=== PATIENT | female | born 1955 | race Caucasian/White ===

== ENCOUNTER 2016-05-27 15:15 | Outpatient (CLI) | payer MEDICARE, OTHER | END 2016-05-27 15:16 | disposition home or self-care (01) | DX: J47.9 Bronchiectasis, uncomplicated (principal); B44.81 Allergic bronchopulmonary aspergillosis; J45.909 Unspecified asthma, uncomplicated ==

== ENCOUNTER 2016-07-22 12:02 | Emergency (ER) | payer MEDICARE, OTHER ==
[2016-07-22] MEDS ORDERED: SODIUM CHLORIDE 0.9% 1,000 ML IV ONE ×2 (13:35→14:20)
[2016-07-22] MEDS ORDERED: ONDANSETRON 4 MG/2 ML VIAL IVP STA (13:36)
[2016-07-22] MEDS ORDERED: FAMOTIDINE 20 MG/50 ML 50 ML IV ONE ×2 (13:36→14:20)
[2016-07-22] MEDS ORDERED: HYDROmorphone 1 MG/ML SYRINGE IVP STA (13:36)
[2016-07-22] MEDS ORDERED: MAG HYDROX/AL HYDROX/SIMETH 30 ML UDC PO STA (13:36)
[2016-07-22] MEDS ORDERED: MAG HYDROX/AL HYDROX/SIMETH 30 ML UDC ONE (14:20)
[2016-07-22] MEDS ORDERED: ONDANSETRON 4 MG/2 ML VIAL ONE (14:20)
[2016-07-22] MEDS ORDERED: HYDROmorphone 1 MG/ML SYRINGE ONE ×2 (14:20→18:12)
[2016-07-22] MEDS ORDERED: ONDANSETRON 4 MG/2 ML VIAL IM STA (14:43)
[2016-07-22] MEDS ORDERED: HYDROmorphone 1 MG/ML SYRINGE IM STA ×2 (14:43→18:01)
[2016-07-22] MEDS ORDERED: FAMOTIDINE 20 MG TABLET PO STA (18:01)
[2016-07-22] MEDS ORDERED: FAMOTIDINE 20 MG TABLET ONE (18:12)
== END 2016-07-22 18:45 | disposition home or self-care (01) ==
DX: K80.20 Calculus of gallbladder without cholecystitis without obstruction (principal); K21.9 Gastro-esophageal reflux disease without esophagitis; E03.9 Hypothyroidism, unspecified
CPT/HCPCS: 36415; 76700; 80053; 81001; 83690; 85025; 87339; 96372; 99283; 99284; A9270; J1170

== ENCOUNTER 2016-09-22 11:47 | Outpatient (CLI) | payer MEDICARE, OTHER | END 2016-09-22 11:48 | disposition home or self-care (01) | DX: R19.02 Left upper quadrant abdominal swelling, mass and lump (principal) ==

== ENCOUNTER 2016-09-23 07:16 | Outpatient (CLI) | payer MEDICARE, OTHER ==
[2016-09-23] MEDS ORDERED: IOPAMIDOL-300 50 ML VIAL PO ONE (10:20)
[2016-09-23] MEDS ORDERED: IOPAMIDOL-300 100 ML VIAL IVP ONE (10:20)
== END 2016-09-23 07:17 | disposition home or self-care (01) ==
DX: K45.8 Other specified abdominal hernia without obstruction or gangrene (principal); K43.9 Ventral hernia without obstruction or gangrene
CPT/HCPCS: 74177; Q9967

== ENCOUNTER 2016-11-10 08:21 | Outpatient (CLI) | payer MEDICARE, OTHER ==
[2016-11-10] MEDS ORDERED: BARIUM SULFATE 135 ML BOTTLE PO ONE (21:58)
[2016-11-10] MEDS ORDERED: BARIUM SULFATE 176 GM BOTTLE PO ONE (21:58)
[2016-11-10] MEDS ORDERED: SIMETHICONE/SOD BICARB/CIT AC 1 EACH PACKET PO ONE (21:58)
--- NOTE | 2016-11-11 10:30 | XRAY Report ---
AIR CONTRAST UPPER GI SERIES AND SMALL BOWEL FOLLOW THROUGH: 11/11/2016 CLINICAL HISTORY: History of abdominal hernia plus lumbar hernia. The patient also has had a Micah procedure. FINDINGS: Preliminary KUB demonstrates extensive spinal surgery. Disla rods and pedicle screws are noted in place throughout the lumbar spine and extending into the lower thoracic spine. There is also evidence of disk prostheses at multiple levels including T11-T12, T12-L1, L1-L2, L2-L3, L3-L4, L4 -L5 and L5-S1. The bowel gas pattern demonstrates significant constipation. This constipation most likely is related to patient's pain medication including MS-Contin and OxyContin. There is interstitial parenchymal disease suggested in the right lower lobe. This raises concern in regard to chronic aspiration. Recommend a chest PA and lateral for further evaluation. Because of the severe constipation noted, Dr. Galan had an extensive conversation with the patient regarding either taking laxatives and coming back the following day or proceeding with the exam and then taking laxatives following the procedure. The patient chose to proceed with the examination today and indicated that she will take laxatives and enemas following the procedure to help eliminate the barium. Because of the significant constipation noted, it was decided only to give the patient two bottles of barium rather than the usual three for the small bowel follow through portion of the exam. The esophagus demonstrates evidence of a Micah procedure with narrowing and mild deformity of the gastric cardia due to the Micah procedure. Despite the Micah procedure, a moderate degree of gastroesophageal reflux is noted during the course of the examination. No hiatal hernia was seen. Esophageal motility was normal. As indicated above, deformity of the gastric cardia and small section of the upper body of the stomach is noted related to the Micah procedure. This deformity includes some narrowing in these areas. The rest of the stomach showed no obvious abnormality. There was some retained particulate matter noted. This most likely is related to decrease in patient's gastric motility due to her pain medication. Interestingly, there was peristalsis noted on present exam in both the stomach and duodenal bulb and therefore no gastroparesis was seen. The duodenal bulb shows no deformity. The duodenal sweep is normal. Small bowel follow through was done. Movement of barium through the small bowel was extremely slow especially through the ileum. The barium column did not reach the colon even at nearly eight hours following the start of the examination. The patient did return after twenty-four hours following the start of the examination and the barium column had reached the colon filling the cecum , ascending colon and transverse colon. The small bowel shows no significant dilatation. This slow movement of barium through the small bowel was not related to obstruction but rather to most likely decreased motility due to patient's pain medication regimen. Bowel was not seen in any ventral or spigelian hernia. IMPRESSION: 1. THE PATIENT HAD SIGNIFICANT EVIDENCE OF CONSTIPATION ON PRELIMINARY KUB. THIS MOST LIKELY IS THE RESULT OF HER PAIN MEDICATION REGIMEN OF MS-CONTIN AND OXYCODONE. 2. DEFORMITY OF THE GASTRIC CARDIA AND UPPER BODY OF THE STOMACH IS NOTED RELATED TO A PRIOR MICAH PROCEDURE. DESPITE THE MICAH PROCEDURE, A MODERATE DEGREE OF GASTROESOPHAGEAL REFLUX WAS NOTED. 3. SOME RETAINED FOOD PARTICLES ARE NOTED IN PATIENT'S STOMACH AND DUODENAL BULB. THIS IS A RESULT OF DECREASED GASTRIC MOTILITY DUE TO PATIENT'S PAIN REGIMEN. THE PATIENT DOES, HOWEVER, STILL SHOW SOME GASTRIC MOTILITY AND MOTILITY IN HER DUODENAL BULB AND, THEREFORE, SIGNIFICANT GASTROPARESIS IS NOT SEEN. 4. SMALL BOWEL SHOWS NO EVIDENCE OF OBSTRUCTION. THERE IS SIGNIFICANT DELAY IN SMALL BOWEL TRANSIT TIME MOST LIKELY A RESULT OF PATIENT'S PAIN MEDICATION REGIMENS DISCUSSED ABOVE. 5. MODERATE DEGREE OF INTERSTITIAL PARENCHYMAL DISEASE IS NOTED IN THE LOWER LUNG MOSQUEDA. THIS SUGGESTS CHRONIC ASPIRATION. SUGGEST PA AND LATERAL CHEST FOR FURTHER EVALUATION. ALSO MAY WANT TO DO A MODIFIED BARIUM SWALLOW TO CHECK FOR ASPIRATION. 6. EXTENSIVE SPINAL SURGERY IS SEEN WITH DISLA RODS AND PEDICLE SCREWS IN PLACE. THESE EXTEND FROM T10 DOWN THROUGH S1. DISK PROSTHESES ARE ALSO NOTED AT T11-T12, T12-L1, L1-L2, L2-L3, L3-L4, L4-L5 AND L5-S1. ADDENDUM: Fluoro time was 8 minutes and 41 seconds. This includes the fluoro time for both the upper GI series and small bowel follow through, 34 fluoroscopic images were obtained. END OF ADDENDUM MTDD
== END 2016-11-10 08:22 | disposition home or self-care (01) ==
LOC: DI 08:21
PROVIDERS: ATTEND Family Medicine
DX: K30 Functional dyspepsia (principal); K59.00 Constipation, unspecified; K21.9 Gastro-esophageal reflux disease without esophagitis; R91.8 Other nonspecific abnormal finding of lung field
CPT/HCPCS: 74249

== ENCOUNTER 2016-11-17 10:44 | Outpatient (CLI) | payer MEDICARE, OTHER | END 2016-11-17 10:45 | disposition critical access hospital (66) | LOC: EMS 10:44 | PROVIDERS: ATTEND Surgery | DX: M25.552 Pain in left hip (principal); M54.5 Low back pain; W01.0XXA Fall on same level from slipping, tripping and stumbling without subsequent striking against object, initial encounter; Y92.009 Unspecified place in unspecified non-institutional (private) residence as the place of occurrence of the external cause | CPT/HCPCS: A0425; A0427 ==

== ENCOUNTER 2016-11-17 11:06 | Inpatient (IN) | payer MEDICARE, OTHER ==
[2016-11-17] MEDS ORDERED: HYDROmorphone 1 MG/ML SYRINGE ONE ×3 (11:33→12:15)
--- NOTE | 2016-11-17 11:39 | ED Physician Documentation ---
PD HPI LOWER EXT INJURY - Stated complaint Stated Complaint: L HIP PX - Chief complaint Chief Complaint: Ext Problem - History obtained from History obtained from: Patient, EMS - History of Present Illness PD HPI LOW EXT INJURY LOCATION: Left, Hip Type of injury: Fall Where injury occurred: Home Timing - onset: Today Timing - duration: Hours Timing - details: Abrupt onset, Still present Improved by: Rest, Immobilization Worsened by: Moving, Palpating Associated symptoms: No: Weakness, Numbness, Tingling Contributing factors: No: Anticoagulated Similar symptoms before: Has not had sx before Recently seen: Clinic (Seen in the clinic with bronchiectasis and was on doxy and has finished this.) - Additional information Additional information: 61-year-old female with a history of osteopenia and bronchiectasis has fallen and broken her left hip. She was in her yard today getting ready to talk to her when she tripped over her broom. She landed on the left side has obvious deformity of the left hip and pain. She does have a history of abdominal and lumbar hernias these are unchanged from her usual. She does have some bronchiectasis and has recently taken a course of doxycycline she does not feel that she is completely recovered from that prior episode. She is on chronic pain management. Review of Systems Constitutional: denies: Fever Eyes: denies: Decreased vision Ears: denies: Ear pain Nose: denies: Congestion Throat: denies: Sore throat Cardiac: denies: Chest pain / pressure, Palpitations Respiratory: reports: Dyspnea, Cough GI: denies: Abdominal Pain, Nausea, Vomiting : denies: Dysuria, Frequency Skin: denies: Rash Musculoskeletal: reports: Back pain, Extremity pain, Joint pain. denies: Neck pain Neurologic: denies: Generalized weakness, Focal weakness, Numbness PD PAST MEDICAL HISTORY - Past Medical History Past Medical History: Yes Cardiovascular: None Respiratory: Asthma, Pneumonia, Shortness of breath Neuro: None Endocrine/Autoimmune: HyPOthyroidism GI: GERD, Other : Frequency HEENT: None Psych: Depression Musculoskeletal: Osteoarthritis, Osteopenia, Scoliosis, Chronic back pain Derm: None Other Past Medical History: oxygen at noc and prn. bronchiectasis. lumbar hernia, hiatal hernia? tarsal tunnel left ankle. "bad gallbladder" - Past Surgical History Past Surgical History: Yes General: Colonoscopy Ortho: Spine surgery - Present Medications Home Medications: Ambulatory Orders Medication Instructions Recorded Confirmed Ciclesonide [Omnaris] 1 sprays HENRY BID 12/12/12 11/17/16 Meloxicam [Mobic] 15 mg PO DAILY 12/12/12 11/17/16 Montelukast Sodium [Singulair] 10 mg PO DAILY 12/12/12 11/17/16 Ipratropium/Albuterol [Duoneb] 1 amp INH QID PRN 10/27/13 11/17/16 Albuterol Sulf [Ventolin Hfa 2 puffs INH Q4H PRN 11/17/16 11/17/16 Inhaler] Alendronate [Fosamax] 70 mg PO Q7D 11/17/16 11/17/16 Dicyclomine [Bentyl] 10 mg PO BID PRN 11/17/16 11/17/16 Esomeprazole Magnesium [Nexium] 40 mg PO QDAC 11/17/16 11/17/16 Fluticasone 220 Mcg [Flovent] 2 puffs INH BID 11/17/16 11/17/16 Levocetirizine Dihydrochloride 5 mg DAILY 11/17/16 11/17/16 [Xyzal] Levothyroxine Sodium [Synthroid] 50 mcg PO QDAC 11/17/16 11/17/16 Loratadine [Claritin] 10 mg PO DAILY 11/17/16 11/17/16 Morphine Sulfate [Ms Contin] 15 mg PO BID 11/17/16 11/17/16 Voriconazole [Vfend] 200 mg BID 11/17/16 11/17/16 oxyCODONE [Roxicodone] 5 mg PO BID PRN 11/17/16 11/17/16 - Allergies Allergies/Adverse Reactions: Allergies Allergy/AdvReac Type Severity Reaction Status Date / Time peanut Allergy Severe anaphylaxis Verified 11/17/16 11:10 Penicillins Allergy Intermediate unknown Verified 11/17/16 11:10 hydroxyzine HCl * Allergy Anxiety Verified 11/17/16 11:10 [From Vistaril] hydroxyzine pamoate * Allergy Anxiety Verified 11/17/16 11:10 [From Vistaril] tetanus toxoid, adsorbed Allergy Respiratory Verified 11/17/16 11:10 peas Allergy Intermediate unknown Uncoded 11/17/16 11:10 - Social History Does the pt smoke?: No Smoking Status: Never smoker Does the pt drink ETOH?: Yes Does the pt have substance abuse?: No - Immunizations Immunizations are current?: Yes - POLST Patient has POLST: No PD ED PE NORMAL - Vitals Vital signs reviewed: Yes (hypertension ) - General General: Well developed/nourished, Other (The patient appears to be in pain ) - HEENT HEENT: PERRL - Neck Neck: Supple, no meningeal sign, No bony TTP - Cardiac Cardiac: RRR, No murmur - Respiratory Respiratory: No respiratory distress, Other (bibasilar rhonchi worse on the left. ) - Abdomen Abdomen: Soft, Other (There is a central ventral hernia and the hernia is non- tender and without mass palpable. There are well healed surgical scars. ) - Back Back: No CVA TTP, No spinal TTP - Derm Derm: Normal color, No rash - Extremities Extremities: Other (There is shortening and external rotation on the left. There is pain to palpation over the trohcanter and with any movement of the left leg. ) Results - Vitals Vitals: Vital Signs - 24 hr 11/17/16 11/17/16 11/17/16 11:08 11:31 12:13 Temperature 36.9 C Heart Rate 73 80 77 Respiratory 17 16 Rate Blood Pressure 137/73 H 142/69 H O2 Saturation 93 93 92 11/17/16 11/17/16 11/17/16 12:20 12:35 13:27 Temperature Heart Rate 78 77 83 Respiratory 18 18 18 Rate Blood Pressure 130/70 130/70 127/73 O2 Saturation 90 L 93 96 Oxygen O2 Source Nasal cannula Oxygen Flow Rate 2 - EKG (time done) 1146 Rate: Rate (enter#) (75) Rhythm: NSR QRS: Low voltage Compare to prior EKG: Unchanged from prior EKG (10-27-14) Computer interpretation: Agree with computer - Labs Labs: Laboratory Tests 11/17/16 11/17/16 11/17/16 11:40 11:40 11:40 WBC 11.8 H RBC 4.18 L Hgb 11.4 L Hct 34.9 L MCV 83.4 MCH 27.3 MCHC 32.7 RDW 15.6 H Plt Count 359 MPV 7.4 L Neut # 9.6 H Lymph # 1.2 L Crowley # 0.8 Eos # 0.1 Baso # 0.0 Absolute Nucleated RBC 0.00 Nucleated RBCs 0.0 Sodium 138 Potassium 4.4 Chloride 105 Carbon Dioxide 26 Anion Gap 7.0 BUN 16 Creatinine 0.7 Estimated GFR (MDRD) 85 L Glucose 126 H Calcium 8.1 L Total Bilirubin 0.7 AST 38 ALT 33 Alkaline Phosphatase 200 H Troponin I < 0.04 Total Protein 6.4 L Albumin 3.2 Globulin 3.2 Albumin/Globulin Ratio 1.0 Lipase 14 L - Rads (name of study) 1 view chest Radiology: Prelim report reviewed (Impression: 1. Chronic interstitial infiltrates appear stable.2. Right midlung nodular density similar to slightly increased. Apparent new left-sided nodular density could represent a healed or healing rib fracture but a pulmonary nodule is not excluded. CT imaging could be considered for further evaluation.), EMP read indepedently, See rad report Left hip with pelvis Radiology: Prelim report reviewed (Impression: 1. Comminuted, displaced left intertrochanteric hip fracture.2 status post lumbar surgical fusion.), EMP read indepedently, See rad report Femur 2 view left Radiology: Prelim report reviewed (Impression: 1. Images of the distal femur demonstrate no acute abnormality. Refer to the recent left hip exam regarding proximal femur fracture. 2. Knee degenerative disease, substantially progressed compared to 2008.3. Very small knee joint effusion.), EMP read indepedently, See rad report PD MEDICAL DECISION MAKING - ED course Complexity details: reviewed old records, reviewed results, re-evaluated patient , considered differential, d/w patient, d/w family ED course: 61-year-old female with a history of bronchiectasis and osteopenia has fallen and broken her hip. Dr. Sanchez is consulted in the case and has asked for medicines help in managing the patient. Departure - Departure Disposition: [facility] DC/Xfer Clinical Impression: Intertrochanteric fracture of left femur Qualifiers: Encounter type: initial encounter Fracture type: closed Qualified Code(s): S72.142A - Displaced intertrochanteric fracture of left femur, initial encounter for closed fracture Condition: Stable Discharge Date/Time: 11/17/16 14:46
[2016-11-17] MEDS ORDERED: HYDROmorphone 1 MG/ML SYRINGE IVP STA ×2 (11:43→12:12)
[2016-11-17 12:03] LABS: BASOPHILS % (AUTO) 0.4 %; EOSINOPHILS # (AUTO) 0.1 10^3/uL (0.0-0.7); EOSINOPHILS % (AUTO) 1.3 %; HCT - HEMATOCRIT 34.9 % (37.0-47.0); HGB - HEMOGLOBIN 11.4 g/dL (12.0-16.0); LYMPHOCYTES # (AUTO) 1.2 10^3/uL (1.5-3.5); LYMPHOCYTES % (AUTO) 10.2 %; MEAN CORPUSCULAR HEMOGLOBIN 27.3 pg (27.0-31.0); MEAN CORPUSCULAR HGB CONC 32.7 g/dL (32.0-36.0); MEAN CORPUSCULAR VOLUME 83.4 fL (81.0-99.0); MEAN PLATELET VOLUME 7.4 fL (7.9-10.8); MONOCYTES # (AUTO) 0.8 10^3/uL (0.0-1.0); NEUTROPHILS # (AUTO) 9.6 10^3/uL (1.5-6.6); NEUTROPHILS % (AUTO) 81.1 %; RED BLOOD COUNT 4.18 10^6/uL (4.20-5.40); RED CELL DISTRIBUTION WIDTH 15.6 % (12.0-15.0); UNCORRECTED WHITE BLOOD COUNT 11.8 x10^3/uL; WHITE BLOOD COUNT 11.8 x10^3/uL (4.8-10.8)
[2016-11-17 12:16] LABS: BILIRUBIN,TOTAL 0.7 mg/dL (0.2-1.0); CALCIUM 8.1 mg/dL (8.5-10.3); CREATININE 0.7 mg/dL (0.4-1.0); POTASSIUM 4.4 mmol/L (3.5-5.0); TOTAL PROTEIN 6.4 g/dL (6.7-8.2)
--- NOTE | 2016-11-17 12:34 | XRAY Preliminary Report ---
Exam: XR Hip w/Pelvis 2-3V LT IMPRESSION: 1. Comminuted, displaced left intertrochanteric hip fracture. 2. Status post lumbar surgical fusion. [facility] SITE ID: [id number]
--- NOTE | 2016-11-17 12:37 | XRAY Report ---
EXAM: RIGHT/LEFT HIP AND PELVIS RADIOGRAPHY EXAM DATE: 11/17/2016 12:12 PM. HISTORY: Left hip fracture. COMPARISONS: None. TECHNIQUE: 1 view of the pelvis and 1 view of the hip. FINDINGS: Bones: Comminuted, displaced and angulated left intertrochanteric hip fracture. No other definite fra cture or bone lesions. Partial demonstration of changes of surgical fusion extending from S1 to at le ast L3. Joints: No dislocation. Soft Tissues: Residual enteric contrast within the colon, presumably from the upper GI/small bowel fo llow-through 11/10/2016. IMPRESSION: 1. Comminuted, displaced left intertrochanteric hip fracture. 2. Status post lumbar surgical fusion. [facility] Referring Provider Line: [phone] SITE ID: [id number]
--- NOTE | 2016-11-17 12:41 | XRAY Preliminary Report ---
Exam: XR Chest 1 View IMPRESSION: 1. Chronic interstitial infiltrates appear stable. 2. Right midlung nodular density is similar to slightly increased. Apparent new left-sided nodular de nsity could represent a healed or healing rib fracture but a pulmonary nodule is not excluded. CT juana ging could be considered for further evaluation. 3. Postoperative changes of the spine. [facility] SITE ID: [id number]
--- NOTE | 2016-11-17 12:44 | XRAY Report ---
EXAM: CHEST RADIOGRAPHY EXAM DATE: 11/17/2016 12:12 PM. CLINICAL HISTORY: Cough hip fracture. COMPARISON: 2 views 05/27/2016. TECHNIQUE: 1 view. FINDINGS: Lungs/Pleura: Mild bibasilar testis show infiltrates and mild diffuse increase interstitial markings appear similar. Subtle nodule within the right lung near the anterior end of the third rib is similar to slightly increased. Nodular density projecting over the left upper lung is relatively dense and s uperimposed over the posterior sixth rib and could represent a healed or healing fracture although it is not confirmed previously. Underlying pulmonary nodule is a consideration. No gross pleural effusi on. No pneumothorax. Mediastinum: Within exam limitations, cardiomediastinal contour is normal. Other: No definite acute osseous abnormality. Partial demonstration of lower thoracic and upper lumba r posterior surgical fusion and lower thoracic vertebroplasties. Partial demonstration of anterior hair rgical fusion of lower cervical spine. IMPRESSION: 1. Chronic interstitial infiltrates appear stable. 2. Right midlung nodular density is similar to slightly increased. Apparent new left-sided nodular de nsity could represent a healed or healing rib fracture but a pulmonary nodule is not excluded. CT juana ging could be considered for further evaluation. 3. Postoperative changes of the spine. [facility] Referring Provider Line: [phone] SITE ID: [id number]
--- NOTE | 2016-11-17 12:56 | XRAY Preliminary Report ---
Exam: XR Femur 2V LT IMPRESSION: 1. Images of the distal femur demonstrate no acute abnormality. Refer to the recent left hip exam reg arding a proximal femoral fracture. 2. Knee degenerative disease, substantially progressed compared to 2008. 3. Very small knee joint effusion. [facility] SITE ID: [id number]
--- NOTE | 2016-11-17 12:59 | XRAY Report ---
EXAM: LEFT FEMUR RADIOGRAPHY EXAM DATE: 11/17/2016 12:45 PM. CLINICAL HISTORY: Hip fx. COMPARISON: Left hip earlier on same day. Left knee 10/06/2007. TECHNIQUE: 2 views. FINDINGS: Bones: The proximal femur is not included but was included on the preceding hip exam which demonstrat ed a comminuted proximal femoral fracture. No fracture or acute bone lesion of the distal femur. Joints: Moderate 3 compartment knee osteoarthritis, substantially progressed from 2007. Very small apryl int effusion. No knee joint space malalignment. Soft Tissues: Normal. No soft tissue swelling. IMPRESSION: 1. Images of the distal femur demonstrate no acute abnormality. Refer to the recent left hip exam reg arding a proximal femoral fracture. 2. Knee degenerative disease, substantially progressed compared to 2007. 3. Very small knee joint effusion. [facility] Referring Provider Line: [phone] SITE ID: [id number]
[2016-11-17] MEDS ORDERED: fentaNYL 100 MCG/2 ML VIAL IVP STA (13:16)
[2016-11-17] MEDS ORDERED: fentaNYL 100 MCG/2 ML VIAL ONE (13:20)
[2016-11-17] MEDS ORDERED: HYDROmorphone 1 MG/ML SYRINGE IVP PRN ×4 (15:06→15:38)
--- NOTE | 2016-11-17 15:27 | CONSULTATION NOTE ---
Surgery Consult - Admit Date Hospital Admission Date: 11/17/16 - Consult Date Consult Date: 11/17/16 Requesting Provider: Sam Berry - Home Meds/Allergies Home Medications: Patient History Medication Instructions Recorded Confirmed Albuterol [Ventolin Hfa] 2 puffs INH Q4H PRN 12/12/12 11/17/16 Ciclesonide [Omnaris] 12.5 gm NS BID 12/12/12 11/17/16 Levothyroxine [Synthroid] 50 mcg PO QDAC 12/12/12 11/17/16 Meloxicam [Mobic] 15 mg PO DAILY 12/12/12 11/17/16 Montelukast Sodium [Singulair] 10 mg PO DAILY 12/12/12 11/17/16 Ipratropium/Albuterol [Duoneb] 1 amp INH QID PRN 10/27/13 11/17/16 Levocetirizine Dihydrochloride 5 mg DAILY 11/17/16 11/17/16 [Xyzal] Loratadine [Claritin] 1 tab DAILY 11/17/16 11/17/16 Morphine Sulfate [Ms Contin] 15 mg BID 11/17/16 11/17/16 Voriconazole [Vfend] 200 mg BID 11/17/16 11/17/16 Allergies/Adverse Reactions: Allergies Allergy/AdvReac Type Severity Reaction Status Date / Time peanut Allergy Severe anaphylaxis Verified 11/17/16 11:10 Penicillins Allergy Intermediate unknown Verified 11/17/16 11:10 hydroxyzine HCl * Allergy Anxiety Verified 11/17/16 11:10 [From Vistaril] hydroxyzine pamoate * Allergy Anxiety Verified 11/17/16 11:10 [From Vistaril] tetanus toxoid, adsorbed Allergy Respiratory Verified 11/17/16 11:10 peas Allergy Intermediate unknown Uncoded 11/17/16 11:10 - Consultation Note Consultation Note: Chief Complaint: Left Hip fracture HPI: 61 yo F with history of bronchiectasis on chronic intermittent antibiotics and prednisone fell at her home over a rake while in her yard. She had immediate pain in her hip and was unable to weight bear. She denies head injury or LOC. She had no hip pain prior to the fall. Her was immediately available and she was transported to [facility] for further evaluation. She was evaluated by Dr. Berry in the ER and imaging demonstrated a displaced unstable left intertrochanteric hip fracture and Ortho was consulted for the fracture, Hospitalist contacted for primary medical management. On initial evaluation patient has isolated pain to the left hip. A calero has been placed. Of note the patient is on chronic narcotics for chronic pain including morphine and oxycodone. She has home O2 available, but notes she checks her O2 levels with a home pulse ox before sleeping with this in place. She was last on Abx for her bronchiactasis 4 days ago. 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 Moderate to severe knee OA present no other fracture noted. Please see Radiology read for further details. Physical Exam: Gen: Alert and oriented, NAD Head: normocephallic atraumatic Card: RRR, no murmur Lung: severe expiratory crackles in bases, in inspiratory wheezes noted BUE: pain-free normal motion, 5/5 strength all groups, sensation and radial pulse intact RLE: pain-free hip/knee/ankle/foot motion, normal motor and sensory function, palpable DP pulse LLE: held in hip flexion/abduction/external rotation limited by pain, non- tender in distal femur/knee/ankle. normal ankle motion present, sensation intact to LT dorsum and plantar foot. palpable DP pulse A/P: 61 yo F with severe chronic respiratory disease, intermittent lung infections on Abx and pred intermittently, on chronic narcotic pain medication, history of significant spinal fusion with an acute unstable closed left intertrochanteric hip fracture of the femur (ICD 10- S72.142A). We discussed at length the diagnosis, risks and benefits of treatment options including surgery vs non-operative management. She has elected to undergo surgical fixation in the form of left femoral intramedullary nail (CPT 81693) - Consent for surgery attained - Appreciate Hospitalist team medical perioperative comanagment - needs preop EKG/Chest XR - needs CBC/CMP/Coags/type and screen - NPO at midnight - discussed with Hospitalist plan to optimize respiratory status preop - bedrest, calero in place (plan for immediate removal POD#1) - DVT proph: SCDs while in bed. Plan 6 weeks lovenox postop starting POD#1 - Will need PT for mobilization postop, OT for home safety need eval - Dispo: likely to home if can pass PT, may require SNIF if having difficulty mobilizing postop, WB status pending surgical findings. Will need follow-up in Ortho clinic 2 weeks postop for wound check then at 6 weeks w/ AP pelvis 2 views left femur to evaluate for healing and to advance WB - Pain management: Appreciate Hospitalist team periop management. Recommend increased narcotic needs as necessary and wean to baseline within 2 weeks postop.
[2016-11-17] MEDS: IPRATROPIUM/ALBUTEROL 3 ML NEB INH SCH ×2 (15:30→20:20)
[2016-11-17] MEDS: SODIUM CHLORIDE FLUSH 0.9% 10 ML SYRINGE IVP SCH ×2 (15:45→21:03)
[2016-11-17] MEDS: SODIUM CHLORIDE 0.9% 1,000 ML IV SCH (15:45)
[2016-11-17 16:37] LABS: INR 1.1 (0.8-1.2); PT - PROTHROMBIN TIME 12.5 secs (9.9-12.6)
[2016-11-17] MEDS ORDERED: HYDROmorphone 1 MG/ML SYRINGE IVP ONE (17:10)
[2016-11-17] MEDS ORDERED: DICYCLOMINE 10 MG CAPSULE PO PRN (18:14)
[2016-11-17] MEDS: HYDROmorphone 1 MG/ML SYRINGE IVP PRN (19:47)
[2016-11-17] MEDS ORDERED: CALCIUM CARBONATE CHEW 500 MG TABLET PO PRN (19:50)
[2016-11-17] MEDS: BUDESONIDE 0.5 MG/2 ML NEB INH SCH (20:20)
--- NOTE | 2016-11-17 20:25 | PROVIDER PROGRESS NOTE ---
Hospitalist Cross-cover Note - Cross-Cover Note Cross-Cover Note: Brief addendum to H/P Progress since admission After a nebulizer treatment , her coarse breath sounds which were scattered are (for the moment) nearly resolved. She reports chest "never clear to auscultation", but perhaps she is not using the nebs freqently enough at home. Will impress upon her before d/c.
--- NOTE | 2016-11-17 20:47 | HISTORY & PHYSICAL EXAMINATION ---
DATE OF ADMISSION: 11/17/2016 PRIMARY CARE PROVIDER: Dr. Krysten Sellers. PRIMARY MANAGER OF PURCHASING: Dr. Bang Quintanilla. CHIEF COMPLAINT: She tripped on a broom on the deck, then fell off the 1 ft high deck and in the process of trying to avoid a "faceplant" landed hard on her left hip with immediate pain. HISTORY OF PRESENT ILLNESS: The patient is a 61-year-old female who was out on her deck today and tripped over a broom, sounds like she tripped off the deck and had immediate left thigh pain She has known osteopenia and takes weekly fosamax. . She was found in the emergency room to have an unstable intratrochanteric femur fracture with lateral cortex extension and lessor trochanter involvement which has already been evaluated by Dr. Rob Sanchez , orthopaedic surgery, who has planned to take her for what sounds like cephalomedullary nailing tomorrow, November 18, after her respiratory status is optimized for surgery given her underlying bronchiectasis. The patient has had longstanding asthma and a diagnosis of bronchiectasis in the last several years with history including an empyema. She is followed by Dr. Bang Quintanilla and reports that she currently is actually "in between infections" and finished a course of doxycycline which was 14 days long, 4 days ago." Her normal sputum at best is light tinged color. She reports it is never clear and she can always tell when she gets chills and night sweats, no fevers, that she is probably developing an infection and she has not felt that way currently. She does not normally have an oxygen requirement. She uses Duoneb's for bronchiectasis, approximately 1 to 4 times a day, "it all depends on how she is doing". Most recently she is only needing it about twice a day and does not generally use a flutter valve, finds that when she is up and around and able to cough that she is able to mobilize her secretions. She has not had an asthma exacerbation since May of this year when she was last on corticosteroid taper which sounds that it started at 60 mg and she was on it for approximately 3 weeks. PAST MEDICAL HISTORY 1. Reactive airway disease as above since childhood. 2. Bronchiectasis. 3. Osteopenia. 4. Abdominal hernia. 5. Hypothyroidism. 6. History of a lumbar hernia 7. Chronic pain from prior spine surgery. SURGICAL HISTORY: 1. Left ankle surgery approximately 11 years ago. 2. 2015 T11 to S1 fusion for scoliosis. 3. Paraesophageal hernia repair in December of 2012. She denies having history with extubations for those surgeries. HOME MEDICATIONS 1. MS Contin 15 mg twice daily. 2. Oxycodone 5 mg tablets for breakthrough pain, she uses anywhere from 2 to 4 during the day and "depends on how much she is up and around and driving." 3. Duoneb's. She uses 1 to 4 per day and "her use of it depends on what her respiratory status is and that varies daily." 4. Fosamax 70 mg once weekly. 5. Nexium 20 mg twice daily. 6. Course of doxycycline of 14 days which was just finished 4 days ago. 7. 500/50 Advair twice daily. 8. Ventolin rescue inhaler every 2 hours if needed for wheezing and she reports not having used that for at least 3 days and has not needed it 9. levothyroxine 50 mcg po daily 10. Voriconazole dose to be verified for bronchiectasis 11. Flexeril prn 12 Bentyl 5 mg prn abdominal pain 13 meloxicam ; dose reconciliation jpending 14 singulair 10 mg po daily. ALLERGIES: 1. PENICILLIN TO WHICH SHE DEVELOPS A RASH AND HIVES. 2. PEANUTS CAUSE REPORTED ANAPHYLAXIS. 3. VISTARIL PER HER MAKES HER "CRAZY." 4. OTHER FOOD ALLERGY INCLUDES TEAS. 5. TETANUS ALLERGY. SOCIAL HISTORY: She is . She has 2 adopted children, 1 aged 10 and 1 aged 13. She reports being very active "taking them around for their daily needs." She did work for [employer] and is currently on disability. The disability started primarily around the time when she was diagnosed with the bronchiectasis. FAMILY HISTORY: Includes non-Hodgkin's lymphoma in her father which was his cause of , mother is still living. According to the she was just diagnosed with a melanoma. Sister has allergies. HABITS: Never smoker as she has had asthma all her life. She has occasional alcohol, which she reports drinking wine when she is at her book club. REVIEW OF SYSTEMS: HEENT: No current night sweats, fever, or intentional weight loss or weight gain. As above, she reports that having some night sweats suggests an incipient pulmonary infection. She does wear glasses. Denies vision changes. CARDIOVASCULAR: She denies chest pain, palpitations, near syncope, or change in activity tolerance. RESPIRATORY: As per the HPI. GI: Denies any nausea or vomiting. She does have chronic constipation on her pain medicines. She reports recently having had a gastric emptying test which she reports was negative. However, she reportedly still has barium in her colon. She does take Senna 3 tablets twice daily with relative success. : She denies any frequency, dysuria, or hesitancy, and does not routinely get urinary tract infection. MUSCULOSKELETAL: She has had lower back surgery as above with some chronic left lower extremity paresthesias, but no prior falls. She is normally up and about without an assistive device. PSYCH: She reports that she tries to be very judicious in her use of pain medicine and she does not want to develop tolerance and indicates that she very infrequently uses more than 4 of her oxycodone daily. ENDOCRINE: She denies any polyuria or polyphagia. HEMATOLOGIC: She denies any easy bruising or bleeding. PHYSICAL EXAMINATION: VITAL SIGNS: VITAL SIGNS in the emergency room on presentation: Afebrile 36.9, heart rate 73, blood pressure 137/73, respiratory rate 17, oxygenation 93% on room air. After several doses of IV opiate in the form of both Fentanyl and IV Dilaudid for pain her respiratory rate remains 18. She is on 2 liters nasal cannula at 96%, that was per her request to be on oxygen. Blood pressure continues 127/73 and heart rate 83. GENERAL: The patient is a very pleasant female lying on the stretcher with her and son at the bedside. She is alert, oriented, and appropriate, not necessarily tangential but extremely garrulous and provides almost excessive information regarding her medical history although she is a good and accurate historian. HEENT: She has ample red hair. She is wearing glasses. Her sclerae are anicteric. Extraocular movements are intact. Oral mucosa is somewhat dry. She has both her own upper and lower teeth, adequate dentition. Her neck is supple. scar on the left neck following a Cspine surgery. Carotids are +2 and with no appreciable bruits. HEART: Regular S1, S2, with no appreciable sounds with a rate of approximately 75. CHEST: She has unlabored respirations at rest. She has an occasional loose cough , but infrequent. There is no audible wheezing without auscultation. On auscultation she has scattered rhonchorous sounds which if she is asked to cough will then clear and reappear elsewhere. There are occasional low pitched sonorous sounds and again these are transient and mobile as far as where these sounds were appearing. ABDOMEN: Notable for a wide midline scar which is well-healed. She has a reducible abdominal hernia that is approximately mandarin orange sized in her right upper abdomen. Her bowel sounds are positive in all quadrants. Her abdomen is soft, nondistended, nontender. There is no suprapubic tenderness. She has a Schwartz intact draining clear yellow urine. MUSCULOSKELETAL: On her left lower extremity hip has some modest tissue swelling with no evident hematoma or bruising. At this time there is no external rotation of her foot. There were efforts made not to move her. She has +2 peripheral pulses, both dorsalis pedis and posterior tibial on the affected side. She has no edema on either lower extremity. SKIN: Warm and dry and notable for extensive freckling, as well as what appear to be chronic skin changes and possibly even sunburn on her left upper arm. DIAGNOSTIC STUDIES Plain film of the hip and pelvic 11/17/2016: 1. Comminuted displaced left intratrochanteric hip fracture. 2. Status post lumbar surgical fusion. Chest x-ray 11/17/2016: 1. Chronic interstitial infiltrates which appear stable. Specifically these were mild, diffuse, increased interstitial markings. 2. A right mid lung nodular density similar to a prior study and perhaps slightly increased, the dimensions are not noted. 3. An evidently new left sided nodular density could either be a healed or healing rib fracture which she does report having, pulmonary nodule not excluded. A 12-lead EKG normal sinus rhythm with a normal axis, with a rate of approximately 75 with no acute ischemic changes. LABORATORY STUDIES: 1. White count at 11.8, hemoglobin 11.4, hematocrit 34.9, platelets 359,000, sodium 138, potassium 4.4, chloride 105, bicarb 26, BUN 16, creatinine 0.7 and glucose 126. PROBLEMS 1. Femur fracture status post mechanical fall. She has already been seen by Dr. Rob Sanchez and conceivably he would have taken her to surgery today, however, given her bronchiectasis, we will optimize her pulmonary status overnight and he plans to take her to surgery for repair tomorrow morning. She is n.p.o. after midnight. She already has a Schwartz in place. For DVT prophylaxis he has only ordered SCDs while in bed with Lovenox to start postop. 2. Bronchiectasis. The patient is currently "in between" acute infections and is probably as close to her best baseline as is possible. To optimize her respiratory status prior to surgery tomorrow: a. We will have Duoneb scheduled every 4 hours. b. She will start use of flutter valve every 2 hours while awake. c. We will consider whether postural percussion is of any actual utility postop , however, the flutter valve evaluation should be adequate, plus she will be able to be ambulatory. d. A chest x-ray did not suggest current acute infiltrate so there is no need for additional antibiotics at this time. she will continue her voriconizole. I will contact her business office representative if he recommends any other specific intervention perioperatively to reduce complications. 3. Asthma. At home she is managed on high dose Advair. We do not have Advair here, she will be on pulmicort nebs. She does not have any acute wheezing at this time, and as above she is already going to be getting Duoneb's scheduled for her bronchiectasis. There is no indication for corticosteroids for her asthma at this time. She does not have an actual oxygen requirement at this time , but oxygen was placed in the emergency room due to at her request and due to opiate analgesics. Singulair will be continued post op. I need to get the dose on that and pharmacy still needs to do a medication reconciliation. 4. Chronic pain. At home she is on a relatively low daily dose of MS Contin at 15 mg twice daily which is a total of 30 mg daily. This equates to only approximately 10 of IV morphine equal analgesic equivalent in 24 hrs. At this time she has received several doses of Fentanyl in the emergency room, as well as IV Dilaudid. She appears comfortable and given the relatively infrequent use of breakthrough oxycodone at home she should not have an excessive opiate need. 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 5. Hypothyroidism. She will continue on her home dose of levothyroxine, that can resume tomorrow at postop. 6. CODE STATUS: SHE IS A FULL CODE. 7. Osteopenia. Postop she can resume her Fosamax or as otherwise advised by the orthopaedic surgeon. JOB #: [id number] [facility] JOB #:[id number] MTDD
[2016-11-17] MEDS: VORICONAZOLE 200 MG PO SCH (21:02)
[2016-11-18] MEDS: SODIUM CHLORIDE 0.9% 1,000 ML IV SCH ×3 (00:03→16:57)
[2016-11-18] MEDS: HYDROmorphone 1 MG/ML SYRINGE IVP PRN ×6 (00:03→20:25)
[2016-11-18] MEDS: IPRATROPIUM/ALBUTEROL 3 ML NEB INH SCH ×6 (00:10→20:45)
[2016-11-18] MEDS: SODIUM CHLORIDE FLUSH 0.9% 10 ML SYRINGE IVP SCH ×3 (06:01→20:26)
[2016-11-18] MEDS ORDERED: HYDROmorphone 1 MG/ML SYRINGE IVP PRN (06:29)
[2016-11-18 06:45] LABS: HCT - HEMATOCRIT 33.9 % (37.0-47.0); HGB - HEMOGLOBIN 11.3 g/dL (12.0-16.0); MEAN CORPUSCULAR HEMOGLOBIN 28.2 pg (27.0-31.0); MEAN CORPUSCULAR HGB CONC 33.3 g/dL (32.0-36.0); MEAN CORPUSCULAR VOLUME 84.6 fL (81.0-99.0); MEAN PLATELET VOLUME 7.4 fL (7.9-10.8); RED BLOOD COUNT 4.01 10^6/uL (4.20-5.40); RED CELL DISTRIBUTION WIDTH 15.6 % (12.0-15.0); WHITE BLOOD COUNT 5.9 x10^3/uL (4.8-10.8)
[2016-11-18] MEDS ORDERED: NON FORMULARY MED (Levothyroxine Sodium [Synthroid] 50 MCG) PO SCH (07:00)
[2016-11-18] MEDS ORDERED: ACETAMINOPHEN 1,000 MG/100 ML VIAL IV ONE (07:30)
[2016-11-18] MEDS ORDERED: KETOROLAC 30 MG/ML VIAL IVP ONE (07:30)
[2016-11-18] MEDS ORDERED: fentaNYL 100 MCG/2 ML VIAL IVP ONE (07:30)
[2016-11-18] MEDS ORDERED: LIDOCAINE-MPF 2% 5 ML VIAL IM ONE (07:30)
[2016-11-18] MEDS ORDERED: TRANEXAMIC ACID 1,000 MG/10 ML VIAL IV ONE (07:30)
[2016-11-18] MEDS ORDERED: PHENYLEPHRINE 50 MG/5 ML VIAL IV ONE (07:30)
[2016-11-18] MEDS ORDERED: PROPOFOL 200 MG/20 ML VIAL IVP ONE (07:30)
[2016-11-18] MEDS ORDERED: ceFAZolin 1 GM VIAL IV ONE (07:30)
[2016-11-18] MEDS ORDERED: DEXAMETHASONE 4 MG/ML VIAL IVP ONE (07:30)
[2016-11-18] MEDS ORDERED: MIDAZOLAM 2 MG/2 ML VIAL IVP ONE (07:30)
[2016-11-18] MEDS ORDERED: ONDANSETRON 4 MG/2 ML VIAL IVP ONE (07:30)
[2016-11-18] MEDS ORDERED: LACTATED RINGERS 1,000 ML IV ONE ×3 (07:53→10:47)
[2016-11-18] MEDS ORDERED: POLYETHYLENE GLYCOL 3350 17 GM PACKET PO SCH (09:00)
[2016-11-18] MEDS ORDERED: LIDOCAINE 1%-EPI 1:100000 20 ML MDV SUBQ ONE ×2 (09:01→09:32)
[2016-11-18] MEDS ORDERED: SODIUM CHLORIDE 0.9% 1,000 ML IV ONE (09:31)
[2016-11-18] MEDS ORDERED: ONDANSETRON 4 MG/2 ML VIAL IVP PRN (09:54)
[2016-11-18] MEDS ORDERED: SODIUM CHLORIDE FLUSH 0.9% 10 ML SYRINGE IVP PRN (09:54)
[2016-11-18] MEDS ORDERED: PROCHLORPERAZINE 10 MG/2 ML VIAL IVP PRN (09:54)
[2016-11-18] MEDS ORDERED: ceFAZolin 2 GM/50 ML 50 ML IV SCH ×2 (10:00→14:00)
[2016-11-18] MEDS: fentaNYL 100 MCG/2 ML VIAL ONE ×3 (10:00→10:15)
--- NOTE | 2016-11-18 10:08 | PROVIDER PROGRESS NOTE ---
Subjective - General Admit Date: 11/17/16 Procedure Date: 11/18/16 Post Op Days: 0 Procedure Performed: Patient doing well overnight, respiratory status improved with treatment Objective - Patient Data Vital Signs: Vital Signs x48h Temp Pulse Pulse Resp BP Pulse Ox 11/18/16 09:50 96 11/18/16 09:45 96 11/18/16 09:40 98 11/18/16 09:35 97 11/18/16 09:29 97 11/18/16 05:00 36.7 C 65 16 94/62 96 11/18/16 04:30 77 16 Weight: Weight 11/16/16 11/17/16 11/18/16 23:59 23:59 23:59 Weight (kg) 144 kg Intake & Output: Intake and Output Totals x24h 11/16/16 11/17/16 11/18/16 23:59 23:59 23:59 Intake Total 2354 798 Output Total 1350 2200 Balance 1004 -1402 - Lab Results Lab Results: 11/18/16 06:39 11/17/16 11:40 Other Lab Results: Lab Results x24hrs 11/18/16 11/18/16 11/17/16 Range/Units 06:39 06:39 16:14 WBC 5.9 (4.8-10.8) x10^3/uL RBC 4.01 L (4.20-5.40) 10^6/uL Hgb 11.3 L (12.0-16.0) g/dL Hct 33.9 L (37.0-47.0) % MCV 84.6 (81.0-99.0) fL MCH 28.2 (27.0-31.0) pg MCHC 33.3 (32.0-36.0) g/dL RDW 15.6 H (12.0-15.0) % Plt Count 299 (130-450) 10^3/uL MPV 7.4 L (7.9-10.8) fL PT 12.5 (9.9-12.6) secs INR 1.1 (0.8-1.2) Blood Type O POSITIVE Antibody Screen NEGATIVE - Current Medications Current Medications: Current Medications Generic Name Dose Route Start Last Admin Trade Name Freq PRN Reason Stop Dose Admin Albuterol/Ipratropium 3 ml 11/17/16 15:30 11/18/16 04:30 Duoneb INH 3 ml RTQ4H ANIRUDH Administration Budesonide 0.5 mg 11/17/16 19:00 11/17/16 20:20 Pulmicort INH 0.5 mg RTBID ANIRUDH Administration Calcium Carbonate/Glycine 500 mg 11/17/16 19:50 11/17/16 21:32 Tums PO 500 mg Q6H PRN Administration Heartburn Sodium Chloride 1,000 mls @ 100 mls/hr 11/17/16 14:00 11/18/16 00:03 Normal Saline 0.9% IV 100 mls/hr .Q10H ANIRUDH Administration Non-Formulary Medication 200 mg 11/17/16 21:00 11/17/16 21:02 Voriconazole [Vfend] PO Not Given BID ANIRUDH Sodium Chloride 10 ml 11/17/16 14:00 11/18/16 06:01 Normal Saline Flush 0.9% IVP Not Given Q8HR ANIRUDH - Physical Exam General Appearance: positive: No acute distress, Alert Eyes Bilateral: positive: Normal inspection Respiratory: positive: No respiratory distress Extremities: positive: Nml appearance (LEft LE: held in gentle hip flexion/ abduction/external rotation, sensation remains intact to dorsum/plantar foot, Palpable DP pulse, 5/5 EHL/FHL/TA/GSC) Impression/Plan - Problem List Problem List: 61 yo F with left hip unstable intertrochanteric fracture, 1 day from injury doing well after neb treatments, hx brochiectasis. - NPO - to surgery today
[2016-11-18] MEDS: HYDROmorphone 1 MG/ML SYRINGE ONE ×3 (10:09→10:40)
--- NOTE | 2016-11-18 10:15 | POST OP PROGRESS NOTE ---
Subjective - General Admit Date: 11/17/16 Procedure Date: 11/18/16 Post Op Days: 0 Procedure Performed: Left hip intramedullary nail (CPT 37007) - Review of Systems Drain Type: none Surgery Impression Plan - FEN FEN: Operative Report Preop Diagnosis: Left displaced intertrochanteric hip fracture Postop Diagnosis: Same Procedure: Left hip intramedullary nail Anesthesia: General EBL: 20cc Complications: none Operative indication: Ms Hayden is a 61 yo F with chronic lung disease and intermittent lung infections who fell at home onto her left hip and sustained a displaced left IT fracture with lesser trochanteric extension. She was admitted to the Hospitalist service from the ER yesterday and has undergone respiratory optimization. She is doing well this AM and would like to go forward with surgery Implants: Leo Natural Nail 130 deg angle, 13mm diameter with single distal locking screw, short nail Operative Procedure: Patient was identified on the floor and her operative site was marked with her agreement. She was transported to the OR in stable condition. Once in the OR a time out was performed where the patients identity, surgical site and procedure were verified and all were in agreement. She recieved 1 gm of tranexamic acid to decrease perioperative bleeding risk. She underwent IV antibiotics to decrease perioperative infection risk and general anesthesia and intubation without difficulty. She was placed on the fracture table and the left hip fracture was reduced and verified on fluoroscopy to be in good position. She was then prepped and drapped in normal sterile fashion for approach to the hip. An incision was made proximal to the greater trochanter and a guide wire was placed. This was verified to be in good position on both AP and lateral images. The wire was advanced and the entry reamer was advanced. A ball tip guide olivares was placed and the canal was sequentially reamed to 14.5 to accommodate a 13 mm diameter nail. The short nail was chosen at 130 deg neck angle. This was inpacted in place. The cephalomedullary drill guide was placed and the screw was drilled into the head. The position was verified on AP, lateral and multiple rotational lateral views and was confirmed to outside the joint. The screw was measured and a 110mm screw was placed. The distal guide arm was used to drill and place the distal interlocking screw. The targeting jig was removed after locking the nail proximally. Final images demonstrated good reduction and hardware position. The wounds were copiously irrigated with normal saline and closed in layers with #0 vicryl, 2-0 vicryl and fransico. Dressings were applied and the patient was awoken from anesthesia in stable condition. Postop Plan: - AP pelvis 2 views left hip in PACU - returning to Hospitalist service for perioperative management - Dressing change POD#3 - DVT proph: start lovenox POD#1 and continue for 4 weeks, then transition to ASA 325 mg EC PO daily for 6 weeks, SCDs while inpatient - encourage incentive spirometry at bedside - 24 hrs IV abx - PWB LLE, 75% body weight x 6 weeks then ok to advance to full - up with PT POD#1, gait training and assistive device eval - appreciate OT eval for home safety needs - ADAT - Dispo: currently planning to dc to home when pass PT and cleared by Hospitalist, may require SNIF if difficulty with PT Will need F/U 2 weeks postop in Ortho Clinic for wound check and stables out, then at 6 weeks with AP pelvis, 2 views left hip to advance activity - Problem List (1) Intertrochanteric fracture of left femur Qualifiers: Encounter type: initial encounter Fracture type: closed Qualified Code(s) : S72.142A - Displaced intertrochanteric fracture of left femur, initial encounter for closed fracture
[2016-11-18] MEDS ORDERED: IPRATROPIUM/ALBUTEROL 3 ML NEB INH ONE (10:38)
--- NOTE | 2016-11-18 11:06 | XRAY Report ---
TWO-VIEW LEFT HIP: 11/18/2016 CLINICAL INDICATION: Post-op. FINDINGS: Frontal view of the hips and pelvis and cross table lateral view of the left hip demonstra te short IM swati and dynamic compression screw fixation of the intertrochanteric fracture. Alignment appears near anatomic. IMPRESSION: EXPECTED POSTOPERATIVE APPEARANCE OF LEFT HIP FRACTURE FIXATION. JOB #: [id number] EXT JOB #:[id number]
--- NOTE | 2016-11-18 11:18 | PROVIDER PROGRESS NOTE ---
Subjective - Prog Note Date Prog Note Date: 11/18/16 Prog Note Time: 11:13 - Subjective Subjective: it hurts (falling asleep during my exam) just returned from surgery Current Medications - Current Medications Current Medications: Active Medications Generic Name Dose Route Start Last Admin Trade Name Freq PRN Reason Stop Dose Admin Albuterol/Ipratropium 3 ml 11/17/16 15:30 11/18/16 04:30 Duoneb INH 3 ml RTQ4H ANIRUDH Administration Budesonide 0.5 mg 11/17/16 19:00 11/17/16 20:20 Pulmicort INH 0.5 mg RTBID ANIRUDH Administration Calcium Carbonate/Glycine 500 mg 11/17/16 19:50 11/17/16 21:32 Tums PO 500 mg Q6H PRN Administration Heartburn Dicyclomine HCl 10 mg 11/17/16 18:14 Bentyl PO BID PRN Abdominal Pain Enoxaparin Sodium 40 mg 11/19/16 09:00 Lovenox SUBQ DAILY ANIRUDH Hydromorphone HCl 1 mg 11/18/16 06:29 Dilaudid Inj IVP Q2HR PRN PAIN Sodium Chloride 1,000 mls @ 100 mls/hr 11/17/16 14:00 11/18/16 00:03 Normal Saline 0.9% IV 100 mls/hr .Q10H ANIRUDH Administration Cefazolin Sodium/Dextrose 50 mls @ 100 mls/hr 11/18/16 10:00 Ancef 2 Gm/50 Ml IV 11/18/16 18:29 Q8H ANIRUDH Levothyroxine Sodium 50 mcg 11/18/16 15:00 Synthroid PO QDAC ANIRUDH Montelukast Sodium 10 mg 11/18/16 12:00 Singulair PO DAILY ANIRUDH Non-Formulary Medication 200 mg 11/17/16 21:00 11/17/16 21:02 Voriconazole [Vfend] PO Not Given BID ANIRUDH Ondansetron HCl 4 mg 11/18/16 09:54 Zofran Inj IVP Q6HR PRN Nausea / Vomiting Polyethylene Glycol 17 gm 11/19/16 09:00 Miralax PO DAILY ANIRUDH Prochlorperazine Edisylate 10 mg 11/18/16 09:54 Compazine Inj IVP Q6HR PRN Nausea / Vomiting Sodium Chloride 10 ml 11/17/16 13:47 Normal Saline Flush 0.9% IVP PRN PRN NEEDED PER PROVIDER ORDERS Sodium Chloride 10 ml 11/17/16 14:00 11/18/16 06:01 Normal Saline Flush 0.9% IVP Not Given Q8HR ANIRUDH Sodium Chloride 10 ml 11/18/16 14:00 Normal Saline Flush 0.9% IVP Q8HR ANIRUDH Sodium Chloride 10 ml 11/18/16 09:54 Normal Saline Flush 0.9% IVP PRN PRN NEEDED PER PROVIDER ORDERS Ciclesonide [Omnaris] 1 sprays HENRY BID 12/12/12 Meloxicam [Mobic] 15 mg PO DAILY 12/12/12 Montelukast Sodium [Singulair] 10 mg PO DAILY 12/12/12 Ipratropium/Albuterol [Duoneb] 1 amp INH QID PRN 10/27/13 Albuterol Sulf [Ventolin Hfa Inhaler] 2 puffs INH Q4H PRN 11/17/16 Alendronate [Fosamax] 70 mg PO Q7D 11/17/16 Dicyclomine [Bentyl] 10 mg PO BID PRN 11/17/16 Esomeprazole Magnesium [Nexium] 40 mg PO QDAC 11/17/16 Fluticasone 220 Mcg [Flovent] 2 puffs INH BID 11/17/16 Levocetirizine Dihydrochloride [Xyzal] 5 mg DAILY 11/17/16 Levothyroxine Sodium [Synthroid] 50 mcg PO QDAC 11/17/16 Loratadine [Claritin] 10 mg PO DAILY 11/17/16 Morphine Sulfate [Ms Contin] 15 mg PO BID 11/17/16 Voriconazole [Vfend] 200 mg BID 11/17/16 oxyCODONE [Roxicodone] 5 mg PO BID PRN 11/17/16 Objective - Vital Signs/Intake & Output Reviewed Vital Signs: Yes Vital Signs: Vital Signs x48h Temp Pulse Pulse Resp BP Pulse Ox 11/18/16 10:55 97 11/18/16 10:45 97 11/18/16 10:35 94 11/18/16 10:20 94 11/18/16 10:05 94 11/18/16 09:50 96 11/18/16 09:45 96 11/18/16 09:40 98 11/18/16 09:35 97 11/18/16 09:29 97 11/18/16 05:00 36.7 C 65 16 94/62 96 11/18/16 04:30 77 16 Intake & Output: Intake & Output 11/15/16 11/16/16 11/17/16 11/18/16 23:59 23:59 23:59 23:59 Intake Total 2354 798 Output Total 1350 2200 Balance 1004 -1402 - Objective General Appearance: positive: No acute distress, Other (laying in bed using her iphone drifts off to sleep while I was ausculatating her chest spoke with her and on return from femur Fx repair) Eyes Bilateral: positive: EOMI, No scleral icterus Respiratory: positive: No respiratory distress. negative: Breath sounds nml ( unlabored resps, no cough, breath sounds currently diffusely rhonchoros (got a neb already in the pacu per RT)) Cardiovascular: positive: Regular rate & rhythm, No murmur Abdomen: positive: Nml bowel sounds, No distention, Other (old midline scar ( vertical)) Skin: positive: Warm, Dry Extremities: positive: Other (dressing over L hip clean , dry) Neurologic/Psychiatric: positive: Oriented x3, Mood/affect nml (very talkative, any time she drifts off to sleep, when aroused she immediatly requests analgesic ( also saw her drift off during convrsation) - Lab Results Fish Bones: 11/18/16 06:39 11/17/16 11:40 Other Labs: Lab Results x24hrs 11/18/16 11/18/16 11/17/16 Range/Units 06:39 06:39 16:14 WBC 5.9 (4.8-10.8) x10^3/uL RBC 4.01 L (4.20-5.40) 10^6/uL Hgb 11.3 L (12.0-16.0) g/dL Hct 33.9 L (37.0-47.0) % MCV 84.6 (81.0-99.0) fL MCH 28.2 (27.0-31.0) pg MCHC 33.3 (32.0-36.0) g/dL RDW 15.6 H (12.0-15.0) % Plt Count 299 (130-450) 10^3/uL MPV 7.4 L (7.9-10.8) fL PT 12.5 (9.9-12.6) secs INR 1.1 (0.8-1.2) Blood Type O POSITIVE Antibody Screen NEGATIVE Assessment/Plan - Problem List (1) Intertrochanteric fracture of left femur Impression: status post mechanical fall (tripped over a broom and fell from a 1 foot deck) / rotated to try to break fall from 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 Sanchez 20 cc EBL POSt op ortho recs per surgeon: 75 % Weight bear x 6 wks then full PT Postop eval day 1 11/19 lovenox (start Postop day 1 71x 4 wks then ASA 325EC x 6 wks PLUS SCDs inhouse IS, 24 hrs ABx (ancef) ortho clinic f/u 2 wks for wound check/ fransico out; 6 wks for films Qualifiers: Encounter type: initial encounter Fracture type: closed Qualified Code(s) : S72.142A - Displaced intertrochanteric fracture of left femur, initial encounter for closed fracture (2) Bronchiectasis Impression: much better overnight with RTC nebs continue q4h duoneb continuing overnight continue flutter valve continue home voriconazole (Rx'd by her 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 man) once she is mobilized with physical therapy tomorrow and upright can change duonebs to q 6 hrs, and q 2 h prn congestion/wheeze (3) Asthma Impression: continue inhaled steroid (on high dose advair at home; can resume on d/c) continue singulair no indication for systemic steroid at this time (and prefer not to use after ortho surgery) (4) Chronic pain Impression: as noted on admission, althought on bid MS contin, relatively low dose (only 30 mg po in 24 hrs, and infrequently takes prn 5 mg oxycodone) d/w patient will resume her PO MS contin post op today (first dose ~ 12pm can gradually adjust dose timing to be back on her home ~ 9a, 9p dosing today getting 1 mg dilaudid for post op pain q 2 hr prn, as pain improves transition to prn oxycodone (is already on her med list) resume home 3 senna bid (5) Hypothyroidism Impression: stable, continue home LT4
--- NOTE | 2016-11-18 11:45 | XRAY Report ---
INTRAOPERATIVE LEFT HIP: 11/18/2016 CLINICAL INDICATION: Fracture fixation. FINDINGS: Intraoperative matrix images demonstrate dynamic compression screw and short intramedullar y swati fixation of the intertrochanteric fracture. One minute 20 seconds of fluoroscopy time was provided to Dr. Sanchez; eight spot images obtained. IMPRESSION: DOCUMENTATION OF FLUOROSCOPY AND INTRAOPERATIVE IMAGING. JOB #: [id number] EXT JOB #:
[2016-11-18] MEDS: BUDESONIDE 0.5 MG/2 ML NEB INH SCH ×2 (11:57→16:20)
[2016-11-18] MEDS: VORICONAZOLE 200 MG PO SCH ×2 (11:58→21:27)
[2016-11-18] MEDS: MONTELUKAST 10 MG TABLET PO SCH (12:02)
[2016-11-18] MEDS: MORPHINE ER 15 MG TABLET PO SCH ×2 (12:02→21:26)
[2016-11-18] MEDS: ceFAZolin 2 GM/50 ML 50 ML IV SCH ×2 (13:53→21:26)
[2016-11-18] MEDS ORDERED: SODIUM CHLORIDE FLUSH 0.9% 10 ML SYRINGE IVP SCH (14:00)
[2016-11-18] MEDS: LEVOTHYROXINE 25 MCG TABLET PO SCH (14:17)
[2016-11-18] MEDS: SODIUM CHLORIDE FLUSH 0.9% 10 ML SYRINGE IVP PRN ×2 (16:06→18:07)
[2016-11-18] MEDS ORDERED: SENNA 8.6 MG TABLET PO PRN (18:58)
[2016-11-18] MEDS ORDERED: POLYETHYLENE GLYCOL 3350 17 GM PACKET PO PRN (19:00)
[2016-11-19] MEDS: HYDROmorphone 1 MG/ML SYRINGE IVP PRN ×2 (01:33→03:32)
[2016-11-19] MEDS: SODIUM CHLORIDE 0.9% 1,000 ML IV SCH ×3 (01:33→21:06)
[2016-11-19] MEDS ORDERED: HYDROmorphone 1 MG/ML SYRINGE IVP PRN (04:57)
[2016-11-19] MEDS: LEVOTHYROXINE 25 MCG TABLET PO SCH (06:27)
[2016-11-19] MEDS: oxyCODONE 5 MG TABLET PO PRN ×3 (06:27→15:44)
[2016-11-19] MEDS: SODIUM CHLORIDE FLUSH 0.9% 10 ML SYRINGE IVP SCH ×3 (06:28→22:47)
[2016-11-19 06:40] LABS: HCT - HEMATOCRIT 30.9 % (37.0-47.0); MEAN CORPUSCULAR HEMOGLOBIN 27.3 pg (27.0-31.0); MEAN CORPUSCULAR HGB CONC 32.5 g/dL (32.0-36.0); MEAN CORPUSCULAR VOLUME 83.8 fL (81.0-99.0); MEAN PLATELET VOLUME 7.7 fL (7.9-10.8); RED BLOOD COUNT 3.68 10^6/uL (4.20-5.40); RED CELL DISTRIBUTION WIDTH 15.4 % (12.0-15.0); WHITE BLOOD COUNT 10.2 x10^3/uL (4.8-10.8)
[2016-11-19 06:45] LABS: CALCIUM 8.1 mg/dL (8.5-10.3); CREATININE 0.6 mg/dL (0.4-1.0); POTASSIUM 4.2 mmol/L (3.5-5.0)
[2016-11-19] MEDS: PANTOPRAZOLE 40 MG TABLET PO SCH (07:00)
[2016-11-19] MEDS: MONTELUKAST 10 MG TABLET PO SCH (08:34)
[2016-11-19] MEDS: MORPHINE ER 15 MG TABLET PO SCH ×2 (08:35→21:04)
[2016-11-19] MEDS: ENOXAPARIN 40 MG/0.4 ML SYRINGE SUBQ SCH (08:35)
[2016-11-19] MEDS: VORICONAZOLE 200 MG PO SCH ×2 (08:38→21:05)
[2016-11-19] MEDS: BUDESONIDE 0.5 MG/2 ML NEB INH SCH ×2 (08:47→20:30)
[2016-11-19] MEDS: IPRATROPIUM/ALBUTEROL 3 ML NEB INH SCH ×3 (08:48→20:30)
[2016-11-19] MEDS ORDERED: POLYETHYLENE GLYCOL 3350 17 GM PACKET PO SCH (09:00)
[2016-11-19] MEDS ORDERED: DOCUSATE SODIUM 250 MG CAPSULE PO SCH (09:00)
--- NOTE | 2016-11-19 09:00 | PROVIDER PROGRESS NOTE ---
Subjective - General Admit Date: 11/17/16 Procedure Date: 11/18/16 Post Op Days: 1 Procedure Performed: Left hip intramedullary nail (CPT 79027) - Review of Systems Wound/Incisions: positive: Healing well, Dressing dry and intact (scant blood at incision line, tegaderm remains intact) Drain Type: none General: positive: No symptoms Gastrointestinal: positive: Difficulty swallowing (secondary to chronic reflux symptoms, tried protonix last night) - Other Other Information/Narrative: Patient feeling well, denies chest pain, SOB, N/V. Breathing treatments with RT have been improving lung status. Mild reflux symptoms, requests Tums. Objective - Patient Data Reviewed Vital Signs: Yes Vital Signs: Vital Signs x48h Temp Pulse Resp BP BP Pulse Ox 11/19/16 08:16 36.7 C 74 16 105/63 94 11/19/16 05:00 36.7 C 65 16 100/63 96 11/19/16 01:00 36.8 C 83 16 102/59 L 97 Weight: Weight 11/17/16 11/18/16 11/19/16 23:59 23:59 23:59 Weight (kg) 144 kg Intake & Output: Intake and Output Totals x24h 11/17/16 11/18/16 11/19/16 23:59 23:59 23:59 Intake Total 2354 2484 1227 Output Total 1350 3975 1600 Balance 5747 -9457 -090 - Lab Results Lab Results: 11/19/16 05:39 11/19/16 05:39 Other Lab Results: Lab Results x24hrs 11/19/16 11/19/16 Range/Units 05:39 05:39 WBC 10.2 (4.8-10.8) x10^3/uL RBC 3.68 L (4.20-5.40) 10^6/uL Hgb 10.0 L (12.0-16.0) g/dL Hct 30.9 L (37.0-47.0) % MCV 83.8 (81.0-99.0) fL MCH 27.3 (27.0-31.0) pg MCHC 32.5 (32.0-36.0) g/dL RDW 15.4 H (12.0-15.0) % Plt Count 288 (130-450) 10^3/uL MPV 7.7 L (7.9-10.8) fL Sodium 137 (135-145) mmol/L Potassium 4.2 (3.5-5.0) mmol/L Chloride 103 (101-111) mmol/L Carbon Dioxide 28 (21-32) mmol/L Anion Gap 6.0 (6-13) BUN 13 (6-20) mg/dL Creatinine 0.6 (0.4-1.0) mg/dL Estimated GFR (MDRD) 102 (>89) Glucose 140 H (70-100) mg/dL Calcium 8.1 L (8.5-10.3) mg/dL - Imaging Results Radiology Imaging: positive: Final report received (Reviewed report and postop images, fracture well reduced, hardware in good position) - Current Medications Current Medications: Current Medications Generic Name Dose Route Start Last Admin Trade Name Freq PRN Reason Stop Dose Admin Albuterol/Ipratropium 3 ml 11/17/16 15:30 11/19/16 08:48 Duoneb INH 3 ml RTQ4H ANIRUDH Administration Budesonide 0.5 mg 11/17/16 19:00 11/19/16 08:47 Pulmicort INH 0.5 mg RTBID ANIRUDH Administration Calcium Carbonate/Glycine 500 mg 11/17/16 19:50 11/17/16 21:32 Tums PO 500 mg Q6H PRN Administration Heartburn Docusate Sodium 250 - 500 mg 11/19/16 09:00 11/19/16 08:34 Colace 250mg Capsule PO 250 mg DAILY ANIRUDH Administration Enoxaparin Sodium 40 mg 11/19/16 09:00 11/19/16 08:35 Lovenox SUBQ 40 mg DAILY ANIRUDH Administration Sodium Chloride 1,000 mls @ 100 mls/hr 11/17/16 14:00 11/19/16 01:33 Normal Saline 0.9% IV 100 mls/hr .Q10H ANIRUDH Administration Levothyroxine Sodium 50 mcg 11/18/16 15:00 11/19/16 06:27 Synthroid PO 50 mcg QDAC ANIRUDH Administration Montelukast Sodium 10 mg 11/18/16 12:00 11/19/16 08:34 Singulair PO 10 mg DAILY ANIRUDH Administration Morphine Sulfate 15 mg 11/18/16 12:00 11/19/16 08:35 PO 15 mg BID ANIRUDH Administration Non-Formulary Medication 200 mg 11/17/16 21:00 11/19/16 08:38 Voriconazole [Vfend] PO Not Given BID ANIRUDH Oxycodone HCl 5 mg 11/19/16 04:57 11/19/16 06:27 Roxicodone PO 5 mg Q4HR PRN Administration PAIN Pantoprazole Sodium 40 mg 11/19/16 07:00 11/19/16 07:00 Protonix PO 40 mg QDAC ANIRUDH Administration Sodium Chloride 10 ml 11/17/16 13:47 11/18/16 18:07 Normal Saline Flush 0.9% IVP 10 ml PRN PRN Administration NEEDED PER PROVIDER ORDERS Sodium Chloride 10 ml 11/17/16 14:00 11/19/16 06:28 Normal Saline Flush 0.9% IVP Not Given Q8HR ANIRUDH - Physical Exam Wound/Incisions: positive: Dressing dry and intact (scant bloody drainage just at incisional line, tegaderm intact) General Appearance: positive: No acute distress, Alert Eyes Bilateral: positive: Normal inspection Extremities: positive: Nml appearance (LLE: 5/5 strength TA/GSC/EHL/FHL, palpable DP pulse, sensation intact to LT to sural/saph/dp/sp/tn.). negative: Joint swelling Impression/Plan - Problem List Problem List: 61 yo F with hx of bronchiectasis and intermittent infections/prednisone with a left intertrochanteric hip fracture now POD#1 from left hip IMN, doing well, continuing to improve, pain well controlled - appreciate continued Hospitalist service perioperative management - Dressing change POD#3, ok to change to 4x4/[place] tape if drainage with PT - DVT proph: start lovenox POD#1 and continue for 4 weeks, then transition to ASA 325 mg EC PO daily for 6 weeks, SCDs while inpatient - encourage incentive spirometry at bedside, appreciate continued RT treatments and guidance - 24 hrs IV abx - PWB LLE, 75% body weight x 6 weeks then ok to advance to full - up with PT POD#1, gait training and assistive device eval - appreciate OT eval for home safety needs - Regular diet - Dispo: currently planning to dc to home when pass PT and cleared by Hospitalist, may require SNIF if difficulty with PT Will need F/U 2 weeks postop in Ortho Clinic for wound check and stables out, then at 6 weeks with AP pelvis, 2 views left hip to advance activity
[2016-11-19] MEDS ORDERED: CALCIUM CARBONATE CHEW 500 MG TABLET PO STA (09:06)
[2016-11-19] MEDS ORDERED: BISACODYL 10 MG SUPP PR PRN (10:41)
--- NOTE | 2016-11-19 11:34 | PROVIDER PROGRESS NOTE ---
Subjective - Prog Note Date Prog Note Date: 11/19/16 Prog Note Time: 11:32 - Subjective Pt reports feeling: Improved Subjective: Patient resting in bed, no distress, reports pain controlled currently. She did turn to her right side last night and then had some coughing with exacerbated her left left pain. Otherwise, no nausea or muscle spasms. No BM since 11/16, feels like she "needs to go", got up to commode, requesting suppository - ordered. Up to the commode and having multiple BMs. Current Medications - Current Medications Current Medications: Current Medications Generic Name Dose Route Start Last Admin Trade Name Freq PRN Reason Stop Dose Admin Bisacodyl 10 mg 11/19/16 10:41 11/19/16 10:46 Dulcolax Supp [place] 10 mg DAILY PRN Administration Constipation Budesonide 0.5 mg 11/17/16 19:00 11/19/16 08:47 Pulmicort INH 0.5 mg RTBID ANIRUDH Administration Calcium Carbonate/Glycine 500 mg 11/17/16 19:50 11/17/16 21:32 Tums PO 500 mg Q6H PRN Administration Heartburn Docusate Sodium 250 - 500 mg 11/19/16 09:00 11/19/16 08:34 Colace 250mg Capsule PO 250 mg DAILY ANIRUDH Administration Enoxaparin Sodium 40 mg 11/19/16 09:00 11/19/16 08:35 Lovenox SUBQ 40 mg DAILY ANIRUDH Administration Sodium Chloride 1,000 mls @ 100 mls/hr 11/17/16 14:00 11/19/16 11:15 Normal Saline 0.9% IV 100 mls/hr .Q10H ANIRUDH Administration Levothyroxine Sodium 50 mcg 11/18/16 15:00 11/19/16 06:27 Synthroid PO 50 mcg QDAC ANIRUDH Administration Montelukast Sodium 10 mg 11/18/16 12:00 11/19/16 08:34 Singulair PO 10 mg DAILY ANIRUDH Administration Morphine Sulfate 15 mg 11/18/16 12:00 11/19/16 08:35 PO 15 mg BID ANIRUDH Administration Non-Formulary Medication 200 mg 11/17/16 21:00 11/19/16 08:38 Voriconazole [Vfend] PO Not Given BID ANIRUDH Oxycodone HCl 5 mg 11/19/16 04:57 11/19/16 10:58 Roxicodone PO 5 mg Q4HR PRN Administration PAIN Pantoprazole Sodium 40 mg 11/19/16 07:00 11/19/16 07:00 Protonix PO 40 mg QDAC ANIRUDH Administration Sodium Chloride 10 ml 11/17/16 13:47 11/18/16 18:07 Normal Saline Flush 0.9% IVP 10 ml PRN PRN Administration NEEDED PER PROVIDER ORDERS Sodium Chloride 10 ml 11/17/16 14:00 11/19/16 06:28 Normal Saline Flush 0.9% IVP Not Given Q8HR ANIRUDH Objective - Vital Signs/Intake & Output Reviewed Vital Signs: Yes Vital Signs: Vital Signs x48h Temp Pulse Pulse Resp BP Pulse Ox 11/19/16 09:01 82 20 11/19/16 08:16 36.7 C 74 16 105/63 94 11/19/16 05:00 36.7 C 65 16 100/63 96 Intake & Output: Intake & Output 11/16/16 11/17/16 11/18/16 11/19/16 23:59 23:59 23:59 23:59 Intake Total 2354 2484 1698 Output Total 1350 3975 2250 Balance 7415 -7335 -892 - Objective General Appearance: positive: No acute distress, Alert Eyes Bilateral: positive: Normal inspection ENT: positive: No signs of dehydration Neck: positive: No JVD Respiratory: positive: Chest non-tender, No respiratory distress, Breath sounds nml. negative: Wheezes, Rhonchi Cardiovascular: positive: Regular rate & rhythm, No murmur. negative: Tachycardia Peripheral Pulses: 1+ Dorsalis pedis (R), 1+ Dorsalis pedis (L), 2+ Radial (R), 2+ Radial (L) Abdomen: positive: Non-tender, Nml bowel sounds, No distention, Other (+hernia, reducible) Skin: positive: Color nml, No rash, Warm, Dry, Laceration (cm) (2 surgical incisions on the left lateral thigh with fransico and tegaderm, scant weeping under dressing) Extremities: negative: Pedal edema, Calf tenderness, Joint swelling (left hip soft) Neurologic/Psychiatric: positive: Oriented x3, Motor nml, Sensation nml, Mood/ affect nml - Lab Results Fish Bones: 11/19/16 05:39 11/19/16 05:39 Other Labs: Lab Results x24hrs 11/19/16 11/19/16 Range/Units 05:39 05:39 WBC 10.2 (4.8-10.8) x10^3/uL RBC 3.68 L (4.20-5.40) 10^6/uL Hgb 10.0 L (12.0-16.0) g/dL Hct 30.9 L (37.0-47.0) % MCV 83.8 (81.0-99.0) fL MCH 27.3 (27.0-31.0) pg MCHC 32.5 (32.0-36.0) g/dL RDW 15.4 H (12.0-15.0) % Plt Count 288 (130-450) 10^3/uL MPV 7.7 L (7.9-10.8) fL Sodium 137 (135-145) mmol/L Potassium 4.2 (3.5-5.0) mmol/L Chloride 103 (101-111) mmol/L Carbon Dioxide 28 (21-32) mmol/L Anion Gap 6.0 (6-13) BUN 13 (6-20) mg/dL Creatinine 0.6 (0.4-1.0) mg/dL Estimated GFR (MDRD) 102 (>89) Glucose 140 H (70-100) mg/dL Calcium 8.1 L (8.5-10.3) mg/dL - Diagnostic Imaging Diagnostic Imaging Results: positive: See rad report Assessment/Plan - Problem List (1) Intertrochanteric fracture of left femur Impression: Mechanical ground level fall, fracture identified on imaging, Dr Sanchez ( ortho) consulted and surgical repair on 11/18 with IM swati and screw. No post-op complications. -WBAT -Lovenox for DVT prophylaxis (3weeks postop followed by 3weeks ASA PO) -Calcium + Vit D for osteopenia -Bowel regimen: senna and colace bid scheduled, miralax prn -Acute on chronic pain: controlled with bid morphine 15mg PO and oxycodone 5mg q4h prn breakthrough pain -PT reccs possibly home with home health +PCP to consider DEXA scan and bisphosphonate therapy 2 weeks post-fracture +[place] to be removed 2 weeks post-op Qualifiers: Encounter type: initial encounter Fracture type: closed Qualified Code(s) : S72.142A - Displaced intertrochanteric fracture of left femur, initial encounter for closed fracture (2) Anemia Impression: Expected acute blood loss anemia from trauma, worsened by surgery. EBL 25ml. Baseline Hgb ~12.4, was 11.4 on arrival, now 10.0 POD1. No associated hypotension or tachycardia. Surgical site soft, no hematoma. -IV iron x2 doses -Trend Hgb, transfuse for Hgb <7 Qualifiers: Other causes of anemia: acute posthemorrhagic (3) Bronchiectasis Impression: Chronic, no acute exacerbation. No respiratory distress. Denies SOB. -Duonebs QID -Pulmicort BID -O2 to keep sats >92% -Flutter device to mobilize secretions (4) Chronic pain Impression: Chronic pain complicated by acute LLE pain from fracture, controlled -see plan as outlined in #1 (5) Hypothyroidism Impression: Stable. -Continue synthroid (6) Osteopenia Impression: Per report. -Calcium + Vit D PO
[2016-11-19] MEDS ORDERED: IPRATROPIUM/ALBUTEROL 3 ML NEB INH ONE (13:07)
[2016-11-19] MEDS: CALCIUM CARBONATE CHEW 500 MG TABLET PO SCH ×2 (13:14→21:04)
[2016-11-19] MEDS: CHOLECALCIFEROL 1,000 UNIT TABLET PO SCH (13:16)
[2016-11-19] MEDS ORDERED: LIDOCAINE PATCH 5% TOP PRN (17:45)
[2016-11-19] MEDS: ACETAMINOPHEN 325 MG TABLET PO PRN ×2 (19:23→23:44)
[2016-11-19] MEDS: DOCUSATE SODIUM 250 MG CAPSULE PO SCH (21:04)
[2016-11-20] MEDS: SODIUM CHLORIDE FLUSH 0.9% 10 ML SYRINGE IVP SCH ×3 (04:02→20:19)
[2016-11-20] MEDS: ACETAMINOPHEN 325 MG TABLET PO PRN ×4 (05:33→23:41)
[2016-11-20 05:45] LABS: BASOPHILS # (AUTO) 0.1 10^3/uL (0.0-0.1); EOSINOPHILS # (AUTO) 0.3 10^3/uL (0.0-0.7); EOSINOPHILS % (AUTO) 3.6 %; HCT - HEMATOCRIT 31.2 % (37.0-47.0); HGB - HEMOGLOBIN 10.1 g/dL (12.0-16.0); LYMPHOCYTES # (AUTO) 1.6 10^3/uL (1.5-3.5); LYMPHOCYTES % (AUTO) 20.2 %; MEAN CORPUSCULAR HEMOGLOBIN 27.3 pg (27.0-31.0); MEAN CORPUSCULAR HGB CONC 32.4 g/dL (32.0-36.0); MEAN CORPUSCULAR VOLUME 84.3 fL (81.0-99.0); MEAN PLATELET VOLUME 7.3 fL (7.9-10.8); MONOCYTES # (AUTO) 0.8 10^3/uL (0.0-1.0); MONOCYTES % (AUTO) 10.1 %; NEUTROPHILS # (AUTO) 5.3 10^3/uL (1.5-6.6); NEUTROPHILS % (AUTO) 65.1 %; RED CELL DISTRIBUTION WIDTH 15.5 % (12.0-15.0); UNCORRECTED WHITE BLOOD COUNT 8.1 x10^3/uL; WHITE BLOOD COUNT 8.1 x10^3/uL (4.8-10.8)
[2016-11-20] MEDS: LEVOTHYROXINE 25 MCG TABLET PO SCH (06:00)
[2016-11-20] MEDS: oxyCODONE 5 MG TABLET PO PRN ×2 (06:00→20:21)
[2016-11-20] MEDS: PANTOPRAZOLE 40 MG TABLET PO SCH (06:00)
[2016-11-20] MEDS: SODIUM CHLORIDE 0.9% 1,000 ML IV SCH (06:55)
[2016-11-20] MEDS: IPRATROPIUM/ALBUTEROL 3 ML NEB INH SCH ×4 (07:12→20:32)
[2016-11-20] MEDS: BUDESONIDE 0.5 MG/2 ML NEB INH SCH ×2 (07:15→20:32)
[2016-11-20] MEDS: MONTELUKAST 10 MG TABLET PO SCH (08:20)
[2016-11-20] MEDS: MORPHINE ER 15 MG TABLET PO SCH ×2 (08:20→20:16)
[2016-11-20] MEDS: DOCUSATE SODIUM 250 MG CAPSULE PO SCH ×2 (08:21→20:16)
[2016-11-20] MEDS: CHOLECALCIFEROL 1,000 UNIT TABLET PO SCH (08:21)
[2016-11-20] MEDS: CALCIUM CARBONATE CHEW 500 MG TABLET PO SCH ×3 (08:21→16:10)
[2016-11-20] MEDS: SENNA 8.6 MG TABLET PO SCH (08:21)
[2016-11-20] MEDS: ENOXAPARIN 40 MG/0.4 ML SYRINGE SUBQ SCH (08:21)
[2016-11-20] MEDS: VORICONAZOLE 200 MG PO SCH ×2 (08:25→20:19)
--- NOTE | 2016-11-20 09:48 | PROVIDER PROGRESS NOTE ---
Subjective - General Admit Date: 11/17/16 Procedure Date: 11/18/16 Post Op Days: 2 Procedure Performed: Left hip intramedullary nail (CPT 31876) - Review of Systems Wound/Incisions: positive: Dressing dry and intact, No drainage Drain Type: none General: positive: No symptoms Cardiovascular: positive: No symptoms Gastrointestinal: positive: No symptoms Objective - Patient Data Reviewed Vital Signs: Yes Vital Signs: Vital Signs x48h Temp Pulse Pulse Resp BP Pulse Ox 11/20/16 07:52 36.4 C L 86 18 114/63 92 11/20/16 07:16 86 20 11/20/16 05:00 36.7 C 74 16 121/74 93 Intake & Output: Intake and Output Totals x24h 11/18/16 11/19/16 11/20/16 23:59 23:59 23:59 Intake Total 2484 3634 843 Output Total 3975 3100 1250 Balance -1491 534 -407 - Lab Results Lab Results: 11/20/16 05:29 11/19/16 05:39 Other Lab Results: Lab Results x24hrs 11/20/16 Range/Units 05:29 WBC 8.1 (4.8-10.8) x10^3/uL RBC 3.70 L (4.20-5.40) 10^6/uL Hgb 10.1 L (12.0-16.0) g/dL Hct 31.2 L (37.0-47.0) % MCV 84.3 (81.0-99.0) fL MCH 27.3 (27.0-31.0) pg MCHC 32.4 (32.0-36.0) g/dL RDW 15.5 H (12.0-15.0) % Plt Count 299 (130-450) 10^3/uL MPV 7.3 L (7.9-10.8) fL Neut # 5.3 (1.5-6.6) 10^3/uL Lymph # 1.6 (1.5-3.5) 10^3/uL Coffee # 0.8 (0.0-1.0) 10^3/uL Eos # 0.3 (0.0-0.7) 10^3/uL Baso # 0.1 (0.0-0.1) 10^3/uL Absolute Nucleated RBC 0.00 x10^3/uL Nucleated RBCs 0.0 /100WBC - Current Medications Current Medications: Current Medications Generic Name Dose Route Start Last Admin Trade Name Freq PRN Reason Stop Dose Admin Acetaminophen 650 mg 11/19/16 17:45 11/20/16 05:33 Tylenol PO 650 mg Q4HR PRN Administration Pain or Fever > 38C (100.4F) Albuterol/Ipratropium 3 ml 11/19/16 15:00 11/20/16 07:12 Duoneb INH 3 ml RTQID ANIRUDH Administration Bisacodyl 10 mg 11/19/16 10:41 11/19/16 10:46 Dulcolax Supp [place] 10 mg DAILY PRN Administration Constipation Budesonide 0.5 mg 11/17/16 19:00 11/20/16 07:15 Pulmicort INH 0.5 mg RTBID ANIRUDH Administration Calcium Carbonate/Glycine 1,000 mg 11/19/16 13:00 11/20/16 08:21 Tums PO 1,000 mg BID ANIRUDH Administration Cholecalciferol 2,000 unit 11/19/16 13:00 11/20/16 08:21 Vitamin D3 PO 2,000 unit DAILY ANIRUDH Administration Docusate Sodium 250 mg 11/19/16 21:00 11/20/16 08:21 Colace 250mg Capsule PO 250 mg BID ANIRUDH Administration Enoxaparin Sodium 40 mg 11/19/16 09:00 11/20/16 08:21 Lovenox SUBQ 40 mg DAILY ANIRUDH Administration Sodium Chloride 1,000 mls @ 100 mls/hr 11/17/16 14:00 11/20/16 06:55 Normal Saline 0.9% IV 100 mls/hr .Q10H ANIRUDH Administration Levothyroxine Sodium 50 mcg 11/18/16 15:00 11/20/16 06:00 Synthroid PO 50 mcg QDAC ANIRUDH Administration Montelukast Sodium 10 mg 11/18/16 12:00 11/20/16 08:20 Singulair PO 10 mg DAILY ANIRUDH Administration Morphine Sulfate 15 mg 11/18/16 12:00 11/20/16 08:20 PO 15 mg BID ANIRUDH Administration Non-Formulary Medication 200 mg 11/17/16 21:00 11/20/16 08:25 Voriconazole [Vfend] PO Not Given BID ANIRUDH Oxycodone HCl 5 mg 11/19/16 17:47 11/20/16 06:00 Roxicodone PO 5 mg BID PRN Administration PAIN Pantoprazole Sodium 40 mg 11/19/16 07:00 11/20/16 06:00 Protonix PO 40 mg QDAC ANIRUDH Administration Senna 8.6 mg 11/20/16 09:00 11/20/16 08:21 Senokot PO 8.6 mg DAILY ANIRUDH Administration Sodium Chloride 10 ml 11/17/16 13:47 11/18/16 18:07 Normal Saline Flush 0.9% IVP 10 ml PRN PRN Administration NEEDED PER PROVIDER ORDERS Sodium Chloride 10 ml 11/17/16 14:00 11/20/16 04:02 Normal Saline Flush 0.9% IVP Not Given Q8HR ANIRUDH - Physical Exam Wound/Incisions: positive: Dressing dry and intact, No drainage General Appearance: positive: No acute distress, Alert Eyes Bilateral: positive: Normal inspection Respiratory: positive: No respiratory distress Extremities: positive: Non-tender, Nml appearance (LLE: Dressings C/D/I, 5/5 strength TA/GSC/EHL/FHL, palpable DP pulse. Sensation intact to sural/saph/dp/sp /tn.) Neurologic/Psychiatric: positive: Motor nml, Sensation nml. negative: Weakness , Sensory loss Impression/Plan - Problem List Problem List: 61 yo F with hx of bronchiectasis and intermittent infections/prednisone with a left intertrochanteric hip fracture now POD#2 from left hip IMN, did well with therapy yesterday, felling well - appreciate continued Hospitalist service perioperative management - Dressing change daily - DVT proph: start lovenox POD#1 and continue for 4 weeks, then transition to ASA 325 mg EC PO daily for 6 weeks, SCDs while inpatient - encourage incentive spirometry at bedside, appreciate continued RT treatments and guidance - 24 hrs IV abx complete - [place] out - PWB LLE, 75% body weight x 6 weeks then ok to advance to full - up with PT gait training and assistive device eval, home PT guidance - OT eval for home safety needs - Regular diet (please see Hospitalist for guidance) - Dispo: PT notes encouraging for possible dc to home when pass PT and cleared by Hospitalist, Will need F/U 2 weeks postop in Ortho Clinic for wound check and stables out, then at 6 weeks with AP pelvis, 2 views left hip to advance activity
--- NOTE | 2016-11-20 10:42 | Discharge Plan ---
Discharge Plan Disposition: Home, Self Care Condition: Stable Prescriptions: Calcium Carbonate/Vitamin D3 [Calcium 600 + Vit D 400 Tablet] 1 each PO BIDAC # 60 tablet Docusate Sodium 250Mg Capsule [Colace 250Mg Capsule] 250 mg PO BID #60 capsule Aspirin EC [Ecotrin] 325 mg PO DAILY 14 Days Lidocaine Patch 5% [Lidoderm Patch] 1 patch TOP DAILY PRN #14 patch PRN Reason: Pain Enoxaparin [Lovenox] 40 mg SUBQ DAILY #26 syringe Polyethylene Glycol 3350 [Miralax] 17 gm PO DAILY PRN #30 packet PRN Reason: Bowel Protocol Diet: Regular Activity Restrictions: Activity as Tolerated Shower Restrictions: (use shower chair as needed) Driving Restrictions: No (no driving till cleared by orthopedic MD) Assistance Devices: Walker Weight Bearing: Partial Weight (PWB LLE, 75% body weight x 6 weeks then ok to advance to full) Additional Instructions or Follow Up instructions: You fell and broke your left hip (the femur bone). This was repaired in surgery by Dr Sanchez, orthopedic surgeon with a swati and screw. You have had no complications. The two incisions are closed with fransico, these will be removed in t2 weeks at your post-op ortho appointment. Until then keep clean and dry. You are allowed to be partial weight bearing on the left leg (up top 75% of weight) Surgery and decreased mobility increase risk for blood clots in the legs. You will continue lovenox daily for a total of 4 weeks. On week 5 change to aspirin 325mg by mouth daily for 2 more weeks. (a total of weeks of therapy combined). You will be followed by Home Health for PT and OT to work of safety with transfer and walking. Continue your respiratory treatments at home, follow-up with your paper machine backtender as previously scheduled. Will need F/U 2 weeks postop in Ortho Clinic for wound check and get fransico out , then at 6 weeks for x-rays of left hip and to advance activity Follow-Up Care: Home Health - PT, Home Health - OT No Smoking: If you smoke, Please STOP! Call for help. Follow-up with: Krysten Sellers DO [Primary Care Provider] - (for medical issues)
[2016-11-20] MEDS ORDERED: SODIUM CHLORIDE 0.9% 500 ML IV ONE (11:03)
--- NOTE | 2016-11-20 14:29 | PROVIDER PROGRESS NOTE ---
Subjective - Prog Note Date Prog Note Date: 11/20/16 Prog Note Time: 14:26 - Subjective Subjective: Patient is emotional, tearful. She states " I just don't feel ready". She was hoping to DC home, but had some dizziness and anxiety with PT, difficulty transferring and ambulating, doesn't feel safe to go home. Pain is controlled with current regimen. I discussed the voriconazole and opioid interaction and that we would not be increasing her home opioids at discharge. We can use ice and adjunct therapies to augment pain. Breathing is slight worse with exertion, O2 sat down to 89% and had to use O2 for a while till recovered. 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 No fever/chills. Using her flutter valve. Current Medications - Current Medications Current Medications: Active Medications Acetaminophen (Tylenol) 650 mg PO Q4HR PRN PRN Reason: Pain or Fever > 38C (100.4F) Last Admin: 11/20/16 14:27 Dose: 650 mg Albuterol/Ipratropium (Duoneb) 3 ml INH RTQID [facility] Last Admin: 11/20/16 11:46 Dose: 3 ml Bisacodyl (Dulcolax Supp) 10 mg LA DAILY PRN PRN Reason: Constipation Last Admin: 11/19/16 10:46 Dose: 10 mg Budesonide (Pulmicort) 0.5 mg INH RTBID [facility] Last Admin: 11/20/16 07:15 Dose: 0.5 mg Calcium Carbonate/Glycine (Tums) 500 mg PO TIDWM [facility] Last Admin: 11/20/16 12:36 Dose: Not Given Cholecalciferol (Vitamin D3) 2,000 unit PO DAILY [facility] Last Admin: 11/20/16 08:21 Dose: 2,000 unit Dicyclomine HCl (Bentyl) 10 mg PO BID PRN PRN Reason: Abdominal Pain Docusate Sodium (Colace 250mg Capsule) 250 mg PO BID [facility] Last Admin: 11/20/16 08:21 Dose: 250 mg Enoxaparin Sodium (Lovenox) 40 mg SUBQ DAILY [facility] Last Admin: 11/20/16 08:21 Dose: 40 mg Levothyroxine Sodium (Synthroid) 50 mcg PO QDAC [facility] Last Admin: 11/20/16 06:00 Dose: 50 mcg Lidocaine (Lidoderm Patch) 1 patch TOP DAILY PRN PRN Reason: PAIN Montelukast Sodium (Singulair) 10 mg PO DAILY [facility] Last Admin: 11/20/16 08:20 Dose: 10 mg Morphine Sulfate () 15 mg PO BID [facility] Last Admin: 11/20/16 08:20 Dose: 15 mg Non-Formulary Medication (Voriconazole [Vfend]) 200 mg PO BID [facility] Last Admin: 11/20/16 08:25 Dose: Not Given Ondansetron HCl (Zofran Inj) 4 mg IVP Q6HR PRN PRN Reason: Nausea / Vomiting Oxycodone HCl (Roxicodone) 5 mg PO BID PRN PRN Reason: PAIN Last Admin: 11/20/16 06:00 Dose: 5 mg Pantoprazole Sodium (Protonix) 40 mg PO QDAC [facility] Last Admin: 11/20/16 06:00 Dose: 40 mg Polyethylene Glycol (Miralax) 17 gm PO DAILY PRN PRN Reason: Bowel Protocol Prochlorperazine Edisylate (Compazine Inj) 10 mg IVP Q6HR PRN PRN Reason: Nausea / Vomiting Senna (Senokot) 8.6 mg PO DAILY [facility] Last Admin: 11/20/16 08:21 Dose: 8.6 mg Sodium Chloride (Normal Saline Flush 0.9%) 10 ml IVP PRN PRN PRN Reason: NEEDED PER PROVIDER ORDERS Last Admin: 11/18/16 18:07 Dose: 10 ml Sodium Chloride (Normal Saline Flush 0.9%) 10 ml IVP Q8HR [facility] Last Admin: 11/20/16 14:10 Dose: 10 ml Ciclesonide [Omnaris] 1 sprays HENRY BID 12/12/12 Meloxicam [Mobic] 15 mg PO DAILY 12/12/12 Montelukast Sodium [Singulair] 10 mg PO DAILY 12/12/12 Ipratropium/Albuterol [Duoneb] 1 amp INH QID PRN 10/27/13 Albuterol Sulf [Ventolin Hfa Inhaler] 2 puffs INH Q4H PRN 11/17/16 Alendronate [Fosamax] 70 mg PO Q7D 11/17/16 Dicyclomine [Bentyl] 10 mg PO BID PRN 11/17/16 Esomeprazole Magnesium [Nexium] 40 mg PO QDAC 11/17/16 Fluticasone 220 Mcg [Flovent] 2 puffs INH BID 11/17/16 Levocetirizine Dihydrochloride [Xyzal] 5 mg DAILY 11/17/16 Levothyroxine Sodium [Synthroid] 50 mcg PO QDAC 11/17/16 Loratadine [Claritin] 10 mg PO DAILY 11/17/16 Morphine Sulfate [Ms Contin] 15 mg PO BID 11/17/16 oxyCODONE [Roxicodone] 5 mg PO BID PRN 11/17/16 Objective - Vital Signs/Intake & Output Reviewed Vital Signs: Yes Vital Signs: Vital Signs x48h Temp Pulse Pulse Resp BP Pulse Ox 11/20/16 13:00 36.6 C 120 H 16 99/65 93 11/20/16 11:30 88 22 11/20/16 07:52 36.4 C L 86 18 114/63 92 11/20/16 07:16 86 20 Intake & Output: Intake & Output 11/17/16 11/18/16 11/19/16 11/20/16 23:59 23:59 23:59 23:59 Intake Total 2354 2484 3634 2344 Output Total 1350 3975 3100 2650 Balance 1004 -1491 534 -306 - Objective General Appearance: positive: No acute distress, Alert Eyes Bilateral: positive: Normal inspection, PERRL ENT: positive: No signs of dehydration Neck: positive: No JVD Respiratory: positive: Chest non-tender, No respiratory distress, Rhonchi ( coarse diffusely) Cardiovascular: positive: Regular rate & rhythm, No murmur. negative: Tachycardia Peripheral Pulses: 2+ Radial (R), 2+ Radial (L), 2+ Dorsalis pedis (R), 2+ Dorsalis pedis (L) Abdomen: positive: Non-tender, Nml bowel sounds, No distention Skin: positive: Color nml, Warm, Dry, Laceration (cm) (surgical incisions CDI with fransico and tegaderm). negative: Skin rash Extremities: positive: Other (Left thigh tender to touch, mild knee swelling, tenderness in the upper tibia (just below the knee)). negative: Pedal edema, Calf tenderness Neurologic/Psychiatric: positive: Oriented x3, Motor nml, Sensation nml, Mood/ affect nml - Lab Results Fish Bones: 11/20/16 05:29 11/19/16 05:39 Other Labs: Lab Results x24hrs 11/20/16 Range/Units 05:29 WBC 8.1 (4.8-10.8) x10^3/uL RBC 3.70 L (4.20-5.40) 10^6/uL Hgb 10.1 L (12.0-16.0) g/dL Hct 31.2 L (37.0-47.0) % MCV 84.3 (81.0-99.0) fL MCH 27.3 (27.0-31.0) pg MCHC 32.4 (32.0-36.0) g/dL RDW 15.5 H (12.0-15.0) % Plt Count 299 (130-450) 10^3/uL MPV 7.3 L (7.9-10.8) fL Neut # 5.3 (1.5-6.6) 10^3/uL Lymph # 1.6 (1.5-3.5) 10^3/uL [place] # 0.8 (0.0-1.0) 10^3/uL Eos # 0.3 (0.0-0.7) 10^3/uL Baso # 0.1 (0.0-0.1) 10^3/uL Absolute Nucleated RBC 0.00 x10^3/uL Nucleated RBCs 0.0 /100WBC Assessment/Plan - Problem List (1) Intertrochanteric fracture of left femur Impression: Mechanical ground level fall, fracture identified on imaging, Dr Sanchez ( ortho) consulted and surgical repair on 11/18 with IM nail. No post-op complications. -75%WB on the LLE x6 weeks -Lovenox for DVT prophylaxis (b7oopip postop followed by 2weeks ASA PO) -Calcium + Vit D for osteopenia -Resume aldendronate at discharge -Bowel regimen: senna and colace bid scheduled, miralax prn -Acute on chronic pain: controlled with bid morphine 15mg PO and oxycodone 5mg BID prn breakthrough pain -PT dailily, Home with HH or SNF tomorrow based on progress +Fransico to be removed 2 weeks post-op (2) Anemia Impression: Expected acute blood loss anemia from trauma, worsened by surgery. EBL 25ml. Baseline Hgb ~12.4, was 11.4 on arrival, 10.0 POD1, 10.1 POD2. NO tachycardia, mild orthostatic symptoms dizziness/slight drop in BP. Surgical site soft, no hematoma. -NS 500ml bolus x1, then DC IVF -Trend Hgb, transfuse for Hgb <7 (3) Bronchiectasis Impression: Chronic, no acute exacerbation. No respiratory distress. Denies SOB. -Duonebs QID -Pulmicort BID -O2 to keep sats >92% -Flutter device to mobilize secretions (4) Chronic pain Impression: Chronic pain complicated by acute LLE pain from fracture, controlled -see plan as outlined in #1 (5) Hypothyroidism Impression: Stable. -Continue synthroid (6) Osteopenia Impression: Per report. -Calcium + Vit D PO DVT Prophylaxis: Lovenox DC Plan: PT to re-eval tomorrow, then likely to SNF unless great improvement Qualifiers: Encounter type: initial encounter Fracture type: closed Qualified Code(s) : S72.142A - Displaced intertrochanteric fracture of left femur, initial encounter for closed fracture (2) Anemia Qualifiers: Other causes of anemia: acute posthemorrhagic
[2016-11-20 15:30] LABS: IRON 32 ug/dL (28-170); TOTAL IRON BINDING CAPACITY 242 ug/dL (250-450); TRANSFERRIN 173 mg/dL (192-382)
[2016-11-21] MEDS: oxyCODONE 5 MG TABLET PO PRN ×3 (04:37→11:30)
[2016-11-21] MEDS: ACETAMINOPHEN 325 MG TABLET PO PRN ×2 (06:27→11:30)
[2016-11-21] MEDS: SODIUM CHLORIDE FLUSH 0.9% 10 ML SYRINGE IVP SCH (06:27)
[2016-11-21] MEDS: PANTOPRAZOLE 40 MG TABLET PO SCH (06:28)
[2016-11-21] MEDS: IPRATROPIUM/ALBUTEROL 3 ML NEB INH SCH ×2 (07:20→11:00)
[2016-11-21] MEDS: BUDESONIDE 0.5 MG/2 ML NEB INH SCH (07:20)
[2016-11-21] MEDS ORDERED: FERROUS SULFATE 325 MG TABLET PO SCH (08:00)
[2016-11-21] MEDS: CHOLECALCIFEROL 1,000 UNIT TABLET PO SCH (08:13)
[2016-11-21] MEDS: LEVOTHYROXINE 25 MCG TABLET PO SCH (08:14)
[2016-11-21] MEDS: MONTELUKAST 10 MG TABLET PO SCH (08:14)
[2016-11-21] MEDS: CALCIUM CARBONATE CHEW 500 MG TABLET PO SCH (08:15)
[2016-11-21] MEDS: MORPHINE ER 15 MG TABLET PO SCH (08:15)
[2016-11-21] MEDS: SENNA 8.6 MG TABLET PO SCH (08:15)
[2016-11-21] MEDS: DOCUSATE SODIUM 250 MG CAPSULE PO SCH (08:15)
[2016-11-21] MEDS: ENOXAPARIN 40 MG/0.4 ML SYRINGE SUBQ SCH (08:17)
--- NOTE | 2016-11-21 08:47 | PROVIDER PROGRESS NOTE ---
Subjective - General Admit Date: 11/17/16 Procedure Date: 11/18/16 Post Op Days: 3 Procedure Performed: Left hip intramedullary nail (CPT 98918) - Review of Systems Wound/Incisions: positive: Healing well, Dressing dry and intact, No drainage. negative: Drainage, Erythema Drain Type: none General: positive: No symptoms Cardiovascular: positive: No symptoms Gastrointestinal: positive: No symptoms - Other Other Information/Narrative: Patient notes pain is improving but she is anxious about therapy and her ability to function safely at home. She has been able to mobilize to the commode and has had a BM. She is tolerating her diet, denies CP/SOB/N/V/ headaches/lightheadedness/dizziness Objective - Patient Data Reviewed Vital Signs: Yes Vital Signs: Vital Signs x48h Temp Pulse Pulse Resp BP Pulse Ox 11/21/16 07:34 36.6 C 64 16 92/59 L 94 11/21/16 07:20 92 16 11/21/16 04:56 36.7 C 93 20 118/80 93 Intake & Output: Intake and Output Totals x24h 11/19/16 11/20/16 11/21/16 23:59 23:59 23:59 Intake Total 3634 2614 500 Output Total 3100 4150 850 Balance 289 -7296 -350 - Lab Results Lab Results: 11/20/16 05:29 11/19/16 05:39 Other Lab Results: Lab Results x24hrs 11/20/16 Range/Units 05:29 Iron 32 (28-170) ug/dL TIBC 242 L (250-450) ug/dL % Saturation 13 L (20-50) % Transferrin 173 L (192-382) mg/dL - Current Medications Current Medications: Current Medications Generic Name Dose Route Start Last Admin Trade Name Freq PRN Reason Stop Dose Admin Acetaminophen 650 mg 11/19/16 17:45 11/21/16 06:27 Tylenol PO 650 mg Q4HR PRN Administration Pain or Fever > 38C (100.4F) Albuterol/Ipratropium 3 ml 11/19/16 15:00 11/21/16 07:20 Duoneb INH 3 ml RTQID ANIRUD[facility] Administration Bisacodyl 10 mg 11/19/16 10:41 11/19/16 10:46 Dulcolax Supp HI 10 mg DAILY PRN Administration Constipation Budesonide 0.5 mg 11/17/16 19:00 11/21/16 07:20 Pulmicort INH 0.5 mg RTBID [facility] Administration Calcium Carbonate/Glycine 500 mg 11/20/16 12:00 11/20/16 16:10 Tums PO 500 mg TIDWM AN[facility] Administration Cholecalciferol 2,000 unit 11/19/16 13:00 11/21/16 08:13 Vitamin D3 PO 2,000 unit DAILY [facility] Administration Docusate Sodium 250 mg 11/19/16 21:00 11/21/16 08:15 Colace 250mg Capsule PO 250 mg BID [facility] Administration Enoxaparin Sodium 40 mg 11/19/16 09:00 11/21/16 08:17 Lovenox SUBQ 40 mg DAILY [facility] Administration Ferrous Sulfate 325 mg 11/21/16 08:00 11/21/16 08:16 Feosol PO 325 mg BIDWM [facility] Administration Levothyroxine Sodium 50 mcg 11/18/16 15:00 11/21/16 08:14 Synthroid PO 50 mcg QDAC [facility] Administration Lidocaine 1 patch 11/19/16 17:45 11/20/16 20:16 Lidoderm Patch TOP 1 patch DAILY PRN Administration PAIN Montelukast Sodium 10 mg 11/18/16 12:00 11/21/16 08:14 Singulair PO 10 mg DAILY [facility] Administration Morphine Sulfate 15 mg 11/18/16 12:00 11/21/16 08:15 PO 15 mg BID [facility] Administration Non-Formulary Medication 200 mg 11/17/16 21:00 11/20/16 20:19 Voriconazole [Vfend] PO Not Given BID [facility] Oxycodone HCl 5 mg 11/19/16 17:47 11/21/16 08:15 Roxicodone PO 5 mg BID PRN Administration PAIN Pantoprazole Sodium 40 mg 11/19/16 07:00 11/21/16 06:28 Protonix PO 40 mg QDAC [facility] Administration Senna 8.6 mg 11/20/16 09:00 11/21/16 08:15 Senokot PO 8.6 mg DAILY [facility] Administration Sodium Chloride 10 ml 11/17/16 13:47 11/18/16 18:07 Normal Saline Flush 0.9% IVP 10 ml PRN PRN Administration NEEDED PER PROVIDER ORDERS Sodium Chloride 10 ml 11/17/16 14:00 11/21/16 06:27 Normal Saline Flush 0.9% IVP 10 ml Q8HR [facility] Administration - Physical Exam Wound/Incisions: positive: Healing well, Dressing dry and intact. negative: Drainage (Incisions are all healing well.), Erythema General Appearance: positive: No acute distress, Alert Eyes Bilateral: positive: Normal inspection Respiratory: positive: No respiratory distress Extremities: positive: Non-tender, Nml appearance, No pedal edema Neurologic/Psychiatric: positive: Motor nml, Sensation nml Impression/Plan - Problem List Problem List: 61 yo F with hx of bronchiectasis and intermittent infections/prednisone with a left intertrochanteric hip fracture now POD#3 from left hip IMN, some anxiety about the home transition and demands, pain improving. - appreciate continued Hospitalist service perioperative management - Dressing change daily - DVT proph: start lovenox POD#1 and continue for 4 weeks, then transition to ASA 325 mg EC PO daily for 6 weeks, SCDs while inpatient - encourage incentive spirometry at bedside, appreciate continued RT treatments and guidance - 24 hrs IV abx complete - PWB LLE, 75% body weight x 6 weeks then ok to advance to full - up with PT gait training, appreciate SN[facility] PT guidance - OT eval for home safety needs - Regular diet (please see Hospitalist for guidance) - Dispo: PT notes encouraging but patient concerns for home function lean toward planning dc to SNIF when cleared by PT and cleared by Hospitalist, Will need F/U 2 weeks postop in Ortho Clinic for wound check and stables out, then at 6 weeks with AP pelvis, 2 views left hip to advance activity
[2016-11-21] MEDS: VORICONAZOLE 200 MG PO SCH (09:50)
[2016-11-21 11:28] VITALS: BP 102/63
--- NOTE | 2016-11-23 07:19 | DISCHARGE SUMMARY ---
DATE OF ADMISSION: 11/17/2016 DATE OF DISCHARGE: 11/21/2016 ADMITTING PROVIDER: FAHAD Gibson DISCHARGING PROVIDER: FAHAD Esparza INPATIENT CONSULTATIONS: Rob Sanchez MD, Orthopedic Surgery. PRIMARY CARE PHYSICIAN: Orlando Meyer MD DISCHARGE DIAGNOSES 1. Left femur fracture status post surgical repair with intramedullary nail. 2. Bronchiectasis. 3. Asthma. 4. Gastroesophageal reflux disease. 5. Iron deficiency anemia. 6. Acute blood loss anemia. 7. Hypothyroidism. DISCHARGE MEDICATION LIST 1. Tylenol 650 mg by mouth 3 times a day with meals for 2 weeks, then every 6 hours as needed for pain. 2. Albuterol 2 puffs inhaled every 4 hours as needed for shortness of breath or wheezing. 3. Bentyl 10 mg by mouth twice a day as needed for abdominal cramping. 4. Fosamax 70 mg by mouth weekly. 5. Flovent 220 mcg 2 puffs inhaled twice a day. 6. Nexium 40 mg by mouth daily. 7. Synthroid 50 mcg by mouth daily. 8. Claritin 10 mg by mouth daily. 9. Omnaris 1 spray nasally twice a day. 10. Voriconazole 200 mg by mouth twice a day. 11. Singulair 10 mg by mouth daily. 12. Oxycodone 5 mg by mouth twice a day as needed for breakthrough pain. 13. MS Contin 15 mg by mouth twice a day scheduled. 14. Xyzal 5 mg by mouth daily. 15. DuoNeb 3 mL nebulized 4 times a day. 16. Albuterol 3 mL nebulized every 4 hours as needed for shortness of breath or wheezing. 17. MiraLax 17 grams by mouth daily. 18. Lidoderm patch 1-2 patches apply daily at 8 a.m. to the left thigh; remove at 9 p.m. 19. Lovenox 40 mg subcutaneous daily for 25 days, last dose on 12/16/2016; to be followed by aspirin 325 by mouth daily for 2 additional weeks for DVT prophylaxis. 20. Colace 250 mg by mouth twice a day. 21. Calcium citrate plus vitamin D 600 mg/400 international units by mouth twice a day. 22. Dulcolax suppository 10 mg per rectum daily as needed for no bowel movement in greater than 48 hours. FOLLOWUP 1. CBC on 11/25/2016 for anemia. 2. Follow up with Orthopedic Surgery in 6 weeks for x-ray and advancement of weightbearing status. 3. Remove fransico 2 weeks postoperatively on 12/02/2016. HOSPITAL COURSE 1. Left femur fracture. Patient with known osteoporosis on Fosamax suffered a mechanical ground-level fall, fracture was identified on imaging, and Dr. Sanchez was consulted and performed surgical repair on 11/18/2016 with IM nail ; she had no postoperative complications. She had expected acute blood loss anemia that was mild with a hemoglobin of 12.4 at baseline, 11.4 on arrival, postoperative day #2 at 10.1. She was not symptomatic, no tachycardia, and no orthostatic symptoms. Post-surgical wound care was uncomplicated, 2 surgical incisions closed with fransico, no drainage. No hematoma, and the thigh remained soft. No distal pain, numbness, or tingling. Patient is 75% weightbearing on the left lower extremity for 6 weeks, at which time she will follow up with Orthopedic Surgery and weightbearing status will be advanced if there is evidence of bone remodeling. She will continue on 4 weeks of Lovenox for DVT prophylaxis, followed by 2 weeks of oral aspirin. She should continue calcium and vitamin D for her osteoporosis, and per Dr. Sanchez, is okay to resume her Fosamax at discharge. She had acute-on- chronic pain due to the fracture, she was continued on b.i.d. extended release morphine, and initially on oxycodone q.4 hours as needed but developed somnolence, and this was reduced back to her home dose of 5 mg twice a day as needed. A review of her medications elicited a medication interaction with voriconazole and opioid pain medication, her voriconazole can increase the adverse effects of her opiates, this was reviewed with the patient, and explained that we will not increase any of her narcotic pain medications. In addition, Tylenol and Lidoderm patch will be used, she was encouraged to use non-pharmacological therapy such as massage and ice. Physical Therapy evaluated the patient; she initially was very determined to return home, but with increased pain, limited mobility, ultimately it was decided to be safe is to discharge to SNF for a short period of time until her ambulatory status could be improved. Patient was transferred to [facility] on 11/21/2016. 2. Bronchiectasis. Preoperatively, the patient had very coarse breath sounds, no significant shortness of breath or distress. She was optimized with q.4- hour DuoNeb and Pulmicort twice a day prior to surgery; postoperatively had no acute exacerbation or distress, using oxygen as needed for O2 saturations less than 92, which she has at home. She can follow up with her primary menswear salesperson, Dr. Bang Quintanilla, after discharge from SNF. 3. Hypothyroidism, this is chronic, stable; she was continued on Synthroid. 4. GERD. Patient asymptomatic while in the hospital; continued on PPI and will continue at discharge. RADIOLOGY 11/17/2016 Hip x-ray: Comminuted displaced left intertrochanteric hip fracture. Status post surgical lumbar fusion. Chest x-ray impression: Chronic interstitial infiltrates appear stable. Right mid lung nodular density similar to slightly increased. Apparent new left- sided nodular density could represent a healed or healing rib fracture, but pulmonary nodule not excluded. Femur x-ray impression: No acute abnormality in the distal femur. Degenerative knee disease. Very small knee effusion. 11/18/2016 Expected postoperative appearance of the left hip fracture. LABORATORY CBC: WBC 11.8 on admission, 8.1 at discharge; hemoglobin 11.4 on admission, 10.1 at discharge; platelet count 229. COAG: Unremarkable. CHEMISTRY: Unremarkable. Iron 32, TIBC 242, percent saturation 13, transferrin 173, alk phos 200. Time spent on discharge greater than 30 minutes. JOB #: [id number] EXT JOB #:[id number] [facility] CAMPUSMatty
--- NOTE | 2016-12-08 14:29 | XRAY Report ---
[facility]: Fluoroscopy time only, no images submitted for interpretation. Fluoroscopy time 0 minutes, 20 seconds. [employer]JIT
== END 2016-11-21 11:45 | DRG 481 ==
LOC: EDUNIT# → ED 11:06 → MS 13:47
PROVIDERS: ADMIT Nurse Practitioner; ATTEND Nurse Practitioner Acute Care
PROC: 30233N1 Transfusion of Nonautologous Red Blood Cells into Peripheral Vein, Percutaneous Approach (ICD-10-PCS; 2016-11-18)
PROC: 0QS736Z Reposition Left Upper Femur with Intramedullary Internal Fixation Device, Percutaneous Approach (ICD-10-PCS; principal; 2016-11-18 07:30)
DX: S72.142A Displaced intertrochanteric fracture of left femur, initial encounter for closed fracture (principal); W01.0XXA Fall on same level from slipping, tripping and stumbling without subsequent striking against object, initial encounter; D62 Acute posthemorrhagic anemia; W17.89XA Other fall from one level to another, initial encounter; K43.9 Ventral hernia without obstruction or gangrene; K46.9 Unspecified abdominal hernia without obstruction or gangrene; K45.8 Other specified abdominal hernia without obstruction or gangrene; Y92.007 Garden or yard of unspecified non-institutional (private) residence as the place of occurrence of the external cause; Z87.01 Personal history of pneumonia (recurrent); J47.9 Bronchiectasis, uncomplicated; J45.909 Unspecified asthma, uncomplicated; M85.80 Other specified disorders of bone density and structure, unspecified site; M54.9 Dorsalgia, unspecified; Z99.81 Dependence on supplemental oxygen; Z79.1 Long term (current) use of non-steroidal anti-inflammatories (NSAID); K21.9 Gastro-esophageal reflux disease without esophagitis; D50.9 Iron deficiency anemia, unspecified; E03.9 Hypothyroidism, unspecified; G89.29 Other chronic pain; M81.0 Age-related osteoporosis without current pathological fracture; K59.03 Drug induced constipation; T40.2X5A Adverse effect of other opioids, initial encounter; Z79.891 Long term (current) use of opiate analgesic; Z79.899 Other long term (current) drug therapy; Z98.1 Arthrodesis status
CPT/HCPCS: 36415; 51702; 71010; 80048; 80053; 83540; 83690; 84466; 84484; 85025; 85610; 86850; 86900; 86901; 93005; 94640; 96374; 96375; 99284; 99285

== ENCOUNTER 2016-11-25 17:50 | Outpatient (CLI) | payer MEDICARE, OTHER ==
[2016-11-26 08:14] LABS: BASOPHILS % (AUTO) 0.2 %; EOSINOPHILS % (AUTO) 0.2 %; HCT - HEMATOCRIT 33.9 % (37.0-47.0); HGB - HEMOGLOBIN 11.1 g/dL (12.0-16.0); LYMPHOCYTES # (AUTO) 0.6 10^3/uL (1.5-3.5); LYMPHOCYTES % (AUTO) 6.2 %; MEAN CORPUSCULAR HEMOGLOBIN 27.1 pg (27.0-31.0); MEAN CORPUSCULAR HGB CONC 32.8 g/dL (32.0-36.0); MEAN CORPUSCULAR VOLUME 82.6 fL (81.0-99.0); MEAN PLATELET VOLUME 8.1 fL (7.9-10.8); MONOCYTES # (AUTO) 0.3 10^3/uL (0.0-1.0); MONOCYTES % (AUTO) 3.1 %; NEUTROPHILS # (AUTO) 9.4 10^3/uL (1.5-6.6); NEUTROPHILS % (AUTO) 90.3 %; RED CELL DISTRIBUTION WIDTH 14.9 % (12.0-15.0); UNCORRECTED WHITE BLOOD COUNT 10.4 x10^3/uL; WHITE BLOOD COUNT 10.4 x10^3/uL (4.8-10.8)
== END 2016-11-25 23:59 | disposition home or self-care (01) ==
LOC: LAB.R 17:50
DX: D50.9 Iron deficiency anemia, unspecified (principal)
CPT/HCPCS: 85025

== ENCOUNTER 2017-02-03 12:37 | Outpatient (CLI) | payer MEDICARE, OTHER ==
[2017-02-03 12:49] LABS: CREATININE 0.7 mg/dL (0.4-1.0)
[2017-02-03] MEDS ORDERED: IOPAMIDOL-300 100 ML VIAL ONE (13:35)
[2017-02-03] MEDS ORDERED: IOPAMIDOL-300 100 ML VIAL IVP ONE (14:14)
--- NOTE | 2017-02-03 15:41 | CT Report ---
CT OF THE CHEST WITH CONTRAST: 02/03/2017 CLINICAL INDICATION: Pulmonary nodule, ABPA, bronchiectasis. COMPARISON: 05/30/2015. TECHNIQUE: Axial CT images of the chest were obtained with 80 mL of Isovue-300 intravenously. FINDINGS: There has been interval decrease in mediastinal adenopathy, with the index AP window node now measuring 1.7 x 1.6 cm (previously 2.5 x 1.6 cm). Atherosclerotic calcifications are stable. Ther e has been interval progression of lower lobe bronchiectasis and tree-in-bud parenchymal abnormalitie s. Right lower lobe pulmonary nodule now measures 2.4 cm (previously 1.8 cm). Basilar parenchymal con solidation appears stable. No effusion or pneumothorax is present. The osseous structures demonstrate postsurgical changes. Limited evaluation of upper abdominal structures demonstrates normal adrenal g lands. Midline hernia is again noted. IMPRESSION: CONTINUED INCREASE IN BRONCHIECTASIS AND PARENCHYMAL ABNORMALITIES, PREDOMINANTLY IN THE LOWER LOBES. INCREASE IN SIZE OF RIGHT LOWER LOBE PULMONARY NODULE. INTERVAL DECREASE IN MEDIASTINAL ADENOPATHY. In accordance with CT protocol optimization, one or more of the following dose reduction techniques w ere utilized for this exam: automated exposure control, adjustment of mA and/or KV based on patient size, or use of iterative reconstructive technique. JOB #: [id number] EXT JOB #:[id number]
== END 2017-02-03 12:38 | disposition home or self-care (01) ==
LOC: LAB 12:37
PROVIDERS: ATTEND Family Medicine
DX: R91.1 Solitary pulmonary nodule (principal); J47.9 Bronchiectasis, uncomplicated; R59.0 Localized enlarged lymph nodes
CPT/HCPCS: 36415; 71260; 82565; Q9967

== ENCOUNTER 2017-03-13 12:25 | Outpatient (CLI) | payer MEDICARE, OTHER ==
--- NOTE | 2017-03-15 12:15 | XRAY Report ---
THREE-VIEW LEFT KNEE: 03/13/2017 COMPARISON: No comparisons. INDICATION: Left knee pain. TECHNIQUE: Three views of the left knee. FINDINGS: There are tricompartmental moderate degenerative changes of the knee with mild femorotibia l joint space narrowing. There are calcifications of the meniscus. No effusion. Anatomic alignment. No acute bone findings. IMPRESSION: MODERATE TRICOMPARTMENTAL OSTEOARTHRITIS. JOB #: [id number] EXT JOB #:[id number]
== END 2017-03-13 12:26 | disposition home or self-care (01) ==
LOC: DI 12:25
PROVIDERS: ATTEND Family Medicine
DX: M17.12 Unilateral primary osteoarthritis, left knee (principal)

== ENCOUNTER 2017-04-08 08:47 | Outpatient (CLI) | payer MEDICARE, OTHER ==
--- NOTE | 2017-04-08 16:11 | CT Report ---
EXAM: CT CHEST EXAM DATE: 04/08/2017 09:00 a.m. CLINICAL HISTORY: Bronchiectasis, chronic. COMPARISONS: Chest CT 02/03/2017. TECHNIQUE: Routine helical CT imaging was performed through the chest. IV contrast: None. Reconstruct ions: Coronal and sagittal. In accordance with CT protocol optimization, one or more of the following dose reduction techniques w ere utilized for this exam: automated exposure control, adjustment of mA and/or KV based on patient s ize, or use of iterative reconstructive technique. FINDINGS: Lungs/Pleura: Bilateral lower lobe bronchial wall thickening with areas of mucous plugging. Right low er lobe bronchiectasis. Extensive tree-in-bud nodular infiltrates within right greater than left lowe r lobes and also within the lingula, right middle and posterior right upper lobe. Calcified anterior right upper lobe granuloma. Medial right middle lobe broncholith versus calcified granuloma. Mediastinum: Mildly enlarged AP window lymph node measuring 10 mm in axis appears unchanged. Shotty m ediastinal lymph nodes. No pericardial effusion. Bones: Thoracolumbar fusion partially imaged. Prior T9, T10 and T11 vertebroplasty. Prior lower cervi rena spine ACDF partially imaged. Mild loss of disk space height within the mid thoracic spine. Modera te loss of disk space height in the lower thoracic spine. Visualized Abdomen: Unremarkable. Other: None. IMPRESSION: Stable exam. Extensive bronchiolitis within right greater than left lower lobes. Bronchiolitis also i nvolving right middle lobe, right upper lobe and lingula. Prominent bilateral lower lobe bronchial wa ll thickening with areas of mucous plugging. Right lower lobe bronchiectasis. Stable mild mediastinal adenopathy. [facility] Referring Provider Line: [phone] SITE ID: [id number]
== END 2017-04-08 08:48 | disposition home or self-care (01) ==
LOC: DI 08:47
PROVIDERS: ATTEND Internal Medicine Critical Care Medicine
DX: J47.9 Bronchiectasis, uncomplicated (principal); J21.9 Acute bronchiolitis, unspecified; R59.0 Localized enlarged lymph nodes
CPT/HCPCS: 71250

== ENCOUNTER 2017-08-28 16:20 | Outpatient (CLI) | payer MEDICARE, OTHER ==
--- NOTE | 2017-08-29 09:46 | XRAY Report ---
TWO VIEW CHEST: 08/28/2017 CLINICAL INDICATION: Bronchiectasis. COMPARISON: 05/19/2017. FINDINGS: Frontal and lateral views of the chest demonstrate a normal cardiac silhouette. Spinal fusion hardware in the lower thoracic spine appears stable. Bronchiectasis with bibasilar scarring is unchanged. No new consolidation, effusion, or pneumothorax is present. Cervical spine fusion hardware and old, healed rib fractures are again noted. IMPRESSION: STABLE BRONCHIECTASIS AND BIBASILAR SCARRING. NO SIGNIFICANT INTERVAL CHANGE. TD: 08/29/2017 09:45
== END 2017-08-28 16:21 | disposition home or self-care (01) ==
LOC: DI 16:20
PROVIDERS: ATTEND Physician Assistant
DX: J47.9 Bronchiectasis, uncomplicated (principal)
CPT/HCPCS: 71046

== ENCOUNTER 2017-10-13 23:13 | Outpatient (CLI) | payer MEDICARE, OTHER ==
[2017-10-30] MEDS ORDERED: SODIUM CHLORIDE 0.9% 10 ML ONE (08:45)
== END 2017-10-13 23:59 | disposition critical access hospital (66) ==
LOC: EMS 23:13
PROVIDERS: ATTEND Surgery
DX: R10.9 Unspecified abdominal pain (principal); R11.2 Nausea with vomiting, unspecified; M54.5 Low back pain
CPT/HCPCS: A0425; A0429

== ENCOUNTER 2017-10-13 23:41 | Emergency (ER) | payer MEDICARE, OTHER ==
[2017-10-14] MEDS ORDERED: DEXAMETHASONE 10 MG/ML VIAL PO STA (00:18)
[2017-10-14] MEDS ORDERED: ONDANSETRON 4 MG/2 ML VIAL IVP STA (00:18)
[2017-10-14] MEDS ORDERED: SODIUM CHLORIDE 0.9% 1,000 ML IV ONE ×2 (00:18→05:18)
--- NOTE | 2017-10-14 00:19 | ED Physician Documentation ---
PD HPI ABD PAIN - Stated complaint Stated Complaint: BACK PAIN - Chief complaint Chief Complaint: Abd Pain - History obtained from History obtained from: Patient, EMS Review of Systems Constitutional: denies: Fever, Chills GI: reports: Abdominal Pain, Abdominal Swelling, Nausea, Vomiting. denies: Constipation, Diarrhea : denies: Dysuria, Frequency, Hesitancy PD PAST MEDICAL HISTORY - Past Medical History Past Medical History: Yes Cardiovascular: None Respiratory: Asthma, Pneumonia, Shortness of breath Neuro: None Endocrine/Autoimmune: HyPOthyroidism GI: GERD, Other : Frequency HEENT: None Psych: Depression Musculoskeletal: Osteoarthritis, Osteoporosis, Osteopenia, Scoliosis, Chronic back pain Derm: None - Past Surgical History Past Surgical History: Yes General: Colonoscopy Ortho: Spine surgery - Present Medications Home Medications: Ambulatory Orders Medication Instructions Recorded Confirmed Ciclesonide [Omnaris] 1 sprays HENRY BID 12/12/12 11/17/16 Meloxicam [Mobic] 15 mg PO DAILY 12/12/12 11/17/16 Montelukast Sodium [Singulair] 10 mg PO DAILY 12/12/12 11/17/16 Ipratropium/Albuterol [Duoneb] 1 amp INH QID PRN 10/27/13 11/17/16 Albuterol Sulf [Ventolin Hfa 2 puffs INH Q4H PRN 11/17/16 11/17/16 Inhaler] Alendronate [Fosamax] 70 mg PO Q7D 11/17/16 11/17/16 Dicyclomine [Bentyl] 10 mg PO BID PRN 11/17/16 11/17/16 Esomeprazole Magnesium [Nexium] 40 mg PO QDAC 11/17/16 11/17/16 Fluticasone 220 Mcg [Flovent] 2 puffs INH BID 11/17/16 11/17/16 Levocetirizine Dihydrochloride 5 mg DAILY 11/17/16 11/17/16 [Xyzal] Levothyroxine Sodium [Synthroid] 50 mcg PO QDAC 11/17/16 11/17/16 Loratadine [Claritin] 10 mg PO DAILY 11/17/16 11/17/16 Morphine Sulfate [Ms Contin] 15 mg PO BID 11/17/16 11/17/16 oxyCODONE [Roxicodone] 5 mg PO BID PRN 11/17/16 11/17/16 Acetaminophen [Tylenol] 650 mg PO Q4HR PRN #0 tablet 11/20/16 Aspirin EC [Ecotrin] 325 mg PO DAILY 14 Days tablet 11/20/16 Calcium Carbonate/Vitamin D3 1 each PO BIDAC #60 tablet 11/20/16 [Calcium 600 + Vit D 400 Tablet] Docusate Sodium 250Mg Capsule 250 mg PO BID #60 capsule 11/20/16 [Colace 250Mg Capsule] Enoxaparin [Lovenox] 40 mg SUBQ DAILY #26 syringe 11/20/16 Lidocaine Patch 5% [Lidoderm Patch] 1 patch TOP DAILY PRN #14 patch 11/20/16 Polyethylene Glycol 3350 [Miralax] 17 gm PO DAILY PRN #30 packet 11/20/16 Voriconazole [Vfend] 200 mg PO BID #0 11/20/16 11/17/16 - Allergies Allergies/Adverse Reactions: Allergies Allergy/AdvReac Type Severity Reaction Status Date / Time peanut Allergy Severe anaphylaxis Verified 10/14/17 01:44 Penicillins Allergy Intermediate unknown Verified 10/14/17 01:44 hydroxyzine HCl * Allergy Anxiety Verified 10/14/17 01:44 [From Vistaril] hydroxyzine pamoate * Allergy Anxiety Verified 10/14/17 01:44 [From Vistaril] tetanus toxoid, adsorbed Allergy Respiratory Verified 10/14/17 01:44 peas Allergy Intermediate unknown Uncoded 10/14/17 01:44 - Social History Does the pt smoke?: No Smoking Status: Never smoker Does the pt drink ETOH?: Yes Does the pt have substance abuse?: No - Immunizations Immunizations are current?: Yes - POLST Patient has POLST: No PD ED PE NORMAL - Vitals Vital signs reviewed: Yes - General General: Alert and oriented X 3 - HEENT HEENT: Atraumatic - Cardiac Cardiac: RRR - Respiratory Respiratory: No respiratory distress - Derm Derm: Normal color, Warm and dry - Extremities Extremities: No deformity - Neuro Neuro: Alert and oriented X 3 Eye Opening: Spontaneous Motor: Obeys Commands Verbal: Oriented GCS Score: 15 PD ED PE EXPANDED - HEENT HEENT: Dry mucous membranes - Abdomen Abdomen: Absent BS, Tender to palpation, Surgical scars. No: Rebound, Guarding Results - Vitals Vitals: Vital Signs - 24 hr 10/13/17 10/14/17 10/14/17 23:48 01:00 01:28 Temperature 36.5 C Heart Rate 93 85 93 Respiratory 18 16 16 Rate Blood Pressure 147/89 H 132/85 H 151/87 H O2 Saturation 99 95 94 10/14/17 10/14/17 02:35 03:14 Temperature Heart Rate 92 101 H Respiratory 16 18 Rate Blood Pressure 141/86 H 153/82 H O2 Saturation 94 94 Oxygen O2 Source Room air - Labs Labs: Laboratory Tests 10/14/17 10/14/17 10/14/17 00:25 00:25 00:25 WBC 14.2 H RBC 4.86 Hgb 12.3 Hct 38.2 MCV 78.7 L MCH 25.4 L MCHC 32.2 RDW 17.2 H Plt Count 473 H MPV 6.6 L Neut # 11.6 H Lymph # 1.2 L Gosper # 1.1 H Eos # 0.2 Baso # 0.1 Absolute Nucleated RBC 0.00 Nucleated RBC % 0.0 Sodium 132 L Potassium 4.1 Chloride 96 L Carbon Dioxide 27 Anion Gap 9.0 BUN 15 Creatinine 0.8 Estimated GFR (MDRD) 73 L Glucose 163 H Lactic Acid Calcium 9.2 Total Bilirubin 0.9 AST 25 ALT 20 Alkaline Phosphatase 69 Troponin I < 0.04 Total Protein 7.0 Albumin 3.5 Globulin 3.5 Albumin/Globulin Ratio 1.0 Lipase 22 Urine Color Urine Clarity Urine pH Ur Specific [place] Urine Protein Urine Glucose (UA) Urine Ketones Urine Occult Blood Urine Nitrite Urine Bilirubin Urine Urobilinogen Ur Leukocyte Esterase Ur Microscopic Review Urine Culture Comments 10/14/17 10/14/17 00:32 02:34 WBC RBC Hgb Hct MCV MCH MCHC RDW Plt Count MPV Neut # Lymph # Gosper # Eos # Baso # Absolute Nucleated RBC Nucleated RBC % Sodium Potassium Chloride Carbon Dioxide Anion Gap BUN Creatinine Estimated GFR (MDRD) Glucose Lactic Acid 0.9 Calcium Total Bilirubin AST ALT Alkaline Phosphatase Troponin I Total Protein Albumin Globulin Albumin/Globulin Ratio Lipase Urine Color YELLOW Urine Clarity CLEAR Urine pH 6.5 Ur Specific [place] <=1.005 Urine Protein NEGATIVE Urine Glucose (UA) NEGATIVE Urine Ketones NEGATIVE Urine Occult Blood NEGATIVE Urine Nitrite NEGATIVE Urine Bilirubin NEGATIVE Urine Urobilinogen 0.2 (NORMAL) Ur Leukocyte Esterase NEGATIVE Ur Microscopic Review NOT INDICATED Urine Culture Comments NOT INDICATED - Rads (name of study) ct abd pelvis Radiology: Final report received PD MEDICAL DECISION MAKING - ED course Complexity details: reviewed old records, reviewed results, re-evaluated patient , considered differential, d/w patient, d/w healthcare management consultant ED course: Patient was seen and examined at bedside. IV access was gained and labs were drawn. patient was treated with IV fluids and zofran. Imaging was ordered. When patient returned from imaging the results were rviewed. there was a small bowel obstruction. Patient was treated with morphine for pain and additional zofran. patient's surgeon was contacted (Dr. Browne) and the case was discussed with him. He accepted the patient in transfer. There were no beds at at that time so patient waited in the emergency department until a bed was available. Departure - Departure Disposition: 02 Transfer Acute Care Hosp Clinical Impression: Small bowel obstruction due to postoperative adhesions Condition: Good
[2017-10-14 00:39] LABS: BASOPHILS # (AUTO) 0.1 10^3/uL (0.0-0.1); BASOPHILS % (AUTO) 0.5 %; EOSINOPHILS # (AUTO) 0.2 10^3/uL (0.0-0.7); EOSINOPHILS % (AUTO) 1.5 %; HGB - HEMOGLOBIN 12.3 g/dL (12.0-16.0); LYMPHOCYTES # (AUTO) 1.2 10^3/uL (1.5-3.5); LYMPHOCYTES % (AUTO) 8.8 %; MEAN CORPUSCULAR HEMOGLOBIN 25.4 pg (27.0-31.0); MEAN CORPUSCULAR HGB CONC 32.2 g/dL (32.0-36.0); MEAN CORPUSCULAR VOLUME 78.7 fL (81.0-99.0); MEAN PLATELET VOLUME 6.6 fL (7.9-10.8); MONOCYTES # (AUTO) 1.1 10^3/uL (0.0-1.0); MONOCYTES % (AUTO) 7.6 %; NEUTROPHILS # (AUTO) 11.6 10^3/uL (1.5-6.6); NEUTROPHILS % (AUTO) 81.6 %; PLT - PLATELET COUNT 473 10^3/uL (130-450); RED BLOOD COUNT 4.86 10^6/uL (4.20-5.40); RED CELL DISTRIBUTION WIDTH 17.2 % (12.0-15.0); WHITE BLOOD COUNT 14.2 x10^3/uL (4.8-10.8)
[2017-10-14 00:51] LABS: ALBUMIN 3.5 g/dL (3.2-5.5); BILIRUBIN,TOTAL 0.9 mg/dL (0.2-1.0); CALCIUM 9.2 mg/dL (8.5-10.3); CREATININE 0.8 mg/dL (0.4-1.0)
[2017-10-14] MEDS ORDERED: IOPAMIDOL-300 100 ML VIAL ONE (01:06)
[2017-10-14] MEDS ORDERED: IOPAMIDOL-300 100 ML VIAL IVP ONE (01:09)
--- NOTE | 2017-10-14 02:24 | CT Preliminary Report ---
Exam: CT ABDOMEN/PELVIS W/ IMPRESSION: 1. High-grade small bowel obstruction with a transition within the midportion of the abdomen, probabl y affecting the distal jejunum. Maximal small bowel diameter involving the third portion of the duode num, measures up to 6 cm. 2. There is a a rim-enhancing fluid collection at the anterior abdominal wall extending from the subx iphoid region down up to the mid pelvis. This measures 27.8 x 13.1 x 3.8 cm. This may represent a pos toperative seroma in this patient status post abdominal mesh placement. However abscess would be diff icult to exclude with certainty. 3. There is a lentiform fluid collection at the gallbladder fossa without surrounding inflammatory ch jaydon. This may be a postoperative seroma. Differential diagnosis also includes a biloma. 4. Stable chronic bronchial and bronchiolar wall thickening of the lower lobes bilaterally coupled wi th areas of bronchiolar plugging and extensive centrilobular nodularity. These may be a sequela of ch ronic indolent infection. [facility] SITE ID: [id number]
[2017-10-14 02:37] LABS: BILIRUBIN,URINE NEGATIVE (NEGATIVE); GLUCOSE, URINE (UA) NEGATIVE (NEGATIVE); KETONES,URINE (UA) NEGATIVE (NEGATIVE); LEUKOCYTE ESTERASE, URINE NEGATIVE (NEGATIVE); NITRITE,URINE NEGATIVE (NEGATIVE); OCCULT BLOOD,URINE NEGATIVE (NEGATIVE); PH,URINE 6.5 PH (5.0-7.5); PROTEIN,URINE NEGATIVE (NEGATIVE); UROBILINOGEN,URINE 0.2 (NORMAL) E.U./dL (NORMAL)
[2017-10-14] MEDS ORDERED: MORPHINE 10 MG/ML VIAL IVP STA ×3 (02:41→09:36)
[2017-10-14 02:43] LABS: CLARITY,URINE CLEAR (CLEAR)
--- NOTE | 2017-10-14 02:43 | CT Report ---
EXAM: CT ABDOMEN AND PELVIS EXAM DATE: 10/14/2017 01:20 AM. CLINICAL HISTORY: Abdominal pain, multiple prior abdominal surgeries. COMPARISONS: CT 09/23/2016. TECHNIQUE: Routine helical CT imaging was performed through the abdomen and pelvis. IV contrast: 100M L ISOVUE 300. Enteric contrast: No. Reconstructions: Coronal and sagittal. In accordance with CT protocol optimization, one or more of the following dose reduction techniques w ere utilized for this exam: automated exposure control, adjustment of mA and/or KV based on patient s ize, or use of iterative reconstructive technique. FINDINGS: ABDOMEN: Liver: No significant abnormality. Stomach/Distal Esophagus: There is a small to medium hiatal hernia. Gallbladder: Surgically absent. There is a small lentiform fluid collection in the gallbladder fossa without significant surrounding inflammatory change at this time. Bile Ducts: No significant biliary dilation. Pancreas: No significant abnormality. Spleen: No significant abnormality. Kidneys: No suspicious solid appearing lesion. No hydronephrosis. Adrenals: No significant abnormality. Bowel: Moderate to severely dilated small bowel loops are present with high-grade small bowel obstruc tion pattern. Transition is noted within the central aspect of the abdomen at the expected level of t he umbilicus near the midline (image 46 series 3). Maximal small bowel diameter involving the third p ortion of the duodenum measures up to 6 cm. There is no definite pneumatosis demonstrated at this deanna e. Complex prior GI tract surgical history is noted. Possible partial gastrectomy. Appendix: Normal. Lymph Nodes: No pathologically enlarged nodes. Vasculature: Normal caliber aorta. Fluid: Small volume upper abdominal ascites. Abdominal Wall: There is a fluid collection within the anterior subcutaneous tissues near the midline along the anterior abdominal wall, extending from the subxiphoid region down to the midportion of th e pelvis. This measures 27.8 x 13.1 x 3.8 cm (image 54 series 3). There is mild rim enhancement aroun d this collection. No internal gas visualized at this time. Other: No significant abnormality. PELVIS: Uterus and Ovaries: Postmenopausal in appearance. Bladder: No significant abnormality. Lymph Nodes: No pathologically enlarged nodes. Fluid: Small amount of fluid layers noted within the pelvis. Other: None. BONES: There is extensive spinal hardware. Old fracture deformity of the left humerus status post BLANCHE F. LOWER CHEST: Small pleural-based nodule along the right hemidiaphragmatic surface is noted. There is a bilateral lower lobe bronchiectasis with areas of bronchial and bronchiolar wall thickening. There is moderate bronchiolar plugging as well. Scattered moderate centrilobular distribution nodularity is seen within the lower lobes bilaterally, stable to minimally improved from the prior study. Combined findings suggest a sequela of chronic indolent infection. IMPRESSION: 1. High-grade small bowel obstruction with a transition within the midportion of the abdomen, probabl y affecting the distal jejunum. Maximal small bowel diameter involving the third portion of the duode num, measures up to 6 cm. 2. There is a rim-enhancing fluid collection at the anterior abdominal wall extending from the subxip hoid region down up to the mid pelvis. This measures 27.8 x 13.1 x 3.8 cm. This may represent a posto perative seroma in this patient status post abdominal mesh placement. However abscess would be diffic ult to exclude with certainty. 3. There is a lentiform fluid collection at the gallbladder fossa without surrounding inflammatory ch jaydon. This may be a postoperative seroma. Differential diagnosis also includes a biloma. 4. Stable chronic bronchial and bronchiolar wall thickening within the lower lobes bilaterally couple d with areas of bronchiolar plugging and extensive centrilobular nodularity. These may be a sequela o f chronic indolent infection. [facility] Referring Provider Line: [phone] SITE ID: [id number]
[2017-10-14] MEDS ORDERED: LIDOCAINE JELLY 2% 5 ML TUBE TOP STA (03:37)
[2017-10-14 11:07] VITALS: BP 123/61
== END 2017-10-14 11:11 | disposition short-term general hospital (02) ==
LOC: EDUNIT# → SUPCPDRO 23:41 → ED 23:41
DX: K56.50 Intestinal adhesions [bands], unspecified as to partial versus complete obstruction (principal); Y83.8 Other surgical procedures as the cause of abnormal reaction of the patient, or of later complication, without mention of misadventure at the time of the procedure
CPT/HCPCS: 36415; 74177; 80053; 81003; 83605; 83690; 84484; 85025; 96361; 96374; 96375; 96376; 99284; 99285; J3490; Q9967; 81001; 87086

== ENCOUNTER 2017-10-14 11:20 | Outpatient (CLI) | payer MEDICARE, OTHER | END 2017-10-14 11:21 | disposition short-term general hospital (02) | LOC: EMS 11:20 | PROVIDERS: ATTEND Surgery | DX: R10.9 Unspecified abdominal pain (principal); R11.2 Nausea with vomiting, unspecified; K59.00 Constipation, unspecified | CPT/HCPCS: A0170; A0425; A0426 ==

== ENCOUNTER 2018-06-29 14:51 | Outpatient (CLI) | payer MEDICARE ==
--- NOTE | 2018-06-30 16:24 | XRAY Report ---
Reason: RIB PX, LF SIDE Procedure Date: 06/29/2018 Accession Number: [id number] / [id number] Procedure: WCP - Ribs 2 View LT CPT Code: FULL RESULT: EXAM: LEFT RIB RADIOGRAPHY EXAM DATE: 06/29/2018 03:04 PM. CLINICAL HISTORY: Fall onto left chest with upper rib pain. Injury 06/28/2018 COMPARISON: Chest x-ray 08/28/2017. TECHNIQUE: 2 views. FINDINGS: Bones: Left lateral fifth, sixth and seventh rib lucent fractures are seen, consistent with acute fracture. Subtle contour irregularity without clear lucent fracture line in the left fourth and eighth ribs as well. Diffuse osteopenia. Postoperative changes from instrumented fusion in the lower thoracic/ lumbar spine and vertebroplasty change in lower thoracic spine. Lower cervical ACDF plate and screws. No bone lesion suspicious for malignancy Lungs: Left lung base medial atelectasis versus consolidation of other cause new compared to prior study. Mediastinum: Heart and cardiomediastinal contours are unremarkable. Other: None. IMPRESSION: 1. Multiple left lateral rib acute fractures with definite lucent fracture lines in the fifth, sixth and seventh ribs. No pneumothorax is seen. No gross pleural effusion. 2. Left lung base probable atelectasis new compared to prior exam 08/28/2017. 3. Examination otherwise as above [facility]
== END 2018-06-29 14:52 | disposition home or self-care (01) ==
LOC: DI.WCP 14:51
PROVIDERS: ATTEND Physician Assistant
DX: S22.42XA Multiple fractures of ribs, left side, initial encounter for closed fracture (principal)

== ENCOUNTER 2018-07-14 10:12 | Emergency (ER) | payer MEDICARE ==
--- NOTE | 2018-07-14 11:12 | ED Physician Documentation ---
PD HPI ABD PAIN - Stated complaint Stated Complaint: ABD PX/VOMITING - Chief complaint Chief Complaint: Abd Pain - History obtained from History obtained from: Patient - History of Present Illness Timing - onset: Yesterday Timing - details: Abrupt onset (Patient states she felt feverish and achy with nausea and had repetitive vomiting yesterday into today. She had had a fall with rib fractures 2-3 weeks ago and still has been having pain from those and says the vomiting really increased her rib pains. She did not have any diarrhea. She denies any head cold symptoms.) Quality: Cramping, Aching Location: Epigastric Radiation: No: Chest, Lower back Improved by: No: Vomiting Worsened by: Eating Associated symptoms: Fever, Nausea, Vomiting. No: Diarrhea, Constipation, Dysuria Similar symptoms before: Diagnosis (has had similar with partial SBO in the past and is concerned about that.) Recently seen: Clinic, Emergency Dept (seen couple weeks ago for fall with few ribs fractures left side. Having abrupt emesis and nausea couple days ago, which has persisted. This has caused the prior broken ribs to hurt more again. She is not able to take her care home pain meds nor her current added pain meds for this. Having worse vomiting again today.) Review of Systems Constitutional: denies: Fever, Chills Nose: denies: Rhinorrhea / runny nose, Congestion Throat: denies: Sore throat Cardiac: denies: Chest pain / pressure Respiratory: denies: Dyspnea, Cough GI: reports: Abdominal Pain, Nausea, Vomiting. denies: Constipation, Diarrhea, Bloody / black stool : denies: Dysuria, Frequency Skin: denies: Rash, Lesions PD PAST MEDICAL HISTORY - Past Medical History Past Medical History: Yes Cardiovascular: None Respiratory: Asthma, Pneumonia, Shortness of breath, Other Neuro: None Endocrine/Autoimmune: HyPOthyroidism GI: GERD, Other : Frequency HEENT: None Psych: Depression Musculoskeletal: Osteoarthritis, Osteoporosis, Osteopenia, Scoliosis, Chronic back pain Derm: None - Past Surgical History Past Surgical History: Yes General: Gastric surgery, Colonoscopy Ortho: Spine surgery - Present Medications Home Medications: Ambulatory Orders Medication Instructions Recorded Confirmed Ciclesonide [Omnaris] 1 sprays HENRY BID 12/12/12 11/17/16 Meloxicam [Mobic] 15 mg PO DAILY 12/12/12 11/17/16 Montelukast Sodium [Singulair] 10 mg PO DAILY 12/12/12 11/17/16 Ipratropium/Albuterol [Duoneb] 1 amp INH QID PRN 10/27/13 11/17/16 Albuterol Sulf [Ventolin Hfa 2 puffs INH Q4H PRN 11/17/16 11/17/16 Inhaler] Alendronate [Fosamax] 70 mg PO Q7D 11/17/16 11/17/16 Dicyclomine [Bentyl] 10 mg PO BID PRN 11/17/16 11/17/16 Esomeprazole Magnesium [Nexium] 40 mg PO QDAC 11/17/16 11/17/16 Fluticasone 220 Mcg [Flovent] 2 puffs INH BID 11/17/16 11/17/16 Levocetirizine Dihydrochloride 5 mg DAILY 11/17/16 11/17/16 [Xyzal] Levothyroxine Sodium [Synthroid] 50 mcg PO QDAC 11/17/16 11/17/16 Loratadine [Claritin] 10 mg PO DAILY 11/17/16 11/17/16 Morphine Sulfate [Ms Contin] 15 mg PO BID 11/17/16 11/17/16 oxyCODONE [Roxicodone] 5 mg PO BID PRN 11/17/16 11/17/16 Acetaminophen [Tylenol] 650 mg PO Q4HR PRN #0 tablet 11/20/16 Aspirin EC [Ecotrin] 325 mg PO DAILY 14 Days tablet 11/20/16 Calcium Carbonate/Vitamin D3 1 each PO BIDAC #60 tablet 11/20/16 [Calcium 600 + Vit D 400 Tablet] Docusate Sodium 250Mg Capsule 250 mg PO BID #60 capsule 11/20/16 [Colace 250Mg Capsule] Enoxaparin [Lovenox] 40 mg SUBQ DAILY #26 syringe 11/20/16 Lidocaine Patch 5% [Lidoderm Patch] 1 patch TOP DAILY PRN #14 patch 11/20/16 Polyethylene Glycol 3350 [Miralax] 17 gm PO DAILY PRN #30 packet 11/20/16 Voriconazole [Vfend] 200 mg PO BID #0 11/20/16 11/17/16 Famotidine 20 mg PO DAILY #30 tablet 07/14/18 Lidocaine Viscous 2% [Xylocaine 5 ml PO Q4H PRN #100 ml 07/14/18 Viscous 2%] Ondansetron Odt [Zofran] 4 mg TL Q6H PRN #20 tablet 07/14/18 - Allergies Allergies/Adverse Reactions: Allergies Allergy/AdvReac Type Severity Reaction Status Date / Time peanut Allergy Severe anaphylaxis Verified 07/14/18 10:30 Penicillins Allergy Intermediate unknown Verified 07/14/18 10:30 hydroxyzine HCl * Allergy Anxiety Verified 07/14/18 10:30 [From Vistaril] hydroxyzine pamoate * Allergy Anxiety Verified 07/14/18 10:30 [From Vistaril] tetanus toxoid, adsorbed Allergy Respiratory Verified 07/14/18 10:30 peas Allergy Intermediate unknown Uncoded 07/14/18 10:30 - Social History Does the pt smoke?: No Smoking Status: Never smoker Does the pt drink ETOH?: Yes ETOH Use: Wine, Beer, Liquor Does the pt have substance abuse?: No - Immunizations Immunizations are current?: Yes - POLST Patient has POLST: No PD ED PE NORMAL - Vitals Vital signs reviewed: Yes - General General: Alert and oriented X 3, Well developed/nourished, Other (holding emesis bag with forceful heaving and some brown fluid emesis out, which has faint coffee ground appearance/texture. ) - HEENT HEENT: Ears normal, Pharynx benign - Neck Neck: Supple, no meningeal sign, No adenopathy - Cardiac Cardiac: No murmur. No: RRR (regular but tachycardic) - Respiratory Respiratory: Clear bilaterally - Abdomen Abdomen: Normal bowel sounds, Soft, Non distended, No organomegaly, Other (tender mid to epigastric abdomen without percussion nor rebound tenderness. ) - Derm Derm: Warm and dry, No rash. No: Normal color (pale) - Extremities Extremities: No deformity, No tenderness to palpate, Normal ROM s pain, No edema, No calf tenderness / cord - Neuro Neuro: Alert and oriented X 3, No motor deficit, Normal speech Results - Vitals Vitals: Vital Signs - 24 hr 07/14/18 07/14/18 07/14/18 10:27 13:15 14:33 Temperature 36.7 C Heart Rate 112 H 95 91 Respiratory 18 16 18 Rate Blood Pressure 129/79 129/70 125/76 O2 Saturation 97 94 97 Oxygen O2 Source Room air - Labs Labs: Laboratory Tests 07/14/18 07/14/18 07/14/18 12:05 12:05 12:05 WBC 7.8 RBC 4.14 L Hgb 10.2 L Hct 30.7 L MCV 74.3 L MCH 24.7 L MCHC 33.3 RDW 20.8 H Plt Count 192 MPV 7.5 L Neut # (Auto) 5.6 Lymph # (Auto) 1.2 L Mathews # (Auto) 0.8 Eos # (Auto) 0.0 Baso # (Auto) 0.1 Absolute Nucleated RBC 0.00 Nucleated RBC % 0.0 Sodium 129 L Potassium 4.3 Chloride 89 L Carbon Dioxide 28 Anion Gap 12.0 BUN 21 H Creatinine 0.7 Estimated GFR (MDRD) 85 L Glucose 168 H Lactic Acid 1.6 Calcium 9.0 Magnesium 1.7 Total Bilirubin 1.3 H AST 19 ALT 14 Alkaline Phosphatase 150 H Total Protein 7.3 Albumin 3.0 L Globulin 4.3 H Albumin/Globulin Ratio 0.7 L Lipase 18 L Influenza A (Rapid) Influenza B (Rapid) 07/14/18 12:40 WBC RBC Hgb Hct MCV MCH MCHC RDW Plt Count MPV Neut # (Auto) Lymph # (Auto) Mathews # (Auto) Eos # (Auto) Baso # (Auto) Absolute Nucleated RBC Nucleated RBC % Sodium Potassium Chloride Carbon Dioxide Anion Gap BUN Creatinine Estimated GFR (MDRD) Glucose Lactic Acid Calcium Magnesium Total Bilirubin AST ALT Alkaline Phosphatase Total Protein Albumin Globulin Albumin/Globulin Ratio Lipase Influenza A (Rapid) Negative Influenza B (Rapid) Negative - Rads (name of study) chest xray Radiology: Prelim report reviewed (normal lung liu. ) PD MEDICAL DECISION MAKING - ED course Complexity details: reviewed results, re-evaluated patient (improved symptoms with IV fluids and meds. Able to take PO fluids. ), considered differential (having emesis and nausea, with now guiac positive liquid brown emesis. ), d/w patient Departure - Departure Disposition: 01 Home, Self Care Clinical Impression: Vomiting Qualifiers: Vomiting type: unspecified Vomiting Intractability: non-intractable Nausea presence: with nausea Qualified Code(s): R11.2 - Nausea with vomiting, unspecified Abdominal pain Qualifiers: Abdominal location: upper abdomen, unspecified Qualified Code(s): R10.10 - Upper abdominal pain, unspecified Gastritis, acute Qualifiers: Gastritis type: other gastritis Gastritis bleeding: with bleeding Qualified Code(s): K29.01 - Acute gastritis with bleeding Condition: Stable Record reviewed to determine appropriate education?: Yes Instructions: ED Gastritis, ED Nausea Vomiting Follow-Up: Krysten Sellers DO [Primary Care Provider] - Prescriptions: Famotidine 20 mg PO DAILY #30 tablet Lidocaine Viscous 2% [Xylocaine Viscous 2%] 5 ml PO Q4H PRN #100 ml PRN Reason: Pain Ondansetron Odt [Zofran] 4 mg TL Q6H PRN #20 tablet PRN Reason: Nausea / Vomiting Comments: It seems you have an irritation of your stomach called gastritis. This might of initiated at is a viral illness with the vomiting and feeling of fevers. However it is likely continuing with just an irritation and he did have trace of blood in your vomit from earlier in the ER visit. I would have you discontinue the Mobic that you are taking for your broken ribs as anti-inflammatories can contribute to gastritis. Use Tylenol 650 mg 3-4 times a day for the pain. Add your oxycodone as needed. Continue your baseline dose of pain medications daily. Add famotidine acid reducing medicine. You can coat the stomach with antacids such as Maalox or Mylanta and add lidocaine to it if needed for the pain of the stomach. Ondansetron if needed for nausea. Follow-up with your primary care if not improving over the next several days. Discharge Date/Time: 07/14/18 14:38
[2018-07-14] MEDS ORDERED: SODIUM CHLORIDE 0.9% 1,000 ML IV ONE ×2 (11:46→11:48)
[2018-07-14] MEDS ORDERED: HYDROmorphone 1 MG/ML CARPUJECT IVP STA ×2 (11:46→13:36)
[2018-07-14] MEDS ORDERED: ONDANSETRON 4 MG/2 ML VIAL IVP STA (11:46)
[2018-07-14] MEDS ORDERED: FAMOTIDINE 20 MG/2 ML VIAL IVP STA (11:47)
[2018-07-14 12:21] LABS: BASOPHILS # (AUTO) 0.1 10^3/uL (0.0-0.1); EOSINOPHILS % (AUTO) 0.6 %; HGB - HEMOGLOBIN 10.2 g/dL (12.0-16.0); LYMPHOCYTES # (AUTO) 1.2 10^3/uL (1.5-3.5); LYMPHOCYTES % (AUTO) 15.2 %; MEAN CORPUSCULAR HEMOGLOBIN 24.7 pg (27.0-31.0); MEAN CORPUSCULAR HGB CONC 33.3 g/dL (32.0-36.0); MEAN CORPUSCULAR VOLUME 74.3 fL (81.0-99.0); MEAN PLATELET VOLUME 7.5 fL (7.9-10.8); MONOCYTES # (AUTO) 0.8 10^3/uL (0.0-1.0); MONOCYTES % (AUTO) 10.7 %; NEUTROPHILS # (AUTO) 5.6 10^3/uL (1.5-6.6); NEUTROPHILS % (AUTO) 72.5 %; PLT - PLATELET COUNT 192 10^3/uL (130-450); RED BLOOD COUNT 4.14 10^6/uL (4.20-5.40); RED CELL DISTRIBUTION WIDTH 20.8 % (12.0-15.0); WHITE BLOOD COUNT 7.8 x10^3/uL (4.8-10.8)
--- NOTE | 2018-07-14 12:48 | XRAY Report ---
Reason: chest pain Procedure Date: 07/14/2018 Accession Number: [id number] / [id number] Procedure: XR - Chest 1 View X-Ray CPT Code: 53797 FULL RESULT: EXAM: CHEST RADIOGRAPHY EXAM DATE: 07/14/2018 12:28 PM. CLINICAL HISTORY: Chest pain. COMPARISON: None. TECHNIQUE: 1 view. FINDINGS: Lungs/Pleura: No focal opacities evident. No pleural effusion. No pneumothorax. Mediastinum: Within exam limitations, the cardiomediastinal contour is normal. Other: None. IMPRESSION: No focal consolidation. RADIA
[2018-07-14 12:51] LABS: ALBUMIN/GLOBULIN RATIO 0.7 (1.0-2.2); BILIRUBIN,TOTAL 1.3 mg/dL (0.2-1.0); CREATININE 0.7 mg/dL (0.4-1.0); MAGNESIUM 1.7 mg/dL (1.7-2.8); TOTAL PROTEIN 7.3 g/dL (6.7-8.2)
[2018-07-14 14:33] VITALS: BP 125/76
== END 2018-07-14 14:38 | disposition home or self-care (01) ==
LOC: ED 10:12
DX: K29.01 Acute gastritis with bleeding (principal); Z79.899 Other long term (current) drug therapy
CPT/HCPCS: 36415; 71045; 80053; 83605; 83690; 83735; 85025; 87275; 87276; 96361; 96374; 96375; 96376; 99283; J1170

== ENCOUNTER 2018-07-16 11:56 | Inpatient (IN) | payer MEDICARE ==
--- NOTE | 2018-07-16 13:11 | ED Physician Documentation ---
PD HPI NVD - Stated complaint Stated Complaint: VOMITING/SENT BY DR - Chief complaint Chief Complaint: Abd Pain - History obtained from History obtained from: Patient - History of Present Illness Timing - onset: How many days ago (several days) Timing - duration: Days (She had had initially a viral type illness with cough congestion and some wheeziness nausea and vomiting. This persisted for a couple of days and was seen in the ER 2 days ago. She is given IV fluids and antiemetics and was taking oral at the time. Her coughing had improved. She states after leaving the ER she developed nausea and vomiting and subsequently abdominal distention and has had that for a couple of days. She states it feels similar to a bowel obstruction she had remotely. She is feeling dehydrated.) Timing - details: Gradual onset, Still present Associated symptoms: Abdominal pain. No: Fever Contributing factors: Other (had viral/ flu like symptoms the first few days of illness). No: Sick contact Improved by: No: Vomiting Worsened by: Eating Similar symptoms before: Diagnosis (the current symptoms of the past 2 days are c/w prior bowel obstruction that occurred after ventral hernia repair and CCY surgery.) Recently seen: Emergency Dept (2 days ago for cough/fever/nausea and vomiting. Did not have distension at the time.) Review of Systems Constitutional: reports: Fever (few days ago, not the past 2 days.), Myalgias Nose: reports: Congestion. denies: Rhinorrhea / runny nose Throat: denies: Sore throat Cardiac: denies: Chest pain / pressure, Palpitations Respiratory: reports: Cough GI: reports: Abdominal Pain, Abdominal Swelling, Nausea, Vomiting, Hematemesis (brown with coffee ground appearance). denies: Constipation, Diarrhea, Bloody / black stool : denies: Dysuria Skin: denies: Rash, Lesions Neurologic: reports: Generalized weakness. denies: Focal weakness, Numbness, Near syncope, Altered mental status PD PAST MEDICAL HISTORY - Past Medical History Cardiovascular: None Respiratory: Asthma, Pneumonia, Shortness of breath, Other Neuro: None Endocrine/Autoimmune: HyPOthyroidism GI: GERD, Other : Frequency HEENT: None Psych: Depression Musculoskeletal: Osteoarthritis, Osteoporosis, Osteopenia, Scoliosis, Chronic back pain Derm: None - Past Surgical History Past Surgical History: Yes General: Gastric surgery, Colonoscopy Ortho: Spine surgery - Present Medications Home Medications: Ambulatory Orders Medication Instructions Recorded Confirmed Meloxicam [Mobic] 15 mg PO DAILY 12/12/12 07/16/18 Montelukast Sodium [Singulair] 10 mg PO DAILY 12/12/12 07/16/18 Ipratropium/Albuterol [Duoneb] 1 amp INH QID PRN 10/27/13 07/16/18 Albuterol Sulf [Ventolin Hfa 2 puffs INH Q4H PRN 11/17/16 07/16/18 Inhaler] Alendronate [Fosamax] 70 mg PO Q7D 11/17/16 07/16/18 Dicyclomine [Bentyl] 10 mg PO BID PRN 11/17/16 07/16/18 Esomeprazole Magnesium [Nexium] 40 mg PO QDAC 11/17/16 07/16/18 Levothyroxine Sodium [Synthroid] 50 mcg PO QDAC 11/17/16 07/16/18 Loratadine [Claritin] 10 mg PO DAILY 11/17/16 07/16/18 Morphine Sulfate [Ms Contin] 15 mg PO BID 11/17/16 07/16/18 oxyCODONE [Roxicodone] 5 mg PO BID PRN 11/17/16 07/16/18 Acetaminophen [Tylenol] 650 mg PO Q4HR PRN #0 tablet 11/20/16 07/16/18 Famotidine 20 mg PO DAILY #30 tablet 07/14/18 07/16/18 Ondansetron Odt [Zofran] 4 mg TL Q6H PRN #20 tablet 07/14/18 07/16/18 Duloxetine HCl [Cymbalta] 60 mg PO DAILY 07/16/18 07/16/18 Fluticasone [Flonase] 1 sprays HENRY DAILY 07/16/18 07/16/18 Fluticasone/Salmeterol [Advair 1 puffs INH BID 07/16/18 07/16/18 500-50 Diskus] Phytonadione [Vitamin K] 100 mcg PO DAILY 07/16/18 07/16/18 Senna [Senokot] 25.8 mg PO QD 07/16/18 07/16/18 Vitamin E 400 unit PO DAILY 07/16/18 07/16/18 - Allergies Allergies/Adverse Reactions: Allergies Allergy/AdvReac Type Severity Reaction Status Date / Time peanut Allergy Severe anaphylaxis Verified 07/14/18 10:30 peas Allergy Intermediate Unknown Verified 07/16/18 18:06 Penicillins Allergy Intermediate unknown Verified 07/14/18 10:30 hydroxyzine HCl * Allergy Anxiety Verified 07/14/18 10:30 [From Vistaril] hydroxyzine pamoate * Allergy Anxiety Verified 07/14/18 10:30 [From Vistaril] tetanus toxoid, adsorbed Allergy Respiratory Verified 07/14/18 10:30 - Social History Does the pt smoke?: No Smoking Status: Never smoker Does the pt drink ETOH?: Yes Does the pt have substance abuse?: No - Immunizations Immunizations are current?: Yes - POLST Patient has POLST: No PD ED PE NORMAL - Vitals Vital signs reviewed: Yes - General General: Alert and oriented X 3, Well developed/nourished, Other (vomiting of fecal smelling brown emesis, that is gastroccult positive. ) - HEENT HEENT: Pharynx benign - Neck Neck: Supple, no meningeal sign, No adenopathy - Cardiac Cardiac: No murmur. No: RRR (tachycardic but regular) - Respiratory Respiratory: No respiratory distress, Clear bilaterally - Abdomen Abdomen: No organomegaly, Other (difusely tender, distended and tympanitic to percussion. ) - Female Female : Deferred - Rectal Rectal: Deferred - Back Back: No CVA TTP - Derm Derm: Normal color - Extremities Extremities: No deformity, No tenderness to palpate, Normal ROM s pain, No edema, No calf tenderness / cord - Neuro Neuro: Alert and oriented X 3, No motor deficit, Normal speech Results - Vitals Vitals: Vital Signs - 24 hr 07/16/18 07/16/18 07/16/18 12:18 15:02 17:37 Temperature 36.4 C L Heart Rate 134 H 105 H 68 Respiratory 20 16 18 Rate Blood Pressure 119/97 H 108/68 100/60 O2 Saturation 94 92 90 L Oxygen O2 Source Room air - Labs Labs: Laboratory Tests 07/16/18 07/16/18 07/16/18 13:00 13:00 13:00 WBC 6.6 RBC 4.42 Hgb 10.8 L Hct 32.2 L MCV 73.0 L MCH 24.5 L MCHC 33.6 RDW 19.3 H Plt Count 204 MPV 8.2 Neut # (Auto) 4.8 Lymph # (Auto) 1.1 L Moody # (Auto) 0.7 Eos # (Auto) 0.0 Baso # (Auto) 0.0 Absolute Nucleated RBC 0.00 Nucleated RBC % 0.0 Sodium 123 L Potassium 4.4 Chloride 78 L* Carbon Dioxide 27 Anion Gap 18.0 H BUN 35 H Creatinine 1.8 H Estimated GFR (MDRD) 28 L Glucose 182 H Lactic Acid Calcium 8.3 L Magnesium 2.5 Total Bilirubin 1.8 H AST 28 ALT 18 Alkaline Phosphatase 130 H Total Protein 7.5 Albumin 3.1 L Globulin 4.4 H Albumin/Globulin Ratio 0.7 L Lipase 18 L 07/16/18 13:48 WBC RBC Hgb Hct MCV MCH MCHC RDW Plt Count MPV Neut # (Auto) Lymph # (Auto) Moody # (Auto) Eos # (Auto) Baso # (Auto) Absolute Nucleated RBC Nucleated RBC % Sodium Potassium Chloride Carbon Dioxide Anion Gap BUN Creatinine Estimated GFR (MDRD) Glucose Lactic Acid 2.0 Calcium Magnesium Total Bilirubin AST ALT Alkaline Phosphatase Total Protein Albumin Globulin Albumin/Globulin Ratio Lipase - Rads (name of study) abd CT Radiology: Prelim report reviewed (dilated proximal small bowel and esophagus c/w high grade SBO.), EMP read contemporaneously, See rad report PD MEDICAL DECISION MAKING - ED course Complexity details: reviewed old records, reviewed results, re-evaluated patient, considered differential (She had been ill for several days with some cough congestion nausea and vomiting. It sounded like a viral illness. She states her cough has improved but her vomiting has persisted soon after leaving the hospital a couple of days ago from the ER. She is developed abdominal bloating and distention consistent with bowel obstruction she had had remotely. She has had repetitive vomiting the last couple of days and is feeling generally weak and lightheaded.), d/w patient, d/w wound care center consultant (Hospitalist, who will admit the patient and consult surgery. ) Departure - Departure Disposition: [facility] DC/Xfer Clinical Impression: Dehydration, Small bowel obstruction, Viral illness Intractable vomiting with nausea Qualifiers: Vomiting type: unspecified Qualified Code(s): R11.2 - Nausea with vomiting, unspecified
[2018-07-16] MEDS ORDERED: SODIUM CHLORIDE 0.9% 1,000 ML IV ONE ×2 (13:31→14:48)
[2018-07-16] MEDS ORDERED: ONDANSETRON 4 MG/2 ML VIAL IVP STA (13:32)
[2018-07-16] MEDS ORDERED: MORPHINE 2 MG/ML CARPUJECT IVP STA (13:32)
[2018-07-16] MEDS ORDERED: FAMOTIDINE 20 MG/2 ML VIAL IVP STA (13:33)
[2018-07-16 13:38] LABS: BASOPHILS % (AUTO) 0.2 %; EOSINOPHILS % (AUTO) 0.2 %; HGB - HEMOGLOBIN 10.8 g/dL (12.0-16.0); LYMPHOCYTES # (AUTO) 1.1 10^3/uL (1.5-3.5); LYMPHOCYTES % (AUTO) 16.1 %; MEAN CORPUSCULAR HEMOGLOBIN 24.5 pg (27.0-31.0); MEAN CORPUSCULAR HGB CONC 33.6 g/dL (32.0-36.0); MEAN PLATELET VOLUME 8.2 fL (7.9-10.8); MONOCYTES # (AUTO) 0.7 10^3/uL (0.0-1.0); MONOCYTES % (AUTO) 10.8 %; NEUTROPHILS # (AUTO) 4.8 10^3/uL (1.5-6.6); NEUTROPHILS % (AUTO) 72.7 %; PLT - PLATELET COUNT 204 10^3/uL (130-450); RED BLOOD COUNT 4.42 10^6/uL (4.20-5.40); RED CELL DISTRIBUTION WIDTH 19.3 % (12.0-15.0); WHITE BLOOD COUNT 6.6 x10^3/uL (4.8-10.8)
[2018-07-16 13:43] LABS: ALBUMIN 3.1 g/dL (3.2-5.5); ALBUMIN/GLOBULIN RATIO 0.7 (1.0-2.2); BILIRUBIN,TOTAL 1.8 mg/dL (0.2-1.0); CALCIUM 8.3 mg/dL (8.5-10.3); CREATININE 1.8 mg/dL (0.4-1.0); TOTAL PROTEIN 7.5 g/dL (6.7-8.2)
--- NOTE | 2018-07-16 15:39 | CT Report ---
Reason: abd distended and vomiting Procedure Date: 07/16/2018 Accession Number: [id number] / [id number] Procedure: CT - Abdomen/Pelvis WO CPT Code: FULL RESULT: EXAM: CT ABDOMEN AND PELVIS (CT KUB) EXAM DATE: 07/16/2018 02:38 PM. CLINICAL HISTORY: Abdomen distended and vomiting. COMPARISONS: ABDOMEN/PELVIS W/ 10/14/2017 1:[address] ABDOMEN AND PELVIS WITH CONTRAST 08/09/2016 10:45 AM. ABDOMEN/PELVIS W/WO 09/23/2016 9:41 AM. CHEST W/O 04/08/2017 8:54 AM. TECHNIQUE: Routine axial helical CT imaging was performed through the abdomen and pelvis without IV contrast. Reconstructions: Coronal and sagittal. In accordance with CT protocol optimization, one or more of the following dose reduction techniques were utilized for this exam: automated exposure control, adjustment of mA and/or KV based on patient size, or use of iterative reconstructive technique. FINDINGS: Lung bases: Normal heart size. The distal esophagus is dilated with fluid, could be a dilated hiatal hernia, increased from the prior. Mild to moderate bilateral lower lobe bronchiectasis appears increased from the prior with areas of bronchial wall thickening and peripheral opacification that have increased. Mild consolidation in the bilateral lower lobes posteriorly, increased. Multiple tree-in-bud opacifications in the bilateral lobes have increased, could represent bronchiolitis or mucous plugging. Aspiration could be present. Pneumonia could be present. Mild lingular and right middle lobe bronchiectasis. Right lower lobe pleural-based nodule, measures 1.5 x 0.9 cm on coronal image #31. Calcified right middle lobe pulmonary nodule. Evaluation is limited without IV contrast. Liver: Unremarkable. Gallbladder: Surgically removed. Bile ducts: Grossly unremarkable. Pancreas: Unremarkable. Spleen: Unremarkable. Adrenals: Unremarkable. Kidneys: Right upper pole renal calculus measures 5 mm. No definite hydronephrosis or hydroureter. No ureteral or bladder calculi are seen. Bowel: Stomach is distended with fluid. The duodenum is severely dilated, filled with fluid. There are multiple moderate to severely dilated small bowel loops seen in the abdomen and pelvis with multiple decompressed small bowel loops seen at the mid and distal small bowel. The transition from dilated to decompressed small bowel is seen on axial image #52 in the right side of the abdomen just to the right of midline consistent with a high-grade mid small bowel obstruction. No significant free fluid. No free air is seen. No pneumatosis is seen. The colon is decompressed. Pelvis: Decompressed bladder. Vasculature: No acute findings. No lymphadenopathy. Bones: Extensive thoracolumbar postsurgical changes with hardware again noted. IMPRESSION: 1. High-grade mid small bowel obstruction. See above. 2. Right renal calculus, nonobstructing. 3. The distal esophagus is dilated with fluid, could be a dilated hiatal hernia, increased from the prior. 4. Mild to moderate bilateral lower lobe bronchiectasis appears increased from the prior with areas of bronchial wall thickening and peripheral opacification that have increased. Mild consolidation in the bilateral lower lobe lobes posteriorly, increased. Multiple tree-in-bud opacifications in the bilateral lobes have increased, could represent bronchiolitis or mucous plugging. Aspiration could be present. Pneumonia could be present. Mild lingular and right middle lobe bronchiectasis. 5. Right lower lobe pleural-based nodule appears mildly increased compared to the priors. Evaluation is limited without IV contrast. Further workup is recommended. A chest CT preferably with IV contrast could further evaluate and compare with the priors. 6. See above. RADIA
[2018-07-16] MEDS ORDERED: LIDOCAINE VISCOUS 2% 15 ML UDC MM STA (15:53)
[2018-07-16] MEDS ORDERED: ONDANSETRON ODT 4 MG TABLET TL PRN (17:39)
[2018-07-16] MEDS ORDERED: PROCHLORPERAZINE 10 MG/2 ML VIAL IVP PRN (17:39)
[2018-07-16] MEDS ORDERED: ALBUTEROL NEB 2.5 MG/3 ML INH PRN (17:47)
[2018-07-16] MEDS ORDERED: LACTATED RINGERS 1,000 ML IV SCH (18:00)
[2018-07-16] MEDS: SODIUM CHLORIDE FLUSH 0.9% 10 ML SYRINGE IVP PRN (18:47)
[2018-07-16] MEDS ORDERED: PHENYLEPHRINE 20 MG in SODIUM CHLORIDE 0.9% 248 ML IV ONE (20:02)
--- NOTE | 2018-07-16 20:08 | CONSULTATION NOTE ---
Referring Provider Name of Referring Provider:: Dr. Christopher Consult Date: 07/16/18 Chief Complaint - Chief Complaint Chief Complaint: abd pain, N/V History of Present Illness - Admitted From Admitted From:: ER - History Obtained From Records Reviewed: yes History obtained from: pt, records Exam Limitations: none - History of Present Illness HPI Comment/Other: 63 yo female with 3 days of periumbilical abdominal pain, N/V of non bloody material. She was seen in the ER shortly after onset of sx and was thought to have a viral syndrome. However her sx persisted with inability to maintain oral intake and no passage of stool per rectum resulting in her returning to the ER today for reevaluation and admission. She has a hx of a similar condition last year following gallbladder and VIH repair surgery in [place] resulting in a 2.5 week hospitalization for ileus and or SBO. Her sx eventually resolved with conservative management and she did well until this episode. Her diet frequently includes raw vegetables and nuts. No melena, hematochezia, wt loss. Her last colonoscopy was 12 yrs ago and reportedly nl. Neg Fh GI tumors. She is s/p multiple additional surgeries including hiatal hernia repairs x 2 and LIH repair. No recent unexplained wt loss. CT abd/pelvis today showed markedly dilated loops of small bowel with transition zone in mid small bowel and decompressed small and large bowel distally, c/w a high grade partial SBO. Her sx have improved following NG tube placement in the ER. She reports sx of reflux despite the two HH repairs, which are well controlled with PPI therapy and no dysphagia. History - Past Medical History Cardiovascular: reports: None Respiratory: reports: Asthma, Pneumonia, Shortness of breath, Other (bronchiectasis; hx empyema) Neuro: reports: None Endocrine/Autoimmune: reports: HyPOthyroidism GI: reports: GERD, Other : reports: Frequency HEENT: reports: None Psych: reports: Depression Musculoskeletal: reports: Osteoarthritis, Osteoporosis, Osteopenia, Scoliosis, Chronic back pain Derm: reports: None MRSA Hx?: No - Past Surgical History General: reports: Cholecystectomy, Hiatal hernia repair (x 2), Colonoscopy (2006), Other (VIH repair 2018; remote LIH repair) Ortho: reports: Spine surgery Cardiovascular: reports: Other (drainage empyema) - Family & Social History Family History Comment/Other: neg for GI tumors Living arrangement: At home Living Situation: With spouse/s.o. - Substance History Use: Uses substance without health or social issues: Alcohol - POLST Patient has POLST: No Meds/Allgy - Home Medications Home Medications: Ambulatory Orders Medication Instructions Recorded Confirmed Meloxicam [Mobic] 15 mg PO DAILY 12/12/12 07/16/18 Montelukast Sodium [Singulair] 10 mg PO DAILY 12/12/12 07/16/18 Ipratropium/Albuterol [Duoneb] 1 amp INH QID PRN 10/27/13 07/16/18 Albuterol Sulf [Ventolin Hfa 2 puffs INH Q4H PRN 11/17/16 07/16/18 Inhaler] Alendronate [Fosamax] 70 mg PO Q7D 11/17/16 07/16/18 Dicyclomine [Bentyl] 10 mg PO BID PRN 11/17/16 07/16/18 Esomeprazole Magnesium [Nexium] 40 mg PO QDAC 11/17/16 07/16/18 Levothyroxine Sodium [Synthroid] 50 mcg PO QDAC 11/17/16 07/16/18 Loratadine [Claritin] 10 mg PO DAILY 11/17/16 07/16/18 Morphine Sulfate [Ms Contin] 15 mg PO BID 11/17/16 07/16/18 oxyCODONE [Roxicodone] 5 mg PO BID PRN 11/17/16 07/16/18 Acetaminophen [Tylenol] 650 mg PO Q4HR PRN #0 tablet 11/20/16 07/16/18 Famotidine 20 mg PO DAILY #30 tablet 07/14/18 07/16/18 Ondansetron Odt [Zofran] 4 mg TL Q6H PRN #20 tablet 07/14/18 07/16/18 Duloxetine HCl [Cymbalta] 60 mg PO DAILY 07/16/18 07/16/18 Fluticasone [Flonase] 1 sprays HENRY DAILY 07/16/18 07/16/18 Fluticasone/Salmeterol [Advair 1 puffs INH BID 07/16/18 07/16/18 500-50 Diskus] Phytonadione [Vitamin K] 100 mcg PO DAILY 07/16/18 07/16/18 Senna [Senokot] 25.8 mg PO QD 07/16/18 07/16/18 Vitamin E 400 unit PO DAILY 07/16/18 07/16/18 - Allergies Allergies/Adverse Reactions: Allergies Allergy/AdvReac Type Severity Reaction Status Date / Time peanut Allergy Severe anaphylaxis Verified 07/14/18 10:30 peas Allergy Intermediate Unknown Verified 07/16/18 18:06 Penicillins Allergy Intermediate unknown Verified 07/14/18 10:30 hydroxyzine HCl * Allergy Anxiety Verified 07/14/18 10:30 [From Vistaril] hydroxyzine pamoate * Allergy Anxiety Verified 07/14/18 10:30 [From Vistaril] tetanus toxoid, adsorbed Allergy Respiratory Verified 07/14/18 10:30 Review of Systems - Constitutional Constitutional: reports: Poor appetite. denies: Fever, Chills, Weight gain, Weight loss - Respiratory Respiratory: reports: Cough, Sputum production, SOB with exertion - Gastrointestinal Gastrointestinal: reports: Abdominal pain, Change in bowel habits, Nausea, Vomiting, Bile emesis, Reflux/heartburn. denies: Rectal bleeding, Black stools, Bloody stools, Nolan blood emesis, Coffee grounds emesis - Musculoskeletal Musculoskeletal: reports: Back pain, Joint pain - Hematologic/Lymphatic Hematologic/Lymphatic: denies: Blood clots, Bleeding tendencies - All Other Systems All Other Systems: reports: Reviewed and negative Exam - Vital Signs Reviewed Vital Signs: Yes Vital Signs: Vital Signs x48h Temp Pulse Pulse Resp BP BP Pulse Ox 07/16/18 18:44 37.0 C 109 H 102/53 L 95 07/16/18 18:24 99 07/16/18 17:37 68 18 100/60 90 L 07/16/18 15:02 105 H 16 108/68 92 07/16/18 12:18 36.4 C L 134 H 20 119/97 H 94 - Physical Exam General Appearance: positive: Alert, Mild distress Eyes Bilateral: positive: No scleral icterus ENT: positive: Dry mucous membranes Neck: positive: No JVD. negative: Lymphadenopathy (R), Lymphadenopathy (L) Respiratory: positive: Chest non-tender, Wheezes, Rales, Rhonchi Cardiovascular: positive: Regular rate & rhythm, No murmur, No gallop Abdomen: positive: Non-tender, No organomegaly, No distention (mild abd dis tention), Abnml bowel sounds (high pitched, hyperactive). negative: Tenderness, Guarding, Rebound, Hepatomegaly, Splenomegaly, Mass Skin: positive: Color nml, No rash, Warm, Dry. negative: Cyanosis Extremities: positive: Non-tender, No pedal edema. negative: Calf tenderness Neurologic/Psychiatric: positive: Oriented x3 Conclusion/Plan - Diagnosis Diagnosis: SBO, high grade partial; no evidence of strangulation obstruction or complete obstruction or acute abdomen at present. Etiology likely due to adhesions; neoplasm less likely. - Plan Plan: Agree with bowel rest, IVF, observation. Would initiate a gastrograffin challenge in the AM. Will follow. - Lab Results Fish Bones: 07/16/18 13:00 07/16/18 13:00 - Diagnostic Imaging Results Diagnostic Imaging Results: positive: Final report reviewed, Read independently Diagnostic Imaging Results Comments: See HPI
[2018-07-16] MEDS ORDERED: FAMOTIDINE 20 MG/50 ML 50 ML IV SCH (21:00)
--- NOTE | 2018-07-16 21:32 | HISTORY & PHYSICAL EXAMINATION ---
Chief Complaint - Chief Complaint Chief Complaint: Abdominal pain with N/V and weakness Abdominal Pain HPI - Admitted From Admitted from: ED - History Obtained From Records Reviewed: RN notes reviewed, Old records reviewed, Other (Dr Ivory) History obtained from: Patient Exam limitations: No limitations - History of Present Illness Severity at the worst: Severe HPI Comment/Other: 63 yo female with hx chronic bronchiectasis, RAD, Hiatal Hernia/GERD, hypothyroididsm, chronic back pain p/w with 3 days of periumbilical abdominal pain, N/V of non bloody material. She was seen in the ER shortly after onset of sx and was thought to have a viral syndrome. However her sx persisted with inability to maintain oral intake and no passage of stool per rectum resulting in her returning to the ER today for reevaluation and admission. She has a hx of a similar condition last year following gallbladder and VIH repair surgery in [place] resulting in a 2.5 week hospitalization for ileus and or SBO. Her sx eventually resolved with conservative management and she did well until this episode. Her diet frequently includes raw vegetables and nuts. No melena, hematochezia, wt loss. Her last colonoscopy was 12 yrs ago and reportedly nl. Neg Fh GI tumors. She is s/p multiple additional surgeries including hiatal hernia repairs x 2 and LIH repair. No recent unexplained wt loss. CT abd/pelvis today showed markedly dilated loops of small bowel with transition zone in mid small bowel and decompressed small and large bowel distally, c/w a high grade partial SBO. Her sx have improved following NG tube placement in the ER. She reports sx of reflux despite the two HH repairs, which are well controlled with PPI therapy and no dysphagia. PMH/PSH - Past Medical History Cardiovascular: positive: None Respiratory: positive: Asthma, Pneumonia, Shortness of breath, Other (bronchiectasis; hx empyema) Neuro: positive: None Endocrine/Autoimmune: positive: HyPOthyroidism GI: positive: GERD, Other : positive: Frequency HEENT: positive: None Psych: positive: Depression Musculoskeletal: positive: Osteoarthritis, Osteoporosis, Osteopenia, Scoliosis, Chronic back pain Derm: positive: None MRSA Hx?: No - Past Surgical History General: positive: Cholecystectomy, Hiatal hernia repair (x 2), Colonoscopy (2006 approx), Other (VIH repair 2018; remote LIH repair) Ortho: positive: Spine surgery Cardiovascular: positive: Other (drainage empyema) Social & Family Hx - Social History Does the pt smoke?: No Smoking Status: Never smoker Does the pt drink ETOH?: Yes Does the pt have substance abuse?: No - POLST Patient has POLST: No Meds/Allgy - Home Medications Home Medications: Ambulatory Orders Medication Instructions Recorded Confirmed Meloxicam [Mobic] 15 mg PO DAILY 12/12/12 07/16/18 Montelukast Sodium [Singulair] 10 mg PO DAILY 12/12/12 07/16/18 Ipratropium/Albuterol [Duoneb] 1 amp INH QID PRN 10/27/13 07/16/18 Albuterol Sulf [Ventolin Hfa 2 puffs INH Q4H PRN 11/17/16 07/16/18 Inhaler] Alendronate [Fosamax] 70 mg PO Q7D 11/17/16 07/16/18 Dicyclomine [Bentyl] 10 mg PO BID PRN 11/17/16 07/16/18 Esomeprazole Magnesium [Nexium] 40 mg PO QDAC 11/17/16 07/16/18 Levothyroxine Sodium [Synthroid] 50 mcg PO QDAC 11/17/16 07/16/18 Loratadine [Claritin] 10 mg PO DAILY 11/17/16 07/16/18 Morphine Sulfate [Ms Contin] 15 mg PO BID 11/17/16 07/16/18 oxyCODONE [Roxicodone] 5 mg PO BID PRN 11/17/16 07/16/18 Acetaminophen [Tylenol] 650 mg PO Q4HR PRN #0 tablet 11/20/16 07/16/18 Famotidine 20 mg PO DAILY #30 tablet 07/14/18 07/16/18 Ondansetron Odt [Zofran] 4 mg TL Q6H PRN #20 tablet 07/14/18 07/16/18 Duloxetine HCl [Cymbalta] 60 mg PO DAILY 07/16/18 07/16/18 Fluticasone [Flonase] 1 sprays HENRY DAILY 07/16/18 07/16/18 Fluticasone/Salmeterol [Advair 1 puffs INH BID 02/25/19 02/25/19 500-50 Diskus] Phytonadione [Vitamin K] 100 mcg PO DAILY 07/16/18 07/16/18 Senna [Senokot] 25.8 mg PO QD 07/16/18 07/16/18 Vitamin E 400 unit PO DAILY 07/16/18 07/16/18 - Allergies Allergies/Adverse Reactions: Allergies Allergy/AdvReac Type Severity Reaction Status Date / Time peanut Allergy Severe anaphylaxis Verified 07/14/18 10:30 peas Allergy Intermediate Unknown Verified 07/16/18 18:06 Penicillins Allergy Intermediate unknown Verified 07/14/18 10:30 hydroxyzine HCl * Allergy Anxiety Verified 07/14/18 10:30 [From Vistaril] hydroxyzine pamoate * Allergy Anxiety Verified 07/14/18 10:30 [From Vistaril] tetanus toxoid, adsorbed Allergy Respiratory Verified 07/14/18 10:30 Review of Systems - Constitutional Constitutional: reports: Weakness, Poor appetite - Ears, Nose & Throat Ears, Nose & Throat: denies: Tinnitus, Vertigo - Cardiovascular Cariovascular: denies: Irregular heart rate, Palpitations, Chest pain, Edema, Syncope - Respiratory Respiratory: denies: Cough, Sputum production, Wheezing - Gastrointestinal Gastrointestinal: reports: Abdominal pain, Nausea, Vomiting, Reflux/heartburn. denies: Coffee grounds emesis - Genitourinary Genitourinary: denies: Dysuria, Frequency, Urgency - Musculoskeletal Musculoskeletal: denies: Muscle weakness - Integumentary Integumentary: reports: Dryness. denies: Rash, Pruritis, Lesions - Neurological Neurological: denies: Dizziness, Memory problems, Seizures, Slurred speech - Psychiatric Psychiatric: denies: Depression, Anxiety - Endocrine Endocrine: denies: Polyuria, Polydypsia, Polyphagia - Hematologic/Lymphatic Hematologic/Lymphatic: denies: Anemia, Blood clots, Recurrent infections Prior Level of Functionality: Previously with home ADL's. Exam - Vital Signs Reviewed Vital Signs: Yes Vital Signs: Vital Signs x48h Temp Pulse Pulse Resp BP BP Pulse Ox 07/16/18 20:41 103 H 114/53 L 07/16/18 18:44 37.0 C 109 H 102/53 L 95 07/16/18 18:24 99 07/16/18 17:37 68 18 100/60 90 L 07/16/18 15:02 105 H 16 108/68 92 - Physical Exam General Appearance: positive: No acute distress, Alert Eyes Bilateral: positive: Normal inspection, PERRL, EOMI, Conjunctivae nml ENT: positive: ENT inspection nml, Pharynx nml, Dry mucous membranes Neck: positive: Nml inspection, Thyroid nml, No JVD, Trachea midline. negative: Thyromegaly Respiratory: positive: Chest non-tender, No respiratory distress, Breath sounds nml Cardiovascular: positive: Regular rate & rhythm, No murmur, No gallop. negative: Irregularly irregular Peripheral Pulses: positive: 2+ Abdomen: positive: Tenderness (to all quads, with some tympany on percussion), Guarding, Abnml bowel sounds Back: positive: Nml inspection Skin: positive: Color nml, No rash, Warm, Dry Extremities: positive: Non-tender, Full ROM, Nml appearance Neurologic/Psychiatric: positive: Oriented x3, CN's nml (2-12) Results - Lab Results Lab results reviewed: Yes Fish Bones: 07/17/18 04:53 07/17/18 04:53 Other Lab Results: Lab Results x24hrs 07/16/18 07/16/18 07/16/18 Range/Units 13:48 13:00 13:00 WBC (4.8-10.8) x10^3/uL RBC (4.20-5.40) 10^6/uL Hgb (12.0-16.0) g/dL Hct (37.0-47.0) % MCV (81.0-99.0) fL MCH (27.0-31.0) pg MCHC (32.0-36.0) g/dL RDW (12.0-15.0) % Plt Count (130-450) 10^3/uL MPV (7.9-10.8) fL Neut # (Auto) (1.5-6.6) 10^3/uL Lymph # (Auto) (1.5-3.5) 10^3/uL Falls # (Auto) (0.0-1.0) 10^3/uL Eos # (Auto) (0.0-0.7) 10^3/uL Baso # (Auto) (0.0-0.1) 10^3/uL Absolute Nucleated RBC x10^3/uL Nucleated RBC % /100WBC Sodium 123 L (135-145) mmol/L Potassium 4.4 (3.5-5.0) mmol/L Chloride 78 L* (101-111) mmol/L Carbon Dioxide 27 (21-32) mmol/L Anion Gap 18.0 H (6-13) BUN 35 H (6-20) mg/dL Creatinine 1.8 H (0.4-1.0) mg/dL Estimated GFR (MDRD) 28 L (>89) Glucose 182 H (70-100) mg/dL Lactic Acid 2.0 (0.5-2.2) mmol/L Calcium 8.3 L (8.5-10.3) mg/dL Magnesium 2.5 (1.7-2.8) mg/dL Total Bilirubin 1.8 H (0.2-1.0) mg/dL AST 28 (10-42) IU/L ALT 18 (10-60) IU/L Alkaline Phosphatase 130 H (42-121) IU/L Total Protein 7.5 (6.7-8.2) g/dL Albumin 3.1 L (3.2-5.5) g/dL Globulin 4.4 H (2.1-4.2) g/dL Albumin/Globulin Ratio 0.7 L (1.0-2.2) Lipase 18 L (22-51) U/L 07/16/18 Range/Units 13:00 WBC 6.6 (4.8-10.8) x10^3/uL RBC 4.42 (4.20-5.40) 10^6/uL Hgb 10.8 L (12.0-16.0) g/dL Hct 32.2 L (37.0-47.0) % MCV 73.0 L (81.0-99.0) fL MCH 24.5 L (27.0-31.0) pg MCHC 33.6 (32.0-36.0) g/dL RDW 19.3 H (12.0-15.0) % Plt Count 204 (130-450) 10^3/uL MPV 8.2 (7.9-10.8) fL Neut # (Auto) 4.8 (1.5-6.6) 10^3/uL Lymph # (Auto) 1.1 L (1.5-3.5) 10^3/uL Falls # (Auto) 0.7 (0.0-1.0) 10^3/uL Eos # (Auto) 0.0 (0.0-0.7) 10^3/uL Baso # (Auto) 0.0 (0.0-0.1) 10^3/uL Absolute Nucleated RBC 0.00 x10^3/uL Nucleated RBC % 0.0 /100WBC Sodium (135-145) mmol/L Potassium (3.5-5.0) mmol/L Chloride (101-111) mmol/L Carbon Dioxide (21-32) mmol/L Anion Gap (6-13) BUN (6-20) mg/dL Creatinine (0.4-1.0) mg/dL Estimated GFR (MDRD) (>89) Glucose (70-100) mg/dL Lactic Acid (0.5-2.2) mmol/L Calcium (8.5-10.3) mg/dL Magnesium (1.7-2.8) mg/dL Total Bilirubin (0.2-1.0) mg/dL AST (10-42) IU/L ALT (10-60) IU/L Alkaline Phosphatase (42-121) IU/L Total Protein (6.7-8.2) g/dL Albumin (3.2-5.5) g/dL Globulin (2.1-4.2) g/dL Albumin/Globulin Ratio (1.0-2.2) Lipase (22-51) U/L - Diagnostic Imaging Results Diagnostic Imaging Results: positive: Final report reviewed - EKG Results EKG Interpreted Independently: No Impression/Plan - Problem List Problem List: 1. Acute high-grade SBO sec to adhesions 2. Acute renal insufficiency 3. Severe dehydration with electrolyte disturbance 4. Hypovolemic shock 5. Iron def anemia 6. Hx Toshia Fundupliction with multiple abdominal surgeries in past 7. Hiatal hernia with dilated esophagus sec to high grade SBO 8. Abdominal pain 9. Chronic Bronchiectasis Plan: SBO, high grade partial; no evidence of strangulation obstruction or complete obstruction or acute abdomen at present. Etiology likely due to adhesions; neoplasm less likely. Currently in hypovolenic shock w/ associated sever GI loss as evidenced by hypokalemia, hyponatremia, and BRYSON seen with cr 1.8 when previously it was 0.8, would continue with high rate LR, NGT, NPO, bowel rest and transfer to higher level of care where he accepting MD Dr. Johan Browne has accepted but bed is pending. Pain control with morphine, IV PPI due to hx GERD/ and worsening HH on CT abd/pelvis. Hold all po meds for now as she has high grade SBO, synthroid may need to be given IV 50% dose. Iron def anemia, check iron studies and give IV iron as indicated, no evidence of bleeding currently. Electrolyte repletion avoid nephrotoxic agents. Duonebs, carey for patient's chronic bronchiectsis w/o fever, mucus production or s/s infection, sees Dr. Bang Quintanilla for now, would defer off IV abx for now. Surgery Dr. Leal er following and Would initiate a gastrograffin challenge in the AM. Code Status: FULL code Total critical care time: 30 min Core Measures - Anticipated LOS I expect patient to be DC'd or transferred within 96 hours.: Yes - DVT/VTE - Prophylaxis VTE/DVT Device ordered at admit?: Yes VTE/DVT Prophylaxis med ordered at admit?: No Not Ordered - Medical Reason: Not indicated - Stroke - Rehab Assessment Rehab services assessment to be ordered?: No Not Ordered - Medical Reason: Not indicated - AMI - Statin at Admit Aspirin Prescribed on Admit: No Not Ordered - Medical Reason: Not indicated
[2018-07-16] MEDS: LACTATED RINGERS 1,000 ML IV SCH (22:15)
[2018-07-17 01:16] LABS: % IRON SATURATION 6 % (20-50); IRON 14 ug/dL (28-170); TOTAL IRON BINDING CAPACITY 220 ug/dL (250-450); TRANSFERRIN 157 mg/dL (192-382)
[2018-07-17] MEDS: SODIUM CHLORIDE FLUSH 0.9% 10 ML SYRINGE IVP SCH ×3 (01:47→17:35)
[2018-07-17] MEDS: FORMOTEROL FUMARATE NEB 20 MCG/2 ML INH SCH ×3 (01:53→18:30)
[2018-07-17] MEDS: BUDESONIDE 0.5 MG/2 ML NEB INH SCH ×3 (01:53→18:31)
[2018-07-17 01:55] LABS: GLUCOSE, URINE (UA) NEGATIVE (NEGATIVE); KETONES,URINE (UA) 15 mg/dL (NEGATIVE); LEUKOCYTE ESTERASE, URINE NEGATIVE (NEGATIVE); NITRITE,URINE NEGATIVE (NEGATIVE); OCCULT BLOOD,URINE NEGATIVE (NEGATIVE); PH,URINE 5.5 PH (5.0-7.5); PROTEIN,URINE TRACE mg/dL (NEGATIVE); UROBILINOGEN,URINE 0.2 (NORMAL) E.U./dL (NORMAL)
[2018-07-17 01:56] LABS: BILIRUBIN,URINE NEGATIVE (NEGATIVE); CLARITY,URINE SL. CLOUDY (CLEAR); ICTOTEST,URINE NEGATIVE; RBC,URINE None Seen /HPF (0-5)
[2018-07-17 01:57] LABS: AMORPHOUS SEDIMENT,UR Moderate /LPF; BACTERIA,URINE None Seen /HPF (None Seen); CASTS, URINE 26-50Course Granular /LPF; MUCUS,URINE Marked Strands; SQUAMOUS EPITHELIAL CELL,UR FEW Squamous (<= Few)
[2018-07-17] MEDS: ONDANSETRON 4 MG/2 ML VIAL IVP PRN ×2 (02:29→20:26)
[2018-07-17] MEDS: LACTATED RINGERS 1,000 ML IV SCH (04:05)
[2018-07-17 05:34] LABS: BASOPHILS % (AUTO) 0.5 %; EOSINOPHILS % (AUTO) 0.6 %; HGB - HEMOGLOBIN 9.1 g/dL (12.0-16.0); LYMPHOCYTES # (AUTO) 0.7 10^3/uL (1.5-3.5); LYMPHOCYTES % (AUTO) 17.9 %; MEAN CORPUSCULAR HEMOGLOBIN 24.5 pg (27.0-31.0); MEAN CORPUSCULAR HGB CONC 31.9 g/dL (32.0-36.0); MEAN CORPUSCULAR VOLUME 76.9 fL (81.0-99.0); MEAN PLATELET VOLUME 7.8 fL (7.9-10.8); MONOCYTES # (AUTO) 0.6 10^3/uL (0.0-1.0); MONOCYTES % (AUTO) 14.8 %; NEUTROPHILS # (AUTO) 2.6 10^3/uL (1.5-6.6); NEUTROPHILS % (AUTO) 66.2 %; PLT - PLATELET COUNT 203 10^3/uL (130-450); RED CELL DISTRIBUTION WIDTH 19.7 % (12.0-15.0); WHITE BLOOD COUNT 3.9 x10^3/uL (4.8-10.8)
[2018-07-17 05:44] LABS: ALBUMIN 2.5 g/dL (3.2-5.5); ALBUMIN/GLOBULIN RATIO 0.7 (1.0-2.2); BILIRUBIN,TOTAL 1.4 mg/dL (0.2-1.0); CALCIUM 7.4 mg/dL (8.5-10.3); CREATININE 1.1 mg/dL (0.4-1.0); TOTAL PROTEIN 6.2 g/dL (6.7-8.2)
[2018-07-17] MEDS: PANTOPRAZOLE 40 MG VIAL IVP SCH (06:13)
[2018-07-17] MEDS ORDERED: DIATR MEGLU/DIATRIZOATE SODIUM 120 ML BOTTLE PO SCH (07:00)
[2018-07-17] MEDS ORDERED: DEXTROSE 5%-0.9% NACL 1,000 ML IV ONE (07:37)
--- NOTE | 2018-07-17 07:48 | PROVIDER PROGRESS NOTE ---
Subjective - Prog Note Date Prog Note Date: 07/17/18 Prog Note Time: 07:46 - Subjective Pt reports feeling: Improved Subjective: Awake, denies abd pain, dyspnea but c/o pain in his right foot. Objective - Vital Signs/Intake & Output Reviewed Vital Signs: Yes Vital Signs: Vital Signs Temp Pulse Pulse Resp BP Pulse Ox 07/17/18 07:42 37.8 C H 124 H 21 95 07/17/18 07:00 115 H 23 108/56 L 100 07/17/18 06:00 129 H 23 109/60 100 07/17/18 05:00 118 H 19 117/59 L 100 07/17/18 04:00 116 H 21 109/59 L 100 Intake & Output: Intake & Output 07/14/18 07/15/18 07/16/18 07/17/18 23:59 23:59 23:59 23:59 Intake Total 1131.25 2868.75 Output Total 500 1385 Balance 631.25 1483.75 - Objective General Appearance: positive: Other (intubated, appears comfortable except for c/o right foot pain) Eyes Bilateral: positive: No scleral icterus ENT: positive: Dry mucous membranes Neck: positive: No JVD Respiratory: positive: Chest non-tender, Other (clear anteriorly) Cardiovascular: positive: Regular rate & rhythm Abdomen: positive: Tenderness (minimal, expected postop tenderness), Abnml bowel sounds (hypoactive), Other (ileostomy viable, edematous, no output) Extremities: positive: Other (sequentials and teds removed; both feet pale, cold, no palpable pulses; several toes cyanotic) Neurologic/Psychiatric: positive: Motor nml, Sensation nml - Lab Results Fish Bones: 07/17/18 04:53 07/17/18 04:53 Other Labs: Lab Results x24hrs 07/17/18 07/17/18 07/16/18 Range/Units 04:53 04:53 22:45 WBC 3.9 L (4.8-10.8) x10^3/uL RBC 3.70 L (4.20-5.40) 10^6/uL Hgb 9.1 L (12.0-16.0) g/dL Hct 28.4 L (37.0-47.0) % MCV 76.9 L (81.0-99.0) fL MCH 24.5 L (27.0-31.0) pg MCHC 31.9 L (32.0-36.0) g/dL RDW 19.7 H (12.0-15.0) % Plt Count 203 (130-450) 10^3/uL MPV 7.8 L (7.9-10.8) fL Neut # (Auto) 2.6 (1.5-6.6) 10^3/uL Lymph # (Auto) 0.7 L (1.5-3.5) 10^3/uL Crisp # (Auto) 0.6 (0.0-1.0) 10^3/uL Eos # (Auto) 0.0 (0.0-0.7) 10^3/uL Baso # (Auto) 0.0 (0.0-0.1) 10^3/uL Absolute Nucleated RBC 0.00 x10^3/uL Nucleated RBC % 0.1 /100WBC Sodium 125 L (135-145) mmol/L Potassium 4.0 (3.5-5.0) mmol/L Chloride 88 L (101-111) mmol/L Carbon Dioxide 26 (21-32) mmol/L Anion Gap 11.0 (6-13) BUN 28 H (6-20) mg/dL Creatinine 1.1 H (0.4-1.0) mg/dL Estimated GFR (MDRD) 50 L (>89) Glucose 94 (70-100) mg/dL Lactic Acid (0.5-2.2) mmol/L Calcium 7.4 L (8.5-10.3) mg/dL Magnesium (1.7-2.8) mg/dL Iron (28-170) ug/dL TIBC (250-450) ug/dL % Saturation (20-50) % Transferrin (192-382) mg/dL Total Bilirubin 1.4 H (0.2-1.0) mg/dL AST 21 (10-42) IU/L ALT 14 (10-60) IU/L Alkaline Phosphatase 114 (42-121) IU/L Total Protein 6.2 L (6.7-8.2) g/dL Albumin 2.5 L (3.2-5.5) g/dL Globulin 3.7 (2.1-4.2) g/dL Albumin/Globulin Ratio 0.7 L (1.0-2.2) Lipase (22-51) U/L Urine Color BROWN Urine Clarity SL. CLOUDY (CLEAR) Urine pH 5.5 (5.0-7.5) PH Ur Specific [place] >=1.030 H (1.002-1.030) Urine Protein TRACE (NEGATIVE) mg/dL Urine Glucose (UA) NEGATIVE (NEGATIVE) mg/dL Urine Ketones 15 H (NEGATIVE) mg/dL Urine Occult Blood NEGATIVE (NEGATIVE) Urine Nitrite NEGATIVE (NEGATIVE) Urine Bilirubin NEGATIVE (NEGATIVE) Urine Urobilinogen 0.2 (NORMAL) (NORMAL) E.U./dL Ur Leukocyte Esterase NEGATIVE (NEGATIVE) Urine RBC None Seen (0-5) /HPF Urine WBC 0-3 (0-5) /HPF Ur Squamous Epith Cells FEW Squamous (<= Few) Amorphous Sediment Moderate /LPF Urine Bacteria None Seen (None Seen) /HPF Urine Casts 26-50Course Granular /LPF Urine Mucus Marked Strands Ur Microscopic Review INDICATED Urine Culture Comments NOT INDICATED MRSA Surveill Initial (NEGATIVE) 07/16/18 07/16/18 07/16/18 Range/Units 21:49 21:48 13:48 WBC (4.8-10.8) x10^3/uL RBC (4.20-5.40) 10^6/uL Hgb (12.0-16.0) g/dL Hct (37.0-47.0) % MCV (81.0-99.0) fL MCH (27.0-31.0) pg MCHC (32.0-36.0) g/dL RDW (12.0-15.0) % Plt Count (130-450) 10^3/uL MPV (7.9-10.8) fL Neut # (Auto) (1.5-6.6) 10^3/uL Lymph # (Auto) (1.5-3.5) 10^3/uL Crisp # (Auto) (0.0-1.0) 10^3/uL Eos # (Auto) (0.0-0.7) 10^3/uL Baso # (Auto) (0.0-0.1) 10^3/uL Absolute Nucleated RBC x10^3/uL Nucleated RBC % /100WBC Sodium (135-145) mmol/L Potassium (3.5-5.0) mmol/L Chloride (101-111) mmol/L Carbon Dioxide (21-32) mmol/L Anion Gap (6-13) BUN (6-20) mg/dL Creatinine (0.4-1.0) mg/dL Estimated GFR (MDRD) (>89) Glucose (70-100) mg/dL Lactic Acid 2.0 (0.5-2.2) mmol/L Calcium (8.5-10.3) mg/dL Magnesium (1.7-2.8) mg/dL Iron 14 L (28-170) ug/dL TIBC 220 L (250-450) ug/dL % Saturation 6 L (20-50) % Transferrin 157 L (192-382) mg/dL Total Bilirubin (0.2-1.0) mg/dL AST (10-42) IU/L ALT (10-60) IU/L Alkaline Phosphatase (42-121) IU/L Total Protein (6.7-8.2) g/dL Albumin (3.2-5.5) g/dL Globulin (2.1-4.2) g/dL Albumin/Globulin Ratio (1.0-2.2) Lipase (22-51) U/L Urine Color Urine Clarity (CLEAR) Urine pH (5.0-7.5) PH Ur Specific [place] (1.002-1.030) Urine Protein (NEGATIVE) mg/dL Urine Glucose (UA) (NEGATIVE) mg/dL Urine Ketones (NEGATIVE) mg/dL Urine Occult Blood (NEGATIVE) Urine Nitrite (NEGATIVE) Urine Bilirubin (NEGATIVE) Urine Urobilinogen (NORMAL) E.U./dL Ur Leukocyte Esterase (NEGATIVE) Urine RBC (0-5) /HPF Urine WBC (0-5) /HPF Ur Squamous Epith Cells (<= Few) Amorphous Sediment /LPF Urine Bacteria (None Seen) /HPF Urine Casts /LPF Urine Mucus Ur Microscopic Review Urine Culture Comments MRSA Surveill Initial NEGATIVE (NEGATIVE) 07/16/18 07/16/18 07/16/18 Range/Units 13:00 13:00 13:00 WBC 6.6 (4.8-10.8) x10^3/uL RBC 4.42 (4.20-5.40) 10^6/uL Hgb 10.8 L (12.0-16.0) g/dL Hct 32.2 L (37.0-47.0) % MCV 73.0 L (81.0-99.0) fL MCH 24.5 L (27.0-31.0) pg MCHC 33.6 (32.0-36.0) g/dL RDW 19.3 H (12.0-15.0) % Plt Count 204 (130-450) 10^3/uL MPV 8.2 (7.9-10.8) fL Neut # (Auto) 4.8 (1.5-6.6) 10^3/uL Lymph # (Auto) 1.1 L (1.5-3.5) 10^3/uL Crisp # (Auto) 0.7 (0.0-1.0) 10^3/uL Eos # (Auto) 0.0 (0.0-0.7) 10^3/uL Baso # (Auto) 0.0 (0.0-0.1) 10^3/uL Absolute Nucleated RBC 0.00 x10^3/uL Nucleated RBC % 0.0 /100WBC Sodium 123 L (135-145) mmol/L Potassium 4.4 (3.5-5.0) mmol/L Chloride 78 L* (101-111) mmol/L Carbon Dioxide 27 (21-32) mmol/L Anion Gap 18.0 H (6-13) BUN 35 H (6-20) mg/dL Creatinine 1.8 H (0.4-1.0) mg/dL Estimated GFR (MDRD) 28 L (>89) Glucose 182 H (70-100) mg/dL Lactic Acid (0.5-2.2) mmol/L Calcium 8.3 L (8.5-10.3) mg/dL Magnesium 2.5 (1.7-2.8) mg/dL Iron (28-170) ug/dL TIBC (250-450) ug/dL % Saturation (20-50) % Transferrin (192-382) mg/dL Total Bilirubin 1.8 H (0.2-1.0) mg/dL AST 28 (10-42) IU/L ALT 18 (10-60) IU/L Alkaline Phosphatase 130 H (42-121) IU/L Total Protein 7.5 (6.7-8.2) g/dL Albumin 3.1 L (3.2-5.5) g/dL Globulin 4.4 H (2.1-4.2) g/dL Albumin/Globulin Ratio 0.7 L (1.0-2.2) Lipase 18 L (22-51) U/L Urine Color Urine Clarity (CLEAR) Urine pH (5.0-7.5) PH Ur Specific [place] (1.002-1.030) Urine Protein (NEGATIVE) mg/dL Urine Glucose (UA) (NEGATIVE) mg/dL Urine Ketones (NEGATIVE) mg/dL Urine Occult Blood (NEGATIVE) Urine Nitrite (NEGATIVE) Urine Bilirubin (NEGATIVE) Urine Urobilinogen (NORMAL) E.U./dL Ur Leukocyte Esterase (NEGATIVE) Urine RBC (0-5) /HPF Urine WBC (0-5) /HPF Ur Squamous Epith Cells (<= Few) Amorphous Sediment /LPF Urine Bacteria (None Seen) /HPF Urine Casts /LPF Urine Mucus Ur Microscopic Review Urine Culture Comments MRSA Surveill Initial (NEGATIVE)
--- NOTE | 2018-07-17 08:14 | PROVIDER PROGRESS NOTE ---
Subjective - Prog Note Date Prog Note Date: 07/17/18 Prog Note Time: 08:12 - Subjective Pt reports feeling: No change (c/o persistent crampy abd pains, nausea and vomiting despite NG tube in place; no flatus/stool) Objective - Vital Signs/Intake & Output Reviewed Vital Signs: Yes Vital Signs: Vital Signs Temp Pulse Pulse Resp BP Pulse Ox 07/17/18 08:03 112/59 L 07/17/18 07:42 37.8 C H 124 H 21 95 07/17/18 07:00 115 H 23 108/56 L 100 07/17/18 06:00 129 H 23 109/60 100 07/17/18 05:00 118 H 19 117/59 L 100 Intake & Output: Intake & Output 07/14/18 07/15/18 07/16/18 07/17/18 23:59 23:59 23:59 23:59 Intake Total 1131.25 3559.75 Output Total 500 1385 Balance 631.25 2174.75 - Objective General Appearance: positive: Alert, Moderate distress (c/o nausea) Eyes Bilateral: positive: No scleral icterus ENT: positive: Dry mucous membranes Neck: positive: No JVD Respiratory: positive: Chest non-tender, No respiratory distress, Wheezes, Rales, Rhonchi Cardiovascular: positive: Regular rate & rhythm Abdomen: positive: Non-tender (soft, no guarding/rebound), No organomegaly, Abnml bowel sounds (hypoactive). negative: No distention (mild distention), Guarding, Rebound, Hepatomegaly, Splenomegaly, Mass Extremities: positive: Non-tender, No pedal edema. negative: Calf tenderness Neurologic/Psychiatric: positive: Oriented x3 - Lab Results Fish Bones: 07/17/18 04:53 07/17/18 04:53 Other Labs: Lab Results x24hrs 07/17/18 07/17/18 07/16/18 Range/Units 04:53 04:53 22:45 WBC 3.9 L (4.8-10.8) x10^3/uL RBC 3.70 L (4.20-5.40) 10^6/uL Hgb 9.1 L (12.0-16.0) g/dL Hct 28.4 L (37.0-47.0) % MCV 76.9 L (81.0-99.0) fL MCH 24.5 L (27.0-31.0) pg MCHC 31.9 L (32.0-36.0) g/dL RDW 19.7 H (12.0-15.0) % Plt Count 203 (130-450) 10^3/uL MPV 7.8 L (7.9-10.8) fL Neut # (Auto) 2.6 (1.5-6.6) 10^3/uL Lymph # (Auto) 0.7 L (1.5-3.5) 10^3/uL [place] # (Auto) 0.6 (0.0-1.0) 10^3/uL Eos # (Auto) 0.0 (0.0-0.7) 10^3/uL Baso # (Auto) 0.0 (0.0-0.1) 10^3/uL Absolute Nucleated RBC 0.00 x10^3/uL Nucleated RBC % 0.1 /100WBC Sodium 125 L (135-145) mmol/L Potassium 4.0 (3.5-5.0) mmol/L Chloride 88 L (101-111) mmol/L Carbon Dioxide 26 (21-32) mmol/L Anion Gap 11.0 (6-13) BUN 28 H (6-20) mg/dL Creatinine 1.1 H (0.4-1.0) mg/dL Estimated GFR (MDRD) 50 L (>89) Glucose 94 (70-100) mg/dL Lactic Acid (0.5-2.2) mmol/L Calcium 7.4 L (8.5-10.3) mg/dL Magnesium (1.7-2.8) mg/dL Iron (28-170) ug/dL TIBC (250-450) ug/dL % Saturation (20-50) % Transferrin (192-382) mg/dL Total Bilirubin 1.4 H (0.2-1.0) mg/dL AST 21 (10-42) IU/L ALT 14 (10-60) IU/L Alkaline Phosphatase 114 (42-121) IU/L Total Protein 6.2 L (6.7-8.2) g/dL Albumin 2.5 L (3.2-5.5) g/dL Globulin 3.7 (2.1-4.2) g/dL Albumin/Globulin Ratio 0.7 L (1.0-2.2) Lipase (22-51) U/L Urine Color BROWN Urine Clarity SL. CLOUDY (CLEAR) Urine pH 5.5 (5.0-7.5) PH Ur Specific [place] >=1.030 H (1.002-1.030) Urine Protein TRACE (NEGATIVE) mg/dL Urine Glucose (UA) NEGATIVE (NEGATIVE) mg/dL Urine Ketones 15 H (NEGATIVE) mg/dL Urine Occult Blood NEGATIVE (NEGATIVE) Urine Nitrite NEGATIVE (NEGATIVE) Urine Bilirubin NEGATIVE (NEGATIVE) Urine Urobilinogen 0.2 (NORMAL) (NORMAL) E.U./dL Ur Leukocyte Esterase NEGATIVE (NEGATIVE) Urine RBC None Seen (0-5) /HPF Urine WBC 0-3 (0-5) /HPF Ur Squamous Epith Cells FEW Squamous (<= Few) Amorphous Sediment Moderate /LPF Urine Bacteria None Seen (None Seen) /HPF Urine Casts 26-50Course Granular /LPF Urine Mucus Marked Strands Ur Microscopic Review INDICATED Urine Culture Comments NOT INDICATED MRSA Surveill Initial (NEGATIVE) 07/16/18 07/16/18 07/16/18 Range/Units 21:49 21:48 13:48 WBC (4.8-10.8) x10^3/uL RBC (4.20-5.40) 10^6/uL Hgb (12.0-16.0) g/dL Hct (37.0-47.0) % MCV (81.0-99.0) fL MCH (27.0-31.0) pg MCHC (32.0-36.0) g/dL RDW (12.0-15.0) % Plt Count (130-450) 10^3/uL MPV (7.9-10.8) fL Neut # (Auto) (1.5-6.6) 10^3/uL Lymph # (Auto) (1.5-3.5) 10^3/uL [place] # (Auto) (0.0-1.0) 10^3/uL Eos # (Auto) (0.0-0.7) 10^3/uL Baso # (Auto) (0.0-0.1) 10^3/uL Absolute Nucleated RBC x10^3/uL Nucleated RBC % /100WBC Sodium (135-145) mmol/L Potassium (3.5-5.0) mmol/L Chloride (101-111) mmol/L Carbon Dioxide (21-32) mmol/L Anion Gap (6-13) BUN (6-20) mg/dL Creatinine (0.4-1.0) mg/dL Estimated GFR (MDRD) (>89) Glucose (70-100) mg/dL Lactic Acid 2.0 (0.5-2.2) mmol/L Calcium (8.5-10.3) mg/dL Magnesium (1.7-2.8) mg/dL Iron 14 L (28-170) ug/dL TIBC 220 L (250-450) ug/dL % Saturation 6 L (20-50) % Transferrin 157 L (192-382) mg/dL Total Bilirubin (0.2-1.0) mg/dL AST (10-42) IU/L ALT (10-60) IU/L Alkaline Phosphatase (42-121) IU/L Total Protein (6.7-8.2) g/dL Albumin (3.2-5.5) g/dL Globulin (2.1-4.2) g/dL Albumin/Globulin Ratio (1.0-2.2) Lipase (22-51) U/L Urine Color Urine Clarity (CLEAR) Urine pH (5.0-7.5) PH Ur Specific [place] (1.002-1.030) Urine Protein (NEGATIVE) mg/dL Urine Glucose (UA) (NEGATIVE) mg/dL Urine Ketones (NEGATIVE) mg/dL Urine Occult Blood (NEGATIVE) Urine Nitrite (NEGATIVE) Urine Bilirubin (NEGATIVE) Urine Urobilinogen (NORMAL) E.U./dL Ur Leukocyte Esterase (NEGATIVE) Urine RBC (0-5) /HPF Urine WBC (0-5) /HPF Ur Squamous Epith Cells (<= Few) Amorphous Sediment /LPF Urine Bacteria (None Seen) /HPF Urine Casts /LPF Urine Mucus Ur Microscopic Review Urine Culture Comments MRSA Surveill Initial NEGATIVE (NEGATIVE) 07/16/18 07/16/18 07/16/18 Range/Units 13:00 13:00 13:00 WBC 6.6 (4.8-10.8) x10^3/uL RBC 4.42 (4.20-5.40) 10^6/uL Hgb 10.8 L (12.0-16.0) g/dL Hct 32.2 L (37.0-47.0) % MCV 73.0 L (81.0-99.0) fL MCH 24.5 L (27.0-31.0) pg MCHC 33.6 (32.0-36.0) g/dL RDW 19.3 H (12.0-15.0) % Plt Count 204 (130-450) 10^3/uL MPV 8.2 (7.9-10.8) fL Neut # (Auto) 4.8 (1.5-6.6) 10^3/uL Lymph # (Auto) 1.1 L (1.5-3.5) 10^3/uL [place] # (Auto) 0.7 (0.0-1.0) 10^3/uL Eos # (Auto) 0.0 (0.0-0.7) 10^3/uL Baso # (Auto) 0.0 (0.0-0.1) 10^3/uL Absolute Nucleated RBC 0.00 x10^3/uL Nucleated RBC % 0.0 /100WBC Sodium 123 L (135-145) mmol/L Potassium 4.4 (3.5-5.0) mmol/L Chloride 78 L* (101-111) mmol/L Carbon Dioxide 27 (21-32) mmol/L Anion Gap 18.0 H (6-13) BUN 35 H (6-20) mg/dL Creatinine 1.8 H (0.4-1.0) mg/dL Estimated GFR (MDRD) 28 L (>89) Glucose 182 H (70-100) mg/dL Lactic Acid (0.5-2.2) mmol/L Calcium 8.3 L (8.5-10.3) mg/dL Magnesium 2.5 (1.7-2.8) mg/dL Iron (28-170) ug/dL TIBC (250-450) ug/dL % Saturation (20-50) % Transferrin (192-382) mg/dL Total Bilirubin 1.8 H (0.2-1.0) mg/dL AST 28 (10-42) IU/L ALT 18 (10-60) IU/L Alkaline Phosphatase 130 H (42-121) IU/L Total Protein 7.5 (6.7-8.2) g/dL Albumin 3.1 L (3.2-5.5) g/dL Globulin 4.4 H (2.1-4.2) g/dL Albumin/Globulin Ratio 0.7 L (1.0-2.2) Lipase 18 L (22-51) U/L Urine Color Urine Clarity (CLEAR) Urine pH (5.0-7.5) PH Ur Specific [place] (1.002-1.030) Urine Protein (NEGATIVE) mg/dL Urine Glucose (UA) (NEGATIVE) mg/dL Urine Ketones (NEGATIVE) mg/dL Urine Occult Blood (NEGATIVE) Urine Nitrite (NEGATIVE) Urine Bilirubin (NEGATIVE) Urine Urobilinogen (NORMAL) E.U./dL Ur Leukocyte Esterase (NEGATIVE) Urine RBC (0-5) /HPF Urine WBC (0-5) /HPF Ur Squamous Epith Cells (<= Few) Amorphous Sediment /LPF Urine Bacteria (None Seen) /HPF Urine Casts /LPF Urine Mucus Ur Microscopic Review Urine Culture Comments MRSA Surveill Initial (NEGATIVE) Assessment/Plan - Problem List (1) Small bowel obstruction Impression: Unchanged; high grade partial; no evidence of strangulation obstruction or acute abdomen at present, but no significant improvement overnight. Plan: correct elec trolyte abnormalities, continue volume resuscitation, gastrograffin challenge test today; again consider transfer to [facility] if bed available as surgery and postop course likely to be difficult and prolonged. Discussed with hospitalists, who are in agreement.
[2018-07-17] MEDS ORDERED: POLYETHYLENE GLYCOL 3350 17 GM PACKET PO SCH (09:00)
[2018-07-17] MEDS ORDERED: ACETAMINOPHEN 1,000 MG/100 ML 100 ML IV PRN (09:10)
[2018-07-17] MEDS: LEVALBUTEROL 1.25 MG/3 ML NEB INH PRN ×3 (09:44→18:31)
--- NOTE | 2018-07-17 10:21 | XRAY Report ---
Reason: gastrograffin challenge Procedure Date: 07/17/2018 Accession Number: [id number] / [id number] Procedure: XR - Abdomen 1 View X-Ray CPT Code: 94015 FULL RESULT: EXAM: ABDOMEN RADIOGRAPHY EXAM DATE: 07/17/2018 08:32 AM. CLINICAL HISTORY: Gastrografin challenge. COMPARISON: ABDOMEN 1 VIEW 07/17/2018 8:10 AM. TECHNIQUE: 1 view. FINDINGS: Bowel Gas Pattern: Within normal limits. No dilated loops. Other: Oral contrast is seen within the stomach and proximal duodenum. Spinal fusion hardware appears unchanged. IMPRESSION: Oral contrast within the proximal duodenum. RADIA
[2018-07-17] MEDS: metroNIDAZOLE 500 MG/100 ML 500 MG/100 ML BAG IV SCH ×2 (10:27→18:22)
[2018-07-17 10:30] LABS: MAGNESIUM 2.1 mg/dL (1.7-2.8); PHOSPHORUS 1.7 mg/dL (2.5-4.6)
[2018-07-17] MEDS ORDERED: POTASSIUM PHOSPHATE 15 MMOL in SODIUM CHLORIDE 0.9% 250 ML IV ONE (10:46)
[2018-07-17] MEDS: CLINDAMYCIN 600 MG/50 ML 50 ML IV SCH ×2 (11:41→17:45)
--- NOTE | 2018-07-17 11:51 | XRAY Report ---
Reason: POST NG TUBE PLACEMENT CHECK Procedure Date: 07/16/2018 Accession Number: [id number] / [id number] Procedure: XR - Chest for Line Placement CPT Code: FULL RESULT: EXAM: CHEST RADIOGRAPHY EXAM DATE: 07/16/2018 10:12 PM. CLINICAL HISTORY: Nasogastric tube placement. COMPARISON: None. TECHNIQUE: 1 view. FINDINGS: Lungs/Pleura: Pulmonary vascular congestion versus bronchial wall thickening. Possible trace pleural effusions. No pneumothorax. Mediastinum: Within exam limitations, the cardiomediastinal contour is normal. Other: Enteric tube tip in the proximal stomach. Postoperative changes in the spine. IMPRESSION: 1. Enteric tube in the proximal stomach. 2. Pulmonary vascular congestion versus bronchial wall thickening and possible trace pleural effusions. RADIA
[2018-07-17] MEDS: MORPHINE 2 MG/ML CARPUJECT IVP PRN ×2 (12:18→20:04)
--- NOTE | 2018-07-17 13:36 | XRAY Report ---
Reason: gastrograffin challenge test Procedure Date: 07/17/2018 Accession Number: [id number] / [id number] Procedure: XR - Abdomen 1 View X-Ray CPT Code: 30704 FULL RESULT: EXAM: ABDOMEN RADIOGRAPHY EXAM DATE: 07/17/2018 08:11 AM. CLINICAL HISTORY: Gastrograffin challenge test. COMPARISON: ABDOMEN/PELVIS W/O 07/16/2018 2:32 PM. TECHNIQUE: 1 view. FINDINGS: Study is labeled immediate Bowel Gas Pattern: There is contrast in stomach and contrast in what appears to be dilated distal esophagus versus hiatal hernia Other: Post thoracolumbar fusion. Post left hip compression screw. IMPRESSION: Immediate film shows contrast in the stomach with dilated distal esophagus versus hiatal hernia RADIA
--- NOTE | 2018-07-17 15:48 | PROVIDER PROGRESS NOTE ---
Assessment/Plan - Problem List (1) Small bowel obstruction Assessment/Plan: Continue conservative management with ng decompression and general surgeon following. She has been accepted for transfer by a surgeon to [facility], but there are no bed available currently. (2) ARMIDA (acute kidney injury) Assessment/Plan: Creat improved from 1.8 to 1.1, with iv hydration. Continue iv fluids and monitor BMP daily. (3) Fever Assessment/Plan: Will, order blood cultures, iv Ofermev and start empiric coverage for bpwel oragnisms: iv Clinda and iv Flagyl. Folllow WBC. (4) V-tach Assessment/Plan: Possibly from low Phos, but K and Mg are normal. Will also check a troponin, EKG and obtain an Echo (she has never had one done here). Continue telemetry. (5) Anemia Qualifiers: Anemia type: iron deficiency Assessment/Plan: Continue to follow CBC daily, would transfuse if patient symptomatic or if Hgb <7. Would check B12 and folate, but no po replacement could be started now. (6) Bronchiectasis Assessment/Plan: No wheezing, but has yellow-brown sputum. Her resp rate is 20's-30's. The patient is followed at by a Probate Judge. her GI surgery would be complex, plus her correctional casework specialist is at , where we hope to transfer her to. (7) Depression Assessment/Plan: The patient is concerned that she has been unable to take her po antidepressants. Will ask for a Social Work eval. (8) Rib fractures Assessment/Plan: She had a fall 3 weeks ago and broke several ribs. Incentive Spirometry was ordered by admitting MD. Continue with pain control for good aeration and ventilation. (9) Hyponatremia Assessment/Plan: Peripheral iv with NS. Follow BMP daily. - Current Meds Current Meds: Current Medications Generic Name Dose Route Start Last Admin Trade Name Freq PRN Reason Stop Dose Admin Budesonide 0.5 mg 07/16/18 19:00 07/17/18 08:34 Pulmicort INH 0.5 mg RTBID ANIRUDH Administration Formoterol Fumarate 20 mcg 07/16/18 19:00 07/17/18 08:34 Perforomist INH 20 mcg RTBID ANIRUDH Administration Acetaminophen 100 mls @ 400 mls/hr 07/17/18 09:10 07/17/18 12:01 Ofirmev IV Infused Q6HR PRN Infusion Pain or Fever > 38C (100.4F) Clindamycin Phosphate 50 mls @ 100 mls/hr 07/17/18 12:00 07/17/18 12:16 Cleocin 600 Mg/50 Ml IV Infused Q6HR ANIRUDH Infusion Metronidazole 500 mg in 100 mls @ 100 mls/hr 07/17/18 10:00 07/17/18 11:31 Flagyl 500 Mg/100 Ml IV Infused Q8H ANIRUDH Infusion Levalbuterol HCl 1.25 mg 07/17/18 08:45 07/17/18 13:50 Xopenex INH 1.25 mg Q4H PRN Administration Shortness of Air/Wheezing Morphine Sulfate 2 mg 07/16/18 17:39 07/17/18 12:18 Morphine (Carpuject) IVP 2 mg Q2HR PRN Administration Pain 8 to 10 Ondansetron HCl 4 mg 07/16/18 17:39 07/17/18 02:29 Zofran Inj IVP 4 mg Q6HR PRN Administration Nausea / Vomiting Pantoprazole Sodium 40 mg 07/17/18 07:00 07/17/18 06:13 Protonix IVP 40 mg QDAC ANIRUDH Administration Sodium Chloride 10 ml 07/16/18 17:39 07/16/18 18:47 Normal Saline Flush 0.9% IVP 10 ml PRN PRN Administration NEEDED PER PROVIDER ORDERS Sodium Chloride 10 ml 07/17/18 01:00 07/17/18 09:09 Normal Saline Flush 0.9% IVP Not Given 0100,0900,1700 ANIRUDH - Lab Result Fish Bone Diagrams: 07/17/18 04:53 07/17/18 04:53 - EKG Results EKG Interpreted Independently: Yes EKG Comparison: Changed from prior EKG EKG Findings: Sinus tach, rate 99, atrial couplet, yessenia-lateral T wave abn (new since 11/05 EKG) - Additional Planning My Orders: My Active Orders 07/17/18 08:45 Levalbuterol [Xopenex] 1.25 mg INH Q4H PRN 07/17/18 09:10 Electrolyte [Initiate ICU Electrolyte Prot.] [RC] QSHIFT Acetaminophen 1,000 mg/100 ml [Ofirmev] 100 ml IV Q6HR 07/17/18 09:36 CULTURE, BLOOD #1 [RM] Stat 07/17/18 10:00 metroNIDAZOLE 500 MG/100 ML [Flagyl 500 mg/100 ml] 500 mg in 100 ml IV Q8H 07/17/18 10:12 CULTURE, BLOOD #2 [RM] Stat 07/17/18 12:00 Clindamycin 600 mg/50 ml [Cleocin 600 mg/50 ml] 50 ml IV Q6HR Subjective - Subjective Patient Reports: Resting Comfortably Nursing Reports: Other (100 cc of ng output to LIS over just 2 hours this am.) Objective Vital Signs: Vital Signs - 24 hr 07/16/18 07/16/18 07/16/18 17:37 18:24 18:44 Temperature 37.0 C Heart Rate 68 Heart Rate [ Brachial] Heart Rate [ Monitoring electrodes] Heart Rate [ 109 H Radial] Respiratory 18 Rate Blood Pressure 100/60 Blood Pressure 102/53 L [Right Brachial artery] O2 Saturation 90 L 99 95 07/16/18 07/16/18 07/17/18 20:41 21:59 01:15 Temperature 37.5 C Heart Rate Heart Rate [ Brachial] Heart Rate [ Monitoring electrodes] Heart Rate [ 103 H 108 H 108 H Radial] Respiratory 18 18 Rate Blood Pressure Blood Pressure 114/53 L 102/52 L 105/54 L [Right Brachial artery] O2 Saturation 90 L 100 07/17/18 07/17/18 07/17/18 02:00 03:00 04:00 Temperature 36.9 C 37.3 C Heart Rate Heart Rate [ 108 H 116 H Brachial] Heart Rate [ Monitoring electrodes] Heart Rate [ 104 H Radial] Respiratory 18 22 21 Rate Blood Pressure Blood Pressure 105/53 L 110/58 L 109/59 L [Right Brachial artery] O2 Saturation 97 100 100 07/17/18 07/17/18 07/17/18 05:00 06:00 07:00 Temperature Heart Rate Heart Rate [ 118 H 129 H 115 H Brachial] Heart Rate [ Monitoring electrodes] Heart Rate [ Radial] Respiratory 19 23 23 Rate Blood Pressure Blood Pressure 117/59 L 109/60 108/56 L [Right Brachial artery] O2 Saturation 100 100 100 07/17/18 07/17/18 07/17/18 07:42 08:03 08:37 Temperature 37.8 C H Heart Rate 113 H Heart Rate [ Brachial] Heart Rate [ 124 H Monitoring electrodes] Heart Rate [ Radial] Respiratory 21 20 Rate Blood Pressure Blood Pressure 112/59 L [Right Brachial artery] O2 Saturation 95 07/17/18 07/17/18 07/17/18 09:08 09:44 10:00 Temperature 37.8 C H 37.3 C Heart Rate 117 H Heart Rate [ Brachial] Heart Rate [ 118 H Monitoring electrodes] Heart Rate [ Radial] Respiratory 22 19 Rate Blood Pressure Blood Pressure 111/60 [Right Brachial artery] O2 Saturation 4 L 07/17/18 07/17/18 07/17/18 11:00 12:00 12:53 Temperature 37.2 C Heart Rate Heart Rate [ Brachial] Heart Rate [ 124 H 120 H 117 H Monitoring electrodes] Heart Rate [ Radial] Respiratory 22 22 22 Rate Blood Pressure Blood Pressure 102/60 105/43 L 105/43 L [Right Brachial artery] O2 Saturation 97 95 97 07/17/18 07/17/18 07/17/18 12:56 13:50 13:52 Temperature Heart Rate 109 H Heart Rate [ Brachial] Heart Rate [ 117 H 114 H Monitoring electrodes] Heart Rate [ Radial] Respiratory 22 16 20 Rate Blood Pressure Blood Pressure 105/43 L 97/58 L [Right Brachial artery] O2 Saturation 97 97 07/17/18 15:00 Temperature Heart Rate Heart Rate [ Brachial] Heart Rate [ 107 H Monitoring electrodes] Heart Rate [ Radial] Respiratory 21 Rate Blood Pressure Blood Pressure 107/62 [Right Brachial artery] O2 Saturation 98 Oxygen O2 Source Nasal cannula I&O (Last 24 Hrs): Intake and Output Totals x24h 07/15/18 07/16/18 07/17/18 23:59 23:59 23:59 Intake Total 1131.25 4789.750 Output Total 500 2333 Balance 631.25 2456.750 General: Alert, Oriented x3 HEENT: Mucous membr. moist/pink Neck: Supple Neuro: Non Focal Cardiovascular: Regular rate, No murmurs, Other (Tachy) Respiratory: No respiratory distress, Breath sounds nml Abdomen: Soft, Other (No bowel sounds) Extremities: No edema - Results Results: Laboratory Results WBC 3.9 x10^3/uL (4.8-10.8) L 07/17/18 04:53 RBC 3.70 10^6/uL (4.20-5.40) L 07/17/18 04:53 Hgb 9.1 g/dL (12.0-16.0) L 07/17/18 04:53 Hct 28.4 % (37.0-47.0) L 07/17/18 04:53 MCV 76.9 fL (81.0-99.0) L 07/17/18 04:53 MCH 24.5 pg (27.0-31.0) L 07/17/18 04:53 MCHC 31.9 g/dL (32.0-36.0) L 07/17/18 04:53 RDW 19.7 % (12.0-15.0) H 07/17/18 04:53 Plt Count 203 10^3/uL (130-450) 07/17/18 04:53 MPV 7.8 fL (7.9-10.8) L 07/17/18 04:53 Neut # (Auto) 2.6 10^3/uL (1.5-6.6) 07/17/18 04:53 Lymph # (Auto) 0.7 10^3/uL (1.5-3.5) L 07/17/18 04:53 [place] # (Auto) 0.6 10^3/uL (0.0-1.0) 07/17/18 04:53 Eos # (Auto) 0.0 10^3/uL (0.0-0.7) 07/17/18 04:53 Baso # (Auto) 0.0 10^3/uL (0.0-0.1) 07/17/18 04:53 Absolute Nucleated RBC 0.00 x10^3/uL 07/17/18 04:53 Nucleated RBC % 0.1 /100WBC 07/17/18 04:53 Sodium 125 mmol/L (135-145) L 07/17/18 04:53 Potassium 4.0 mmol/L (3.5-5.0) 07/17/18 04:53 Chloride 88 mmol/L (101-111) L 07/17/18 04:53 Carbon Dioxide 26 mmol/L (21-32) 07/17/18 04:53 Anion Gap 11.0 (6-13) 07/17/18 04:53 BUN 28 mg/dL (6-20) H 07/17/18 04:53 Creatinine 1.1 mg/dL (0.4-1.0) H 07/17/18 04:53 Estimated GFR (MDRD) 50 (>89) L 07/17/18 04:53 Glucose 94 mg/dL (70-100) 07/17/18 04:53 Lactic Acid 2.0 mmol/L (0.5-2.2) 07/16/18 13:48 Calcium 7.4 mg/dL (8.5-10.3) L 07/17/18 04:53 Phosphorus 1.7 mg/dL (2.5-4.6) L 07/17/18 10:12 Magnesium 2.1 mg/dL (1.7-2.8) 07/17/18 10:12 Iron 14 ug/dL (28-170) L 07/16/18 21:48 TIBC 220 ug/dL (250-450) L 07/16/18 21:48 % Saturation 6 % (20-50) L 07/16/18 21:48 Transferrin 157 mg/dL (192-382) L 07/16/18 21:48 Total Bilirubin 1.4 mg/dL (0.2-1.0) H 07/17/18 04:53 AST 21 IU/L (10-42) 07/17/18 04:53 ALT 14 IU/L (10-60) 07/17/18 04:53 Alkaline Phosphatase 114 IU/L (42-121) 07/17/18 04:53 Total Protein 6.2 g/dL (6.7-8.2) L 07/17/18 04:53 Albumin 2.5 g/dL (3.2-5.5) L 07/17/18 04:53 Globulin 3.7 g/dL (2.1-4.2) 07/17/18 04:53 Albumin/Globulin Ratio 0.7 (1.0-2.2) L 07/17/18 04:53 Lipase 18 U/L (22-51) L 07/16/18 13:00 Urine Color BROWN 07/16/18 22:45 Urine Clarity SL. CLOUDY (CLEAR) 07/16/18 22:45 Urine pH 5.5 PH (5.0-7.5) 07/16/18 22:45 Ur Specific [place] >=1.030 (1.002-1.030) H 07/16/18 22:45 Urine Protein TRACE mg/dL (NEGATIVE) 07/16/18 22:45 Urine Glucose (UA) NEGATIVE mg/dL (NEGATIVE) 07/16/18 22:45 Urine Ketones 15 mg/dL (NEGATIVE) H 07/16/18 22:45 Urine Occult Blood NEGATIVE (NEGATIVE) 07/16/18 22:45 Urine Nitrite NEGATIVE (NEGATIVE) 07/16/18 22:45 Urine Bilirubin NEGATIVE (NEGATIVE) 07/16/18 22:45 Urine Urobilinogen 0.2 (NORMAL) E.U./dL (NORMAL) 07/16/18 22:45 Ur Leukocyte Esterase NEGATIVE (NEGATIVE) 07/16/18 22:45 Urine RBC None Seen /HPF (0-5) 07/16/18 22:45 Urine WBC 0-3 /HPF (0-5) 07/16/18 22:45 Ur Squamous Epith Cells FEW Squamous (<= Few) 07/16/18 22:45 Amorphous Sediment Moderate /LPF 07/16/18 22:45 Urine Bacteria None Seen /HPF (None Seen) 07/16/18 22:45 Urine Casts 26-50Course Granular /LPF 07/16/18 22:45 Urine Mucus Marked Strands 07/16/18 22:45 Ur Microscopic Review INDICATED 07/16/18 22:45 Urine Culture Comments NOT INDICATED 07/16/18 22:45 MRSA Surveill Initial NEGATIVE (NEGATIVE) 07/16/18 21:49 - Procedures Procedures: Procedures CREAT ESOPHAGASTR SPHINC (02/26/13) OTH & OPEN REPAIR OF DIAPHRAGMATIC HERNIA, ABDOMINL APPROACH (02/26/13) REPAIR OF DIAPHRAGMATIC HERNIA, ABDOMINAL APPROACH, NOS (12/28/12) REPOSITION LEFT UPPER FEMUR WITH INTRAMED FIX, PERC APPROACH (11/17/16) THORACENTESIS (10/27/13) TRANSFUSE NONAUT RED BLOOD CELLS IN PERIPH VEIN, PERC (11/17/16)
[2018-07-17] MEDS ORDERED: D5NS W/20 MEQ KCL 1,000 ML IV SCH (17:00)
--- NOTE | 2018-07-17 22:02 | XRAY Report ---
Reason: gastrograffin challenge Procedure Date: 07/17/2018 Accession Number: [id number] / [id number] Procedure: XR - Abdomen 1 View X-Ray CPT Code: 46565 FULL RESULT: EXAM: ABDOMEN RADIOGRAPHY EXAM DATE: 07/17/2018 08:35 PM. CLINICAL HISTORY: Gastrograffin challenge. COMPARISON: ABDOMEN 1 VIEW 07/17/2018 12:03 PM. TECHNIQUE: 1 view. FINDINGS: Bowel Gas Pattern: This study was obtained 12 hours following Gastrografin administration. Diluted enteric contrast is seen within multiple dilated small bowel loops throughout the abdomen and pelvis. There is gas and stool in the ascending colon, which does not appear to contain enteric contrast. Other: Redemonstrated spinal fixation hardware throughout the lower thoracic and lumbar spine. Partially visualized postoperative changes to the proximal left femur. Mild patchy opacities in lung bases may represent atelectasis. Probable small bilateral pleural effusions. IMPRESSION: Enteric contrast not definitively within the colon, as described above. RADIA
[2018-07-18] MEDS: MORPHINE 2 MG/ML CARPUJECT IVP PRN ×5 (00:50→12:18)
[2018-07-18] MEDS: metroNIDAZOLE 500 MG/100 ML 500 MG/100 ML BAG IV SCH ×2 (02:22→09:55)
[2018-07-18 05:04] LABS: BASOPHILS % (AUTO) 0.4 %; EOSINOPHILS % (AUTO) 0.3 %; HGB - HEMOGLOBIN 8.7 g/dL (12.0-16.0); LYMPHOCYTES # (AUTO) 0.7 10^3/uL (1.5-3.5); LYMPHOCYTES % (AUTO) 17.2 %; MEAN CORPUSCULAR HEMOGLOBIN 25.2 pg (27.0-31.0); MEAN CORPUSCULAR HGB CONC 32.9 g/dL (32.0-36.0); MEAN CORPUSCULAR VOLUME 76.6 fL (81.0-99.0); MEAN PLATELET VOLUME 7.7 fL (7.9-10.8); MONOCYTES # (AUTO) 0.7 10^3/uL (0.0-1.0); MONOCYTES % (AUTO) 18.4 %; NEUTROPHILS # (AUTO) 2.5 10^3/uL (1.5-6.6); NEUTROPHILS % (AUTO) 63.7 %; PLT - PLATELET COUNT 220 10^3/uL (130-450); RED BLOOD COUNT 3.47 10^6/uL (4.20-5.40); RED CELL DISTRIBUTION WIDTH 19.6 % (12.0-15.0)
[2018-07-18] MEDS: SODIUM CHLORIDE FLUSH 0.9% 10 ML SYRINGE IVP SCH ×2 (05:20→08:45)
[2018-07-18 05:47] LABS: PLATELET ESTIMATE, MANUAL NORMAL (130-450,000) (NORMAL)
[2018-07-18] MEDS ORDERED: D5NS W/20 MEQ KCL 1,000 ML IV SCH (06:12)
[2018-07-18] MEDS: CLINDAMYCIN 600 MG/50 ML 50 ML IV SCH ×3 (06:12→12:23)
[2018-07-18] MEDS: PANTOPRAZOLE 40 MG VIAL IVP SCH (06:27)
[2018-07-18 06:34] LABS: ALBUMIN 2.4 g/dL (3.2-5.5); CALCIUM 7.2 mg/dL (8.5-10.3); CREATININE 0.9 mg/dL (0.4-1.0); MAGNESIUM 2.5 mg/dL (1.7-2.8)
[2018-07-18] MEDS ORDERED: POTASSIUM PHOSPHATE 15 MMOL in SODIUM CHLORIDE 0.9% 250 ML IV SCH (06:43)
--- NOTE | 2018-07-18 08:26 | PROVIDER PROGRESS NOTE ---
Subjective - Prog Note Date Prog Note Date: 07/18/18 Prog Note Time: 08:24 - Subjective Pt reports feeling: No change (Still with intermittent N/V despite NG tube patent and draining; crampy abd pains, no flatus or stool per rectum; was able to get some rest last night; no dyspnea) Objective - Vital Signs/Intake & Output Reviewed Vital Signs: Yes Vital Signs: Vital Signs Pulse Resp BP Pulse Ox 07/18/18 07:00 119 H 32 H 91/57 L 96 07/18/18 06:00 117 H 20 99/65 96 07/18/18 05:00 122 H 20 110/69 95 Intake & Output: Intake & Output 07/15/18 07/16/18 07/17/18 07/18/18 23:59 23:59 23:59 23:59 Intake Total 1131.25 5426.000 1108.75 Output Total 500 3832 1210 Balance 631.25 1594.000 -101.25 - Objective General Appearance: positive: Alert, Mild distress Eyes Bilateral: positive: No scleral icterus ENT: positive: Dry mucous membranes Neck: positive: No JVD Respiratory: positive: Chest non-tender, No respiratory distress, Other (clear to ausc anteriorly) Cardiovascular: positive: Regular rate & rhythm, No murmur, No gallop Abdomen: positive: No organomegaly, Tenderness (mild RLQ tenderness without guarding/rebound;), Abnml bowel sounds (hypoactive bowel tones), Other (mild distention). negative: Guarding, Rebound Skin: positive: Warm, Dry Extremities: positive: No pedal edema. negative: Calf tenderness Neurologic/Psychiatric: positive: Oriented x3 - Lab Results Fish Bones: 07/18/18 04:20 07/18/18 04:20 Other Labs: Lab Results x24hrs 07/18/18 07/18/18 07/17/18 Range/Units 04:20 04:20 16:09 WBC 4.0 L (4.8-10.8) x10^3/uL RBC 3.47 L (4.20-5.40) 10^6/uL Hgb 8.7 L (12.0-16.0) g/dL Hct 26.6 L (37.0-47.0) % MCV 76.6 L (81.0-99.0) fL MCH 25.2 L (27.0-31.0) pg MCHC 32.9 (32.0-36.0) g/dL RDW 19.6 H (12.0-15.0) % Plt Count 220 (130-450) 10^3/uL MPV 7.7 L (7.9-10.8) fL Neut # (Auto) 2.5 (1.5-6.6) 10^3/uL Lymph # (Auto) 0.7 L (1.5-3.5) 10^3/uL [place] # (Auto) 0.7 (0.0-1.0) 10^3/uL Eos # (Auto) 0.0 (0.0-0.7) 10^3/uL Baso # (Auto) 0.0 (0.0-0.1) 10^3/uL Absolute Nucleated RBC 0.00 x10^3/uL Nucleated RBC % 0.0 /100WBC Manual Slide Review Indicated Platelet Estimate NORMAL (130-450,000) (NORMAL) RBC Morph Micro Appear 1+ HYPOCHROMASIA (NORMAL) Sodium 129 L (135-145) mmol/L Potassium 3.9 (3.5-5.0) mmol/L Chloride 94 L (101-111) mmol/L Carbon Dioxide 26 (21-32) mmol/L Anion Gap 9.0 (6-13) BUN 17 (6-20) mg/dL Creatinine 0.9 (0.4-1.0) mg/dL Estimated GFR (MDRD) 63 L (>89) Glucose 145 H (70-100) mg/dL Calcium 7.2 L (8.5-10.3) mg/dL Phosphorus 2.0 L (2.5-4.6) mg/dL Magnesium 2.5 (1.7-2.8) mg/dL Troponin I < 0.04 (<0.49) ng/mL Albumin 2.4 L (3.2-5.5) g/dL 07/17/18 Range/Units 10:12 WBC (4.8-10.8) x10^3/uL RBC (4.20-5.40) 10^6/uL Hgb (12.0-16.0) g/dL Hct (37.0-47.0) % MCV (81.0-99.0) fL MCH (27.0-31.0) pg MCHC (32.0-36.0) g/dL RDW (12.0-15.0) % Plt Count (130-450) 10^3/uL MPV (7.9-10.8) fL Neut # (Auto) (1.5-6.6) 10^3/uL Lymph # (Auto) (1.5-3.5) 10^3/uL [place] # (Auto) (0.0-1.0) 10^3/uL Eos # (Auto) (0.0-0.7) 10^3/uL Baso # (Auto) (0.0-0.1) 10^3/uL Absolute Nucleated RBC x10^3/uL Nucleated RBC % /100WBC Manual Slide Review Platelet Estimate (NORMAL) RBC Morph Micro Appear (NORMAL) Sodium (135-145) mmol/L Potassium (3.5-5.0) mmol/L Chloride (101-111) mmol/L Carbon Dioxide (21-32) mmol/L Anion Gap (6-13) BUN (6-20) mg/dL Creatinine (0.4-1.0) mg/dL Estimated GFR (MDRD) (>89) Glucose (70-100) mg/dL Calcium (8.5-10.3) mg/dL Phosphorus 1.7 L (2.5-4.6) mg/dL Magnesium 2.1 (1.7-2.8) mg/dL Troponin I (<0.49) ng/mL Albumin (3.2-5.5) g/dL - Diagnostic Imaging Diagnostic Imaging Results: positive: Final report reviewed, Read contemporaneously Diagnostic Imaging Comments: serial KUBs with gastrograffin challenge show contrast in small bowel but not in colon as of 12 hour film last night; 24 hour film this am is pending; small amount of gas is seen in ascending colon on 12 hour film. Assessment/Plan - Problem List (1) Small bowel obstruction Impression: Clinically not improved; appears to have failed her gastrograffin challenge test. Rec: exploratory laparotomy; pt prefers to have surgery done at or other major facility, but no beds available at this time per hospitalists. Pt will discuss situation further with her and [place] If no beds continue to be available I am happy to perform the surgery if the pt desires. PAR conference was held with the patient, and consent is pending above developments.
--- NOTE | 2018-07-18 08:36 | XRAY Report ---
Reason: gastrograffin challenge Procedure Date: 07/18/2018 Accession Number: [id number] / [id number] Procedure: XR - Abdomen 1 View X-Ray CPT Code: 48557 FULL RESULT: EXAM: ABDOMEN RADIOGRAPHY EXAM DATE: 07/18/2018 08:04 AM. CLINICAL HISTORY: 24 hours status post Gastrografin challenge. COMPARISON: Supine abdomen 8 PM yesterday. TECHNIQUE: 1 view. FINDINGS: Bowel Gas Pattern: Dilute enteric contrast again seen in dilated small bowel loops in the abdomen and pelvis. Some contrast has progressed into the descending colon. Decompressed more distal colon and rectum. Other: Scoliosis with spinal fixation hardware, left hip on fixation hardware, and right upper quadrant clips again seen. Pelvic phleboliths. IMPRESSION: 1. Consistent with relatively high-grade SBO. Interval progression of some enteric contrast into the ascending colon. RADIA
[2018-07-18] MEDS: SODIUM CHLORIDE FLUSH 0.9% 10 ML SYRINGE IVP PRN ×2 (09:56→12:24)
[2018-07-18] MEDS: LEVALBUTEROL 1.25 MG/3 ML NEB INH PRN (10:15)
[2018-07-18] MEDS: BUDESONIDE 0.5 MG/2 ML NEB INH SCH (10:15)
[2018-07-18] MEDS: FORMOTEROL FUMARATE NEB 20 MCG/2 ML INH SCH (10:15)
--- NOTE | 2018-07-18 11:04 | ANESTHESIA ---
Pre-Anesthesia VS, & Labs - Diagnosis Diagnosis SBO, high grade partial; no evidence of strangulation obstruction or complete obstruction or acute abdomen at present. Etiology likely due to adhesions; neoplasm less likely. - Procedure Exploratory laparotomy Vital Signs: Temp Pulse Resp BP Pulse Ox 37.6 C H 122 H 19 94/64 94 07/18/18 09:00 07/18/18 10:00 07/18/18 10:00 07/18/18 10:00 07/18/18 10:00 Height 5 ft 6 in Weight (kg) 70.5 kg Body Mass Index 24.7 - NPO >8 hours - Is Patient ?: No - Lab Results Current Lab Results: Laboratory Tests 07/18/18 04:20: Sodium 129 L, Potassium 3.9, Chloride 94 L, Carbon Dioxide 26, Anion Gap 9.0, BUN 17, Creatinine 0.9, Estimated GFR (MDRD) 63 L, Glucose 145 H, Calcium 7.2 L, Phosphorus 2.0 L, Magnesium 2.5, Albumin 2.4 L 07/18/18 04:20: WBC 4.0 L, RBC 3.47 L, Hgb 8.7 L, Hct 26.6 L, MCV 76.6 L, MCH 25.2 L, MCHC 32.9, RDW 19.6 H, Plt Count 220, MPV 7.7 L, Neut # (Auto) 2.5, Lymph # (Auto) 0.7 L, [place] # (Auto) 0.7, Eos # (Auto) 0.0, Baso # (Auto) 0.0, Absolute Nucleated RBC 0.00, Nucleated RBC % 0.0, Manual Slide Review Indicated, Platelet Estimate NORMAL (130-450,000), RBC Morph Micro Appear 1+ HYPOCHROMASIA 07/17/18 16:09: Troponin I < 0.04 07/17/18 10:12: Phosphorus 1.7 L, Magnesium 2.1 07/17/18 04:53: Sodium 125 L, Potassium 4.0, Chloride 88 L, Carbon Dioxide 26, Anion Gap 11.0, BUN 28 H, Creatinine 1.1 H, Estimated GFR (MDRD) 50 L, Glucose 94, Calcium 7.4 L, Total Bilirubin 1.4 H, AST 21, ALT 14, Alkaline Phosphatase 114, Total Protein 6.2 L, Albumin 2.5 L, Globulin 3.7, Albumin/Globulin Ratio 0.7 L 07/17/18 04:53: WBC 3.9 L, RBC 3.70 L, Hgb 9.1 L, Hct 28.4 L, MCV 76.9 L, MCH 24.5 L, MCHC 31.9 L, RDW 19.7 H, Plt Count 203, MPV 7.8 L, Neut # (Auto) 2.6, Lymph # (Auto) 0.7 L, [place] # (Auto) 0.6, Eos # (Auto) 0.0, Baso # (Auto) 0.0, Absolute Nucleated RBC 0.00, Nucleated RBC % 0.1 07/16/18 21:48: Iron 14 L, TIBC 220 L, % Saturation 6 L, Transferrin 157 L 07/16/18 13:48: Lactic Acid 2.0 07/16/18 13:00: Magnesium 2.5 07/16/18 13:00: Sodium 123 L, Potassium 4.4, Chloride 78 L*, Carbon Dioxide 27, Anion Gap 18.0 H, BUN 35 H, Creatinine 1.8 H, Estimated GFR (MDRD) 28 L, Glucose 182 H, Calcium 8.3 L, Total Bilirubin 1.8 H, AST 28, ALT 18, Alkaline Phosphatase 130 H, Total Protein 7.5, Albumin 3.1 L, Globulin 4.4 H, Albumin/Globulin Ratio 0.7 L, Lipase 18 L 07/16/18 13:00: WBC 6.6, RBC 4.42, Hgb 10.8 L, Hct 32.2 L, MCV 73.0 L, MCH 24.5 L, MCHC 33.6, RDW 19.3 H, Plt Count 204, MPV 8.2, Neut # (Auto) 4.8, Lymph # (Auto) 1.1 L, [place] # (Auto) 0.7, Eos # (Auto) 0.0, Baso # (Auto) 0.0, Absolute Nucleated RBC 0.00, Nucleated RBC % 0.0 Fish Bones: 07/18/18 04:20 07/18/18 04:20 Home Medications and Allergies Home Medications: Ambulatory Orders Duloxetine HCl [Cymbalta] 60 mg PO DAILY 07/16/18 Fluticasone [Flonase] 1 sprays HENRY DAILY 07/16/18 Fluticasone/Salmeterol [Advair 500-50 Diskus] 1 puffs INH BID 07/16/18 Phytonadione [Vitamin K] 100 mcg PO DAILY 07/16/18 Senna [Senokot] 25.8 mg PO QD 07/16/18 Vitamin E 400 unit PO DAILY 07/16/18 Active Medications Budesonide (Pulmicort) 0.5 mg INH RTBID ANIRUDH Last Admin: 07/18/18 10:15 Dose: 0.5 mg Formoterol Fumarate (Perforomist) 20 mcg INH RTBID ANIRUDH Last Admin: 07/18/18 10:15 Dose: 20 mcg Acetaminophen (Ofirmev) 100 mls @ 400 mls/hr IV Q6HR PRN PRN Reason: Pain or Fever > 38C (100.4F) Last Infusion: 07/17/18 12:01 Dose: Infused Clindamycin Phosphate (Cleocin 600 Mg/50 Ml) 50 mls @ 100 mls/hr IV Q6HR [facility] Last Infusion: 07/18/18 06:45 Dose: Infused Metronidazole (Flagyl 500 Mg/100 Ml) 500 mg in 100 mls @ 100 mls/hr IV Q8H [facility] Last Infusion: 07/18/18 10:55 Dose: Infused Potassium Chloride/Dextrose/Sod Cl () 1,000 mls @ 125 mls/hr IV .Q8H ANIRUDH Last Infusion: 07/18/18 08:50 Dose: 0 mls/hr Potassium Phosphate 15 mmol/ (Sodium Chloride) 255 mls @ 63 mls/hr IV ONCE ANIRUDH; Protocol Stop: 07/18/18 12:00 Last Infusion: 07/18/18 09:56 Dose: 0 mls/hr Levalbuterol HCl (Xopenex) 1.25 mg INH Q4H PRN PRN Reason: Shortness of Air/Wheezing Last Admin: 07/18/18 10:15 Dose: 1.25 mg Morphine Sulfate (Morphine (Carpuject)) 2 mg IVP Q2HR PRN PRN Reason: Pain 8 to 10 Last Admin: 07/18/18 10:25 Dose: 2 mg Ondansetron HCl (Zofran Inj) 4 mg IVP Q6HR PRN PRN Reason: Nausea / Vomiting Last Admin: 07/17/18 20:26 Dose: 4 mg Ondansetron HCl (Zofran Odt) 4 mg TL Q6HR PRN PRN Reason: Nausea / Vomiting Pantoprazole Sodium (Protonix) 40 mg IVP QDAC [facility] Last Admin: 07/18/18 06:27 Dose: 40 mg Sodium Chloride (Normal Saline Flush 0.9%) 10 ml IVP PRN PRN PRN Reason: NEEDED PER PROVIDER ORDERS Last Admin: 07/18/18 09:56 Dose: 10 ml Sodium Chloride (Normal Saline Flush 0.9%) 10 ml IVP 0100,0900,1700 [facility] Last Admin: 07/18/18 08:45 Dose: 10 ml Meloxicam [Mobic] 15 mg PO DAILY 12/12/12 Montelukast Sodium [Singulair] 10 mg PO DAILY 12/12/12 Ipratropium/Albuterol [Duoneb] 1 amp INH QID PRN 10/27/13 Albuterol Sulf [Ventolin Hfa Inhaler] 2 puffs INH Q4H PRN 11/17/16 Alendronate [Fosamax] 70 mg PO Q7D 11/17/16 Dicyclomine [Bentyl] 10 mg PO BID PRN 11/17/16 Esomeprazole Magnesium [Nexium] 40 mg PO QDAC 11/17/16 Levothyroxine Sodium [Synthroid] 50 mcg PO QDAC 11/17/16 Loratadine [Claritin] 10 mg PO DAILY 11/17/16 Morphine Sulfate [Ms Contin] 15 mg PO BID 11/17/16 oxyCODONE [Roxicodone] 5 mg PO BID PRN 11/17/16 Duloxetine HCl [Cymbalta] 60 mg PO DAILY 07/16/18 Fluticasone [Flonase] 1 sprays HENRY DAILY 07/16/18 Fluticasone/Salmeterol [Advair 500-50 Diskus] 1 puffs INH BID 07/16/18 Phytonadione [Vitamin K] 100 mcg PO DAILY 07/16/18 Senna [Senokot] 25.8 mg PO QD 07/16/18 Vitamin E 400 unit PO DAILY 07/16/18 Allergies/Adverse Reactions: Allergies Allergy/AdvReac Type Severity Reaction Status Date / Time peanut Allergy Severe anaphylaxis Verified 07/14/18 10:30 peas Allergy Intermediate Unknown Verified 07/16/18 18:06 Penicillins Allergy Intermediate unknown Verified 07/14/18 10:30 hydroxyzine HCl * Allergy Anxiety Verified 07/14/18 10:30 [From Vistaril] hydroxyzine pamoate * Allergy Anxiety Verified 07/14/18 10:30 [From Vistaril] tetanus toxoid, adsorbed Allergy Respiratory Verified 07/14/18 10:30 Anes History & Medical History - Medical History Cardiovascular: reports: None, Arrhythmia (Patient has frequent PVCs and PACs) Pulmonary: reports: Asthma, Pneumonia, Shortness of breath, Other (bronchiectasis; hx empyema. On home O2) Gastrointestinal: reports: GERD, Other (extensive abdominial surgery) Urinary: reports: Frequency Neuro: reports: None Musculoskeletal: reports: Osteoarthritis, Osteoporosis, Osteopenia, Scoliosis, Chronic back pain, Other (Patient has had fusion and instrumentation of neck and back.) Endocrine/Autoimmune: reports: HyPOthyroidism Blood Disorders: reports: None Skin: reports: None Smoking Status: Never smoker Psychosocial: reports: Other (Chronic opioid user.) - Surgical History General: Cholecystectomy, Hiatal hernia repair (x 2), Colonoscopy (2007 approx), Other (VIH repair 2018; remote LIH repair) Cardiothoracic: Other (drainage empyema) Orthopedic: Spine surgery Exam General: Alert, Oriented x3, Cooperative, No acute distress Cardiovascular: Other (irregular) Mental/Cognitive Status: Alert/Oriented X3, Normal for patient Plan Anesthesia Type: General (Patient is high risk for post op ventilator. Thoracic epidural is not an option due to extensive back surgeries.) Consent for Procedure(s) Verified and Reviewed: Yes Code Status: Attempt Resuscitation ASA classification: 4-Incapacitating disease Is this case an emergency?: Yes
--- NOTE | 2018-07-18 11:59 | Discharge Plan ---
Discharge Plan Disposition: 02 Transfer Acute Care Hosp No Smoking: If you smoke, Please STOP! Call for help. Follow-up with: Krysten Sellers DO [Primary Care Provider] -
[2018-07-18 12:04] VITALS: BP 109/59
--- NOTE | 2018-07-25 11:00 | DISCHARGE SUMMARY ---
Physician: Ryann Bhandari MD DATE OF ADMISSION: 07/16/2018 DATE OF DISCHARGE: 07/18/2018 HISTORY OF PRESENT ILLNESS: This is a 63-year-old female, with bronchiectasis and reactive airway disease, hypothyroidism, who presented to the emergency room with nausea and vomiting and was felt to have a viral syndrome and discharged. She returned back the next day with symptoms of nausea and vomiting and inability to keep anything down, as well as no passage of stool per rectum. She had a similar condition 1 year ago requiring gallbladder and ventral inguinal hernia repair surgery in [place] that resulted in a 2.5-week hospitalization for ileus and/or small-bowel obstruction, and her symptoms resolved with conservative management. The patient has had many abdominal surgeries including umbilical hernia repair x2, ventral hernia, and left inguinal hernia repair. She is admitted now with bowel obstruction presumed to be from adhesions from the prior multiple surgeries. HOSPITAL COURSE AND DISCHARGE DIAGNOSES 1. Bowel obstruction. The patient was started on NG tube decompression, and she had copious drainage of gastric secretions. She was given antiemetics as well as medications for pain control. She was seen in consultation by a general surgeon who felt that she would be a high-risk candidate to undergo surgery here due to her multiple prior abdominal surgeries plus her baseline cachexia, poor nutrition, and underlying pulmonary disease. She was accepted for transfer by general surgery at , but no beds were available. There was no improvement in her symptoms after 2 days.We contacted 3 more hospitals to accept her in transfer, for surgery at a higher level of care. Finally, the [facility] did accept her on the Hospitalist service of Dr. Ruth in a stepdown unit of the intensive care unit by , with the surgeon accepting her for the procedure being Dr. Marrero. She was transferred to [facility] on 07/18/2018. 2. History of abdominal surgery. Because of the multiple surgeries described above, her necessary surgical procedure was felt to be a high risk, and therefore our surgeon requested that she be transferred to a facility with a higher level of care. 3. Acute kidney injury. She is on IV hydration. Her labs showed evidence of volume depletion with a BUN of 35 and creatinine 1.8, which improved to 17 and 0.9 after 48 hours on IV fluids. 4. Fever. The patient did have a fever after the first day and was fully cultured, started on empiric IV antibiotics. The cultures remained negative through the time of discharge. 5. V-tach. The patient had multiple episodes of paroxysms of monomorphic v- tach. Troponin levels were done and were normal. Her electrolytes showed no hypokalemia; however, she did have hypomagnesemia that was mild and it was replaced. Because of the V-tach, an Echo was ordered, and this showed normal LV size and ejection fraction normal at 70%, mild right ventricular enlargement, but preserved RV function. The right- sided enlargement was presumed to be from her history of lung disease. 6. Anemia, iron deficiency. Her admission hemoglobin was 10.8, and from hemodilution dropped to 8.7 at the time of discharge. She did have iron studies done showing very low iron stores, with total iron of 14, TIBC of 220, percent saturation of 6. Iron replacement was planned but was not started orally while she was here because of her n.p.o. status. 7. Bronchiectasis. The patient currently is not experiencing any sputum or cough or shortness of breath. 8. Cor pulmonale. This was evident on the Echo that was done here. EKG shows low voltage, which is also consistent with her lung disease. 9. Depression. The patient has a history of this. She was not on p.o. antidepressants while here because of her n.p.o. status. 10. Rib fracture. After the first day of admission, she reported to her nurse that she had fallen recently and sustained a rib fracture and had intermittent pain in the area. Incentive spirometry was ordered in order to prevent atelectasis and pneumonia. The etiology of the fever as above may have also been atelectasis. Admission chest x-ray had shown pulmonary vascular congestion versus bronchial wall thickening and trace pleural effusions. 11. Hyponatremia. Her admission sodium was 123, which improved on IV saline hydration to 125 and was 129 at the time of transfer. 12. Hypothyroidism. The patient has a history of this, and was not on her p.o. levothyroxine LABS AND IMAGING: The patient underwent an oral contrast challenge given via n.g. tube and had sequential abdominal x-rays to look for appearance of contrast in the deidre. These showed continued bowel obstruction. All other labs and imaging were reviewed and are summarized above. ALLERGIES 1. PEANUTS 2. PEAS 3. PENICILLIN 4. VISTARIL 5. TETANUS TOXOID. MEDICATIONS AT THE TIME OF TRANSFER 1. IV saline. 2. Morphine p.r.n. 3. Zofran p.r.n. 4. Compazine p.r.n. 5. Albuterol inhaler p.r.n. 6. Pulmicort inhaler scheduled b.i.d. 7. Perforomist inhaler scheduled b.i.d. 8. Pepcid IV b.i.d. 9. Protonix 40 mg IV daily. 10. Xopenex inhaler p.r.n. 11. Ofirmev IV p.r.n. 12. Flagyl 500 mg IV q.8 hours. 13. Clindamycin 600 mg IV q.6 hours. 14. Potassium riders. CONDITION AT DISCHARGE: Serious. PHYSICAL EXAMINATION VITAL SIGNS: Blood pressure 109/60, heart rate 58 to 122 in sinus rhythm with PACs, mildly elevated temperature 37.6, respiratory rate 27, O2 saturation 93% on 4 liters nasal cannula. HEENT: Revealed oral mucosa to be dry, and NG tube in place. CHEST: Clear, no wheezing. CARDIAC: Heart sounds normal, no murmur. ABDOMEN: Mildly distended, mildly tense, mildly tender diffusely, and no bowel sounds heard in any quadrant. EXTREMITIES: Without edema. NEUROLOGIC: Intact. FOLLOWUP: This will be determined after her hospitalization at [facility] in [place]. CODE STATUS: FULL CODE. Time required to complete this entire discharge, chart review, contacting facilities to accept the patient, discussion with our siebel consultant, patient and , dictation: 65 min. TD: 07/25/2018 09:58 part 1 TD: 07/25/2018 09:[address] Krysten JANSEN
--- NOTE | 2018-07-25 11:30 | DISCHARGE SUMMARY ---
copied/combined with original incomplete document Corrections made in that combined document - deleting this extra continuation draft 07/25/18 jll Physician: Ryann Bhandari MD DATE OF ADMISSION: 07/16/2018 DATE OF DISCHARGE: 07/18/2018 Note: Audio issues, multiple blanks. Continuation of dictation, no date given. Section appears to be the end of Diagnoses. Hypothyroidism. The patient was not on her p.o. thyroid replacement while here. LABS AND IMAGING: The patient underwent a [TIME: 00:35] contrast [TIME: 00:40] challenge and potential x-rays to look for appearance of [TIME: 00:48] in the bowel, which showed minimal catastrophic activity and continued obstruction. It was for this instituting symptom that surgery was felt to be necessary. All other labs and imaging were reviewed and are summarized above. ALLERGIES 1. PEANUTS 2. PEAS 3. PENICILLIN 4. VISTARIL [TIME: 01:24]. MEDICATIONS AT THE TIME OF TRANSFER 1. IV saline. 2. P.r.n. morphine. 3. P.r.n. Zofran. 4. P.r.n. Compazine. 5. Albuterol inhaler p.r.n. 6. Pulmicort inhaler scheduled b.i.d. 7. Performance inhaler scheduled b.i.d. 8. Pepcid IV b.i.d. 9. Protonix 40 mg IV daily. 10. Xopenex inhaler p.r.n. 11. [TIME: 02:16] IV p.r.n. 12. Flagyl [TIME: 02:21] IV q.___[TIME: 02:21]-hours. 13. Clindamycin [TIME: 02:26] IV q.6-hours, [TIME: 02:32]. CONDITION AT DISCHARGE: [TIME: 02:36]. PHYSICAL EXAMINATION VITAL SIGNS: Blood pressure 109/60, heart rate 58 to 122 in sinus rhythm with PACs, [TIME: 02:51] temperature [TIME: 02:53], respiratory rate 27, O2 saturation 93% on 4 liters nasal cannula. HEENT: Revealed oral mucosa to be dry and [TIME: 03:03] in place. CHEST: Clear, no wheezing. HEART: Sounds normal, no murmur. ABDOMEN: Mildly distended, mildly [TIME: 03:13], mildly tender diffusely, and no bowel sounds heard in any quadrant. EXTREMITIES: Without edema. NEUROLOGIC: Intact. FOLLOWUP: To be determined after her hospitalization at [facility] in [place]. CODE STATUS: FULL CODE. Time required to complete this entire discharge, chart review, contacting facilities to accept the patient, discussion with [TIME: 03:49]: minutes. TD: 07/25/2018 09:58 INDERJIT
== END 2018-07-18 13:00 | disposition short-term general hospital (02) | DRG 388 ==
LOC: ED 11:56 → MS2 17:39 → ICU 20:00 → MS2 21:27 → UNDODISIN 07-18 13:00
PROVIDERS: ADMIT Specialist; ATTEND Internal Medicine
DX: K56.609 Unspecified intestinal obstruction, unspecified as to partial versus complete obstruction (principal); K56.51 Intestinal adhesions [bands], with partial obstruction; R57.1 Hypovolemic shock; S22.49XA Multiple fractures of ribs, unspecified side, initial encounter for closed fracture; N17.9 Acute kidney failure, unspecified; I47.2 Ventricular tachycardia; J98.11 Atelectasis; E87.1 Hypo-osmolality and hyponatremia; J45.909 Unspecified asthma, uncomplicated; E03.9 Hypothyroidism, unspecified; K21.9 Gastro-esophageal reflux disease without esophagitis; B34.9 Viral infection, unspecified; R35.0 Frequency of micturition; F32.9 Major depressive disorder, single episode, unspecified; M19.90 Unspecified osteoarthritis, unspecified site; M85.80 Other specified disorders of bone density and structure, unspecified site; M41.9 Scoliosis, unspecified; G89.29 Other chronic pain; M54.9 Dorsalgia, unspecified; D50.9 Iron deficiency anemia, unspecified; J47.9 Bronchiectasis, uncomplicated; I27.81 Cor pulmonale (chronic); R50.9 Fever, unspecified; W19.XXXA Unspecified fall, initial encounter; Z91.010 Allergy to peanuts; Z88.0 Allergy status to penicillin; Z88.7 Allergy status to serum and vaccine; Z91.018 Allergy to other foods; K44.9 Diaphragmatic hernia without obstruction or gangrene; E87.6 Hypokalemia
CPT/HCPCS: 36415; 74018; 74176; 80048; 80053; 81001; 82040; 83540; 83605; 83690; 83735; 84100; 84466; 84484; 85025; 87040; 87150; 93005; 93306; 94640; 96361; 96374; 96375; 99284; J0131; J7120; J7626; 71045; 81003; 87086

== ENCOUNTER 2018-08-01 13:55 | Outpatient (CLI) | payer MEDICARE ==
--- NOTE | 2018-08-01 15:32 | XRAY Report ---
Reason: SBO Procedure Date: 08/01/2018 Accession Number: [id number] / [id number] Procedure: WCP - Abdomen 2 View X-Ray CPT Code: 64293 FULL RESULT: EXAM: ABDOMEN RADIOGRAPHY EXAM DATE: 08/01/2018 02:02 PM. CLINICAL HISTORY: Small bowel obstruction. COMPARISON: ABDOMEN 1 VIEW 07/18/2018 8:04 AM. ABDOMEN 1 VIEW 07/17/2018 8:10 AM. ABDOMEN/PELVIS W/O 07/16/2018 2:32 PM. TECHNIQUE: 2 views. FINDINGS: Lung Bases: Small bilateral pleural effusions greater on the right. Adjacent subsegmental basilar opacity possibly atelectasis. Bowel Gas Pattern: Large colonic stool burden, greatest in the ascending colon. Residual mild dilatation of 2-3 air-filled loops of small bowel in the left abdomen. No significant free air. Free Air: As above. Other: Midline laparotomy fransico from recent surgery. Long spinal instrumentation hardware appears stable. Prior vertebroplasty in the lower thoracic spine. Prior left hip pinning. Clips in the right upper quadrant from prior cholecystectomy. IMPRESSION: 1. Nonspecific bowel gas pattern with large colonic stool burden and several mildly dilated loops of small bowel in the left abdomen, favor mild ileus. 2. Bilateral effusions, right greater than left, with adjacent basilar opacity which could be atelectasis or possibly aspiration in the right clinical context. RADIA
== END 2018-08-01 13:56 | disposition home or self-care (01) ==
LOC: DI.WCP 13:55
PROVIDERS: ATTEND Family Medicine
DX: K56.609 Unspecified intestinal obstruction, unspecified as to partial versus complete obstruction (principal); J90 Pleural effusion, not elsewhere classified
CPT/HCPCS: 74019

== ENCOUNTER 2018-08-28 08:00 | Outpatient (CLI) | payer MEDICARE ==
[2018-08-28 19:03] LABS: BASOPHILS % (AUTO) 0.9 %; EOSINOPHILS % (AUTO) 0.1 %; HGB - HEMOGLOBIN 7.9 g/dL (12.0-16.0); LYMPHOCYTES % (AUTO) 18.1 %; MEAN CORPUSCULAR HEMOGLOBIN 26.8 pg (27.0-31.0); MEAN CORPUSCULAR HGB CONC 33.1 g/dL (32.0-36.0); MEAN CORPUSCULAR VOLUME 81.1 fL (81.0-99.0); MEAN PLATELET VOLUME 8.2 fL (7.9-10.8); MONOCYTES % (AUTO) 14.7 %; NEUTROPHILS % (AUTO) 66.2 %; PLT - PLATELET COUNT 114 10^3/uL (130-450); RED BLOOD COUNT 2.96 10^6/uL (4.20-5.40); RED CELL DISTRIBUTION WIDTH 19.6 % (12.0-15.0); WHITE BLOOD COUNT 5.2 x10^3/uL (4.8-10.8)
[2018-08-28 19:45] LABS: ALBUMIN 2.2 g/dL (3.2-5.5); ALBUMIN/GLOBULIN RATIO 0.6 (1.0-2.2); BILIRUBIN,TOTAL 1.5 mg/dL (0.2-1.0); CREATININE 0.6 mg/dL (0.4-1.0)
[2018-08-28 20:16] LABS: ABNORMAL LYMPHS % (MANUAL) 1 %; BAND NEUTROPHILS % (MANUAL) 7 %; BASOPHILS # (MANUAL) 0.1 10^3/uL (0-0.1); BASOPHILS % (MANUAL) 1 %; LYMPHOCYTES # (MANUAL) 0.6 10^3/uL (1.5-3.5); LYMPHOCYTES % (MANUAL) 9 %; NEUTROPHILS # (MANUAL) 3.5 10^3/uL (1.5-6.6); NEUTROPHILS % (MANUAL) 61 %
[2018-08-28 20:18] LABS: DIFFERENTIAL COMMENT MANUAL DIFFERENTIAL; PLATELET ESTIMATE, MANUAL DECREASED (<130,000) (NORMAL); PLATELET MORPHOLOGY NORMAL APPEARANCE (NORMAL)
== END 2018-08-28 23:59 | disposition home or self-care (01) ==
LOC: LAB.WCP 08:00
PROVIDERS: ATTEND Nurse Practitioner
DX: E87.1 Hypo-osmolality and hyponatremia (principal); J18.9 Pneumonia, unspecified organism
CPT/HCPCS: 36415; 80053; 85025

== ENCOUNTER 2018-08-29 10:55 | Outpatient (CLI) | payer MEDICARE ==
[2018-08-29 12:58] LABS: ALBUMIN 2.2 g/dL (3.2-5.5); ALBUMIN/GLOBULIN RATIO 0.6 (1.0-2.2); BILIRUBIN,TOTAL 1.4 mg/dL (0.2-1.0); CALCIUM 7.4 mg/dL (8.5-10.3); CREATININE 0.5 mg/dL (0.4-1.0); TOTAL PROTEIN 5.9 g/dL (6.7-8.2)
== END 2018-08-29 10:56 | disposition home or self-care (01) ==
LOC: LAB 10:55
PROVIDERS: ATTEND Family Medicine
DX: E87.1 Hypo-osmolality and hyponatremia (principal)
CPT/HCPCS: 36415; 80053; 83930; 83935; 84300

== ENCOUNTER 2018-08-31 10:05 | Outpatient (CLI) | payer MEDICARE ==
[2018-08-31 10:30] LABS: CALCIUM 7.6 mg/dL (8.5-10.3); CREATININE 0.6 mg/dL (0.4-1.0)
== END 2018-08-31 10:06 | disposition home or self-care (01) ==
LOC: LAB 10:05
PROVIDERS: ATTEND Family Medicine
DX: E27.40 Unspecified adrenocortical insufficiency (principal)
CPT/HCPCS: 36415; 80048

== ENCOUNTER 2018-09-04 08:00 | Outpatient (CLI) | payer MEDICARE ==
[2018-09-04 18:06] LABS: HGB - HEMOGLOBIN 8.3 g/dL (12.0-16.0); MEAN CORPUSCULAR HEMOGLOBIN 26.8 pg (27.0-31.0); MEAN CORPUSCULAR HGB CONC 32.4 g/dL (32.0-36.0); MEAN CORPUSCULAR VOLUME 82.6 fL (81.0-99.0); MEAN PLATELET VOLUME 7.9 fL (7.9-10.8); RED BLOOD COUNT 3.1 10^6/uL (4.20-5.40); RED CELL DISTRIBUTION WIDTH 19.4 % (12.0-15.0); WHITE BLOOD COUNT 4.1 x10^3/uL (4.8-10.8)
[2018-09-04 18:45] LABS: CALCIUM 7.6 mg/dL (8.5-10.3); CREATININE 0.5 mg/dL (0.4-1.0)
[2018-09-04 18:53] LABS: FERRITIN 1393.6 ng/mL (11.0-306.8)
== END 2018-09-04 23:59 | disposition home or self-care (01) ==
LOC: LAB.F 08:00
PROVIDERS: ATTEND Family Medicine
DX: E87.1 Hypo-osmolality and hyponatremia (principal); D50.9 Iron deficiency anemia, unspecified
CPT/HCPCS: 36415; 80048; 82607; 82728; 85027

== ENCOUNTER 2018-09-12 14:45 | Outpatient (CLI) | payer MEDICARE ==
[2018-09-12 19:45] LABS: BASOPHILS % (AUTO) 0.8 %; EOSINOPHILS % (AUTO) 0.1 %; HGB - HEMOGLOBIN 9.6 g/dL (12.0-16.0); LYMPHOCYTES % (AUTO) 15.1 %; MEAN CORPUSCULAR HEMOGLOBIN 28.1 pg (27.0-31.0); MEAN CORPUSCULAR VOLUME 85.1 fL (81.0-99.0); MEAN PLATELET VOLUME 8.5 fL (7.9-10.8); MONOCYTES % (AUTO) 12.5 %; NEUTROPHILS % (AUTO) 71.5 %; PLT - PLATELET COUNT 82 10^3/uL (130-450); RED BLOOD COUNT 3.41 10^6/uL (4.20-5.40); RED CELL DISTRIBUTION WIDTH 18.7 % (12.0-15.0); WHITE BLOOD COUNT 5.7 x10^3/uL (4.8-10.8)
[2018-09-12 19:52] LABS: ABNORMAL LYMPHS % (MANUAL) 0 %
[2018-09-12 20:11] LABS: BAND NEUTROPHILS % (MANUAL) 3 %; DIFFERENTIAL COMMENT MANUAL DIFFERENTIAL; LYMPHOCYTES # (MANUAL) 0.9 10^3/uL (1.5-3.5); LYMPHOCYTES % (MANUAL) 16 %; MONOCYTES # (MANUAL) 0.8 10^3/uL (0.0-1.0); NEUTROPHILS % (MANUAL) 67 %; PLATELET ESTIMATE, MANUAL DECREASED (<130,000) (NORMAL); PLATELET MORPHOLOGY NORMAL APPEARANCE (NORMAL); RBC MORPHOLOGY (MULTIPLE) 1+ ANISOCYTOSIS (NORMAL)
[2018-09-12 20:31] LABS: ALBUMIN 1.8 g/dL (3.2-5.5); ALBUMIN/GLOBULIN RATIO 0.5 (1.0-2.2); BILIRUBIN,TOTAL 1.3 mg/dL (0.2-1.0); CALCIUM 7.4 mg/dL (8.5-10.3); CREATININE 0.5 mg/dL (0.4-1.0); TOTAL PROTEIN 5.4 g/dL (6.7-8.2)
== END 2018-09-12 14:46 | disposition home or self-care (01) ==
LOC: LAB.WCP 14:45
PROVIDERS: ATTEND Family Medicine
DX: E87.1 Hypo-osmolality and hyponatremia (principal); D50.9 Iron deficiency anemia, unspecified; D69.6 Thrombocytopenia, unspecified
CPT/HCPCS: 36415; 80053; 82607; 82728; 83010; 83540; 83615; 84466; 85025

== ENCOUNTER 2018-09-24 12:13 | Outpatient (CLI) | payer MEDICARE ==
[2018-09-24 20:05] LABS: BASOPHILS % (AUTO) 0.6 %; EOSINOPHILS % (AUTO) 0.3 %; HGB - HEMOGLOBIN 7.9 g/dL (12.0-16.0); LYMPHOCYTES # (AUTO) 0.8 10^3/uL (1.5-3.5); LYMPHOCYTES % (AUTO) 12.6 %; MEAN CORPUSCULAR HEMOGLOBIN 27.2 pg (27.0-31.0); MEAN CORPUSCULAR HGB CONC 31.9 g/dL (32.0-36.0); MEAN CORPUSCULAR VOLUME 85.1 fL (81.0-99.0); MEAN PLATELET VOLUME 8.8 fL (7.9-10.8); MONOCYTES # (AUTO) 0.9 10^3/uL (0.0-1.0); MONOCYTES % (AUTO) 13.1 %; NEUTROPHILS # (AUTO) 4.9 10^3/uL (1.5-6.6); NEUTROPHILS % (AUTO) 73.4 %; PLT - PLATELET COUNT 93 10^3/uL (130-450); RED CELL DISTRIBUTION WIDTH 19.8 % (12.0-15.0); WHITE BLOOD COUNT 6.7 x10^3/uL (4.8-10.8)
[2018-09-24 20:06] LABS: CALCIUM 7.3 mg/dL (8.5-10.3); CREATININE 0.6 mg/dL (0.4-1.0)
== END 2018-09-24 12:14 | disposition home or self-care (01) ==
LOC: LAB.WCP 12:13
PROVIDERS: ATTEND Family Medicine
DX: E87.1 Hypo-osmolality and hyponatremia (principal); E50.9 Vitamin A deficiency, unspecified
CPT/HCPCS: 36415; 80048; 85025

== ENCOUNTER 2018-10-03 15:51 | Outpatient (CLI) | payer MEDICARE | END 2018-10-03 15:52 | disposition short-term general hospital (02) | LOC: EMS 15:51 | PROVIDERS: ATTEND Surgery | DX: R53.1 Weakness (principal) | CPT/HCPCS: A0425; A0429; A0888 ==